=== PATIENT | male | born 1945 | race Caucasian/White ===

== ENCOUNTER 2024-11-03 08:10 | Emergency (ER) | payer OTHER, SELFPAY ==
--- OUTSIDE RECORDS SUMMARY | 2024-11-03 08:14 | XMS_ITS | Encounter Summary ---
Author Organization [employer] Address [address] [place] [address] Care Team Providers Care Thread Dresser Name Role Phone Devyn Blanc MD Primary Care Provider Reason for Visit * Reason Comments Medication Questions Entered automatical ly based on patient selection in [employer]. Encounter Details Date Type Department Care Team (Late st Contact Info) Description 08/17/2024 12:50 PM TOPOGRAPHICAL ENGINEER E-Visit [facility] [address] [address] Devyn Blanc MD [address] [place], [place] [id number] Chief Comp: Medication Questions Social History Tobacco Use Types Packs/Day Years Used Date Smoking Tobacco: Never Smokeless Tobacco: Never Alcohol Use Standard Drinks/Week Comments Yes 1 (1 standard drink = 0.6 oz pure alcohol) Alcoholic Drinks/day: Amount:1-2 drinks; Freq:2-3/week ; Sex and Gender Information Value Date Recorded Sex Assigned at Not on file Legal Sex Male 9:42 AM CDT Gender Identity Not on file Sexual Orientation Not on file Occupation Industry Job Start Date Job End Date Retired Not on file Not on file Not on file documented as of this encounter Nursing Notes * Mary Bai RN - 08/17/2024 4:06 PM CST RN called and spoke pharmacy. Pharmacy reports patient's prescription are typically sent to the [facility] in [place]. Phone number:[phone]. RN will inquire which pharmacy patient is requesting. GRAPHICAL ENGINEER documented in this encounter Plan of Treatment Upcoming Encounters Date Type Department Care Team (Late st Contact Info) Description 01/08/2025 8:30 AM CDT Appointment [facility] [address] [place] [address] [id number] Maurilio Seo MD [address] [facility] [address] [place] [phone] documented as of this encounter Visit Diagnoses Not on filedocumented in this encounter Care Teams Thread Dresser Relationship Specialty Start Date End Date Devyn Blanc MD [address] [place] [address] PCP - General Family Practice 07/11/24 documented as of this encounter
--- OUTSIDE RECORDS SUMMARY | 2024-11-03 08:14 | XMS_ITS | Clinical Summary ---
Author Organization [facility] Address [address] [place] [address] Care Team Providers Care Disease Management Nurse Name Role Phone Elsewhere, Pcp Primary Care Provider Unavailabl e Source Comments Patient records contain information from all sites at [facility]. For routine questions regarding patient records, call [phone] during business hours, M-F 8:00 AM - 5:00 PM Central Time. Record requests for emergency care only can be directed to [phone] at any time.[facility] Allergies No known active allergies Medications carbidopa-levodo pa (SINEMET) 25-100 mg per tablet Take 1 tablet by mouth 3 (three) times a day. Active finasteride (PROSCAR) 5 mg tablet Take 5 mg by mouth daily. Active losartan-hydroCH LOROthiazide (HYZAAR) 50-12.5 mg per tablet Take 1 tablet by mouth daily. Active memantine (NAMENDA) 10 mg tablet Take 10 mg by mouth 2 (two) times a day. Active psyllium husk (MetamuciL) 0.4 gram capsule Take 0.8 g by mouth 2 (two) times a day. Active pramipexole (MIRAPEX) 1.5 mg tablet Take 1.5 mg by mouth 3 (three) times a day. Active rasagiline (AZILECT) 1 mg tablet Take 1 mg by mouth daily. Active rivastigmine (EXELON) 4.6 mg/[address] 1 patch on the skin daily. Active simvastatin (ZOCOR) 20 mg tablet Take 20 mg by mouth at bedtime. Active ALPRAZolam (XANAX) 0.25 mg tablet 10/11/2023 Active amoxicillin-pot clavulanate (AUGMENTIN) 875-125 mg per tablet Take 1 tablet by mouth every 12 (twelve) hours. Active levoFLOXacin (LEVAQUIN) 750 mg tablet Take 750 mg by mouth every morning before breakfast. Active DULoxetine (CYMBALTA) [address] capsule Take 20 mg by mouth 2 (two) times a day. Active Active Problems Problem Noted Date Diagnosed Date Cellulitis Leg Right 10/01/2023 Parkinsonism Unspecified 10/01/2023 Hyperlipidemia 10/01/2023 Benign Prostatic Hyperplasia Without Obstruction 10/01/2023 Fracture Ankle Closed Subsequent Right Hypertriglyceridemia 09/07/2013 Overview (10/02/2023): Note: Unchanged - on fenofibrate Immunizations Immunization Administration Dates Next Due Influenza high dose QV(65 years or older) (PF) 0 10/02/2023 Social History Tobacco Use Types Packs/Day Years Used Date Smoking Tobacco: Never Smokeless Tobacco: Never Tobacco Cessation:Counseling Given: Not Answered [facility] [employer] Answer Date Recorded In the past 12 months has [facility] [employer], [employer], or water [employer] threatened to shut off services in your home? No 10/20/2023 Humiliation, Afraid, Rape, and Kick questionnair e Answer Date Recorded Within the last year, have y ou been afraid of your partner or ex-partner? No 10/02/2023 Within the last year, have y ou been humiliated or emotionally abused in other ways by your partner or ex-partner? No Within the last year, have y ou been kicked, hit, slapped, or otherwise physically hurt by your partner or ex-partner? No 10/02/2023 Within the last year, have y ou been raped or forced to have any kind of sexual activity by your partner or ex-partner? No 10/02/2023 Exercise Vital Sign Answer Date Recorde d On average, how many days pe r week do you engage in moderate to strenuous exercise (like a brisk walk)? 0 days 10/20/2023 On average, how many minutes do you engage in exercise at this level? 0 min 10/20/2023 Hunger Vital Sign Answer Date Recorded Within the past 12 months, y ou worried that your food would run out before you got the money to buy more. Never true 10/20/19 Within the past 12 months, t he food you bought just didn't last and you didn't have money to get more. Never true 10/20/2023 PRAPARE - Transportation Answer Date Re corded In the past 12 months, has l ack of transportation kept you from medical appointments or from getting medications? No 10/07 In the past 12 months, has l ack of transportation kept you from meetings, work, or from getting things needed for daily living? No 10/20/2023 Nutrition Answer Date Recorded On average, how many serving s of fruits and vegetables do you eat per day (serving size is equal to 1 cup or approximately the size of a tennis ball)? 0-2 10/20/2023 Dental Answer Date Recorded Dental: Regular Dentist No 10/20/19 Employment Answer Date Recorded Employment status Retired 10/20/2023 Housing Stability Answer Date Recorded What is your living situation today? I have a [facility] place to live 10/20/2023 Sex and Gender Information Value Date Recorded Sex Assigned at Male 10/20/2023 9:29 AM ELECTRICAL AND INSTRUMENTATION MECHANIC Legal Sex Male 5:50 AM ELECTRICAL AND INSTRUMENTATION MECHANIC Gender Identity Male 10/20/2023 9:29 AM ELECTRICAL AND INSTRUMENTATION MECHANIC Sexual Orientation Straight 10/20/2023 9: 29 AM ELECTRICAL AND INSTRUMENTATION MECHANIC Last Filed Vital Signs Vital Sign Reading Time Taken Comments Blood Pressure 106/80 10/05/2023 8:00 AM EST Pulse 84 10/05/2023 8:00 AM EST Temperature 36.6 C (97.8 F) 10/05/2023 8:00 AM EST Respiratory Rate 18 10/05/2023 8:00 AM EST Oxygen Saturation 95% 10/05/2023 8:00 AM EST Inhaled Oxygen Concentration - - Weight 86.7 kg (191 lb 3.2 oz) 10/01/2023 11:38 PM EST Height 180.3 cm (5' 11) 10/01/2023 11:38 PM EST Body Mass Index 26.67 10/01/2023 11:38 PM EST Plan of Treatment Health Maintenance Due Date Last Done Comments Hepatitis C Screening 1945 DTaP,Tdap,and Td Vaccines (1 - Tdap) 1965 Zoster Vaccines (1 of 2) 1996 RSV vaccine - (32-36 weeks) or 60+ years (1 - 1-dose 75+ series) 2021 COVID-19 Vaccine (4 - season) 2024 08/16/2021, 12/09/2020, 11/11/2020 Influenza Vaccine (#1) 2024 , 08/16/2021, 06/05/2020, Additional history exists Depression Screening (Annual PHQ-2) 09/06/2024 Fall Risk Screen (Annual) 09/06/2024 Creatinine Level (Kidney Function Test) 10/04/2024 10/04/2023, 10/03/2023, 10/02/2023, Additional history exists Potassium Level 10/04/2024 10/04/2023, 09/07, 10/02/2023, Additional history exists Sodium Level 10/04/2024 10/04/2023, 09/07, 10/02/2023, Additional history exists Pneumococcal vaccine (50+ years) Completed 03/16/2018, 10/07/2015 IPV Vaccines Aged Out No longer eligi ble based on patient's age to complete this topic Procedures Procedure Name Priority Date/Time Associated Diagnosis Comments BASIC METABOLIC PANEL, S/P Routine 10/04/2023 4:17 AM EST from Last 3 Months or Most Recently Relevant to Health Maintenance Results * Basic Metabolic Panel (10/04/2023 4:17 AM EST) Potassium, P 4.5 3.6 - 5.2 mmol/L 10/04/2023 5:25 AM EST [facility] Sodium, P 138 135 - 145 mmol/L 10/04/2023 5:25 AM EST [facility] Chloride, P 102 98 - 107 mmol/L 10/04/2023 5:25 AM EST [facility] Bicarbonate, P 25 22 - 29 mmol/L 10/04/2023 5:25 AM EST [facility] Anion Gap, P 11 7 - 15 10/04/2023 5:25 AM EST [facility] BUN (Blood Urea Nitrogen), P 17 8 - 24 mg/dL 10/04/2023 5:25 AM EST [facility] Creatinine 0.74 0.74 - 1.35 mg/dL 10/04/2023 5:25 AM EST [facility] Estimated GFR (eGFR) >90 >=60 mL/min/BSA 10/04/2023 5:25 AM EST [facility] Comment: Estimated GFR calculated using the 2020 CKD_EPI creatinine equation. Calcium, Total, P 9.5 8.8 - 10.2 mg/dL 10/04/2023 5:25 AM EST [facility] Glucose, P 97 70 - 140 mg/dL 10/04/2023 5:25 AM EST [facility] Blood (Blood, Venous) 10/04/2023 4:17 AM EST 10/04/2023 4:27 AM EST Venus Hagen M.D. LAB BLOOD ADD-ON Final Result [facility] [address] [place] [address], [facility] [place] [address] from Last 3 Months or Most Recently Relevant to Health Maintenance Insurance [employer] Advance Directives For more information, please contact: [phone] * Full Code (Latest Code Status on File) Date Activated Date Inactivated Comments 10/01/2023 10:34 PM 10/05/2023 1:47 PM Question Answer Comments Full Code: Discussed Care Teams Disease Management Nurse Relationship Specialty Start Date End Date Elsewhere, Pcp PCP - General Internal Medicine 10/01/23
--- OUTSIDE RECORDS SUMMARY | 2024-11-03 08:14 | XMS_ITS | Clinical Summary ---
Author Organization [facility] Address [address] [place] [address] Care Team Providers Care Other Spatial Scientist Name Role Phone Devyn Blanc MD Primary Care Provider Source Comments You are receiving this document as you are listed as the primary care provider,follow-up provider, or the patient has been referred to you for consultation.This is in compliance with the Medicare and[facility]centive [facility],which states Providers who transition their patient to another setting of careor provider of care or refers their patient to another provider of care shouldprovide summary care record for each transition of care or referral. [employer] Allergies No known active allergies Medications psyllium (METAMUCIL) 0.36 g CAPS Take 0.8 g by mouth. Active losartan-hydroc hlorothiazide (HYZAAR) 50-12.5 MG tablet Take 1 Tablet by mouth daily. 90 Tablet 3 07/11/2024 Active carbidopa-levod opa (SINEMET) 25-100 MG tablet Take 1 Tablet by mouth three times a day. 270 Tablet 3 07/24/2024 Active NUPLAZID 34 MG Take 1 Capsule (34 mg) by mouth daily. 90 Capsule 3 07/24/2024 Active rivastigmine (EXELON) 4.6 MG/24HR patch Apply 1 Patch to skin daily. 90 Patch 3 07/24/2024 Active pramipexole (MIRAPEX) 1.5 MG tablet Take 1 Tablet (1.5 mg) by mouth three times a day. 90 Tablet 3 07/24/2024 Active memantine (NAMENDA) 10 MG tablet Take 1 Tablet (10 mg) by mouth two times a day. 180 Tablet 3 07/24/2024 Active DULoxetine (CYMBALTA) 60 MG capsule Take 1 Capsule (60 mg) by mouth daily. 90 Capsule 3 08/22/2024 Active simvastatin (ZOCOR) 20 MG tablet Take 1 Tablet (20 mg) by mouth every evening. 90 Tablet 3 08/22/2024 Active losartan (COZAAR) 50 MG tablet Take 1 Tablet (50 mg) by mouth daily. with losartan-hyd rochlorothii azide 50-12.5 mg tablet. 90 Tablet 3 08/22/2024 Active nystatin (MYCOSTATIN) 267528 UNIT/ML suspension Take 10 mL by mouth. 06/19/2024 Active famotidine (PEPCID) 20 MG tablet Take 1 Tablet (20 mg) by mouth two times daily as needed for Heartburn. 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 07/11/2024 Memory changes 07/11/2024 Parkinson's disease 10/01/2023 Closed fracture of ankle 10/01/2023 Benign prostatic hyperplasia 08/13/2011 Essential hypertension 08/21/2010 Overview (04/28/2017): Hypertension Hyperlipidemia 07/16/2009 Undiagnosed cardiac murmurs 07/05/2008 Overview (04/28/2017): LW Modifier: Minimal Aortic valve insufficiency LW Onset: 2003 ; Heart Murmur Resolved Problems Problem Noted Date Diagnosed Date Resolved Date Special screening for malign ant neoplasms, colon 08/21/2010 07/11/2024 Overview (04/28/2017): LW Modifier: repeat in 10 yrs LW Onset: 03/2003 ; Ca Colon Screening Olecranon bursitis 07/05/2008 4 Overview (04/28/2017): LW Modifier: S/P I+D, right LW Onset: 2004 ; Bursitis Olecranon Other specified disorders of kidney and ureter 07/05/2008 07/11/2024 Overview (04/28/2017): LW Modifier: S/p surgery, right LW Onset: age 4 ; Kidney & Ureter Disorder NOS Esophageal reflux 02/10/2003 07/11/2024 Overview (04/28/2017): Gastroesophageal Reflux Disease Lumbago 02/10/2003 07/11/2024 Overview (04/28/2017): Pain Low Back Encounters Date Type Department Care Team Description 09/27/2024 Refill [facility] [address] [place] [address] Devyn Blanc MD Refill (finasteride (PROSCAR) 5 MG tablet [Pharmacy Med Name: FINASTERIDE 5 MG TABLET]) 09/05/2024 3:00 PM ROLLING ATTENDANT Lab Visit [facility] [address] [place] [address] Essential hypertension (HRC); Preop examination 09/05/2024 2:30 PM ROLLING ATTENDANT Pre-Op Visit [facility] [address] [place] [address] Devyn Blanc MD Preop examination (Primary Dx); Essential hypertension (HRC); Hyperlipidemia, unspecified hyperlipidemia type (HRC); Parkinson's disease, unspecified whether dyskinesia present, unspecified whether manifestations fluctuate (HRC); Benign prostatic hyperplasia, unspecified whether lower urinary tract symptoms present; Memory changes; History of bilateral knee replacement; Closed fracture of right ankle with delayed healing, subsequent encounter; Mild episode of recurrent major depressive disorder (HRC) 08/21/2024 1:00 PM ROLLING ATTENDANT E-Visit [facility] [address] [place] [address] Devyn Blanc MD Chief Comp: Medication Questions 08/21/2024 Refill [facility] [address] [place] [address] Devyn Blanc MD Refill 08/17/2024 12:50 PM ROLLING ATTENDANT E-Visit [facility] [address] [place] [address] Devyn Blanc MD Chief Comp: Medication Questions from Last 3 Months Immunizations Immunization Administration Dates Next Due Flu Vac Preserv Free (3+yrs) 06/15/2012, 08/13/2011,08/21/2010,2007 Influenza IIV4 (Quadrivalent ) Fluzone, 65+ Yrs 10/02/2023 PCV20 ([id number]) 09/05/2024 PPSV23 (Pneumovax) 06/15/2012 TDAP (ADACEL) 12/02/2010 Td 06/04/2003 Family History Medical History Relation Name Comments Osteoarthritis Mother High Cholesterol Brother 1 Maurilio High Cholesterol Brother 2 Reddy High Cholesterol Brother 3 High Cholesterol Brother 4 High Cholesterol Sister 1 Erika High Cholesterol Sister 2 Relation Name Status Comments Mother Brother 1 Maurilio Brother 2 Reddy Brother 3 Brother 4 Sister 1 Erika Sister 2 Social History Tobacco Use Types Packs/Day Years Used Date Smoking Tobacco: Never Smokeless Tobacco: Never Tobacco Cessation:Counseling Given: Not Answered Alcohol Use Standard Drinks/Week Comments Yes 6 (1 standard drink = 0.6 oz pure alcohol) Alcoholic Drinks/day: Amount:1-2 drinks; Freq:2-3/week ; PHQ-2 Answer Date Recorded PHQ-2 Score 1 09/05/2024 Sex and Gender Information Value Date Recorded Sex Assigned at Not on file Legal Sex Male 9:42 AM CDT Gender Identity Not on file Sexual Orientation Not on file Occupation Industry Job Start Date Job End Date Retired Not on file Not on file Not on file Last Filed Vital Signs Vital Sign Reading Time Taken Comments Blood Pressure 123/80 09/05/2024 2:18 PM ROLLING ATTENDANT Pulse 74 09/05/2024 2:18 PM ROLLING ATTENDANT Temperature 36.6 C (97.9 F) 09/22/2006 9:38 AM ROLLING ATTENDANT C: 36.6 C Respiratory Rate 16 09/22/2006 9:38 AM ROLLING ATTENDANT Oxygen Saturation 96% 09/22/2006 9:38 AM ROLLING ATTENDANT Inhaled Oxygen Concentration - - Weight 101.7 kg (224 lb 3.2 oz) 09/05/2024 2:18 PM ROLLING ATTENDANT Height 179.5 cm (5' 10.67) 09/05/2024 2:[address] Body Mass Index 31.56 09/05/2024 2:18 PM ROLLING ATTENDANT Plan of Treatment Upcoming Encounters Date Type Department Care Team (Late st Contact Info) Description 01/08/2025 8:30 AM CDT Appointment [facility] [address] [place], [place] [id number] Maurilio Seo MD [address] [facility] [address] [place] [phone] Health Maintenance Due Date Last Done Comments Hep C Screening (Preventive Services) 1945 Zoster/Shingles (1 of 2) 1996 Colonoscopy 05/13/2003 05/12/2003 DTaP/Tdap/Td (2 - Tdap) 12/02/2020 12/02/2010, 06/04 RSV (1 - 1-dose 75+ series) 2021 COVID-19 Vaccine ( - season) 2024 Influenza (#1) 2024 10/02/2023, 06/06, 08/13/2011, Additional history exists Medicare Annual Wellness Visit 09/06/2024 09/06/2023 (Completed) Cholesterol Discontinued 06/13/2012, 03/2011, 08/21/2010, Additional history exists Pneumococcal 50+ Yrs Completed 09/05/2024, 06/15/20 12 HepA Aged Out No longer eligi ble based on patient's age to complete this topic HepB Aged Out No longer eligi ble based on patient's age to complete this topic Hib Aged Out No longer eligi ble based on patient's age to complete this topic IPV (Polio) Aged Out No longer eligi ble based on patient's age to complete this topic MCV4 Aged Out No longer eligi ble based on patient's age to complete this topic Meningococcal B Aged Out No longer el igible based on patient's age to complete this topic Procedures Procedure Name Priority Date/Time Associated Diagnosis Comments COMPLETE BLOOD COUNT-W/DIFF Routine 09/05/2024 3:03 PM ROLLING ATTENDANT Essential hypertension (HRC) Preop examination BASIC METABOLIC PANEL Routine 09/05/2024 3:03 PM ROLLING ATTENDANT Essential hypertension (HRC) Preop examination CBC AND DIFFERENTIAL PANEL Routine 09/05/2024 3:03 PM ROLLING ATTENDANT Essential hypertension (HRC) Preop examination ECG 12 LEAD OUTPATIENT Routine 09/05/2024 2:52 PM ROLLING ATTENDANT Essential hypertension (HRC) LIPID PANEL & DIRECT LDL (IF NEEDED) Routine 06/13/2012 8:11 AM CDT Other and unspecified hyperlipidemia (HRC) ENDOSCOPY, COLON, SCREENING/DIAGNOSTIC Routine 05/12/2003 3:14 PM CDT from Last 3 Months or Most Recently Relevant to Health Maintenance Results * (ABNORMAL) Complete Blood Count-W/Diff (09/05/2024 3:03 PM ROLLING ATTENDANT) WBC 7.5 3.5 - 10.5 x10(9)/L 09/05/2024 3:08 PM ROLLING ATTENDANT [facility] RBC 5.22 4.32 - 5.72 x10(12)/L 09/05/2024 3:08 PM ROLLING ATTENDANT [facility] Hemoglobin 14.3 13.5 - 17.5 g/dL 09/05/2024 3:08 PM ROLLING ATTENDANT [facility] HCT 44.5 38.8 - 50.0 % 09/05/2024 3:08 PM ROLLING ATTENDANT [facility] MCV 85.2 80.0 - 100.0 fL 09/05/2024 3:08 PM ROLLING ATTENDANT [facility] MCH 27.4(L) 27.6 - 33.3 pg 09/05/2024 3:08 PM ROLLING ATTENDANT [facility] MCHC 32.1 31.5 - 35.2 g/dL 09/05/2024 3:08 PM ROLLING ATTENDANT [facility] RDW 15.4 11.9 - 15.5 % 09/05/2024 3:08 PM ROLLING ATTENDANT [facility] Platelets 201 150 - 450 x10(9)/L 09/05/2024 3:08 PM ROLLING ATTENDANT [facility] Neutrophil Absolute 4.4 1.7 - 7.0 10(9)/L 09/05/2024 3:08 PM ROLLING ATTENDANT [facility] Lymphocyte Absolute 1.9 1.0 - 4.8 10(9)/L 09/05/2024 3:08 PM ROLLING ATTENDANT [facility] Monocyte Absolute 0.9 0.2 - 0.9 10(9)/L 09/05/2024 3:08 PM ROLLING ATTENDANT [facility] Eosinophil Absolute 0.3 0.0 - 0.5 10(9)/L 09/05/2024 3:08 PM ROLLING ATTENDANT [facility] Basophil Absolute 0.1 0.0 - 0.3 10(9)/L 09/05/2024 3:08 PM ROLLING ATTENDANT [facility] Blood Venipuncture / Unknown 09/05/2024 3:03 PM ROLLING ATTENDANT 09/05/2024 3:03 PM ROLLING ATTENDANT Devyn Blanc MD LAB_[address] [facility] [address] [place] [address], [facility] * (ABNORMAL) Basic Metabolic Panel (09/05/2024 3:03 PM ROLLING ATTENDANT) Sodium 139 136 - 145 mmol/L 09/05/2024 8:16 PM ROLLING ATTENDANT [facility] Potassium 3.6 3.5 - 5.1 mmol/L 09/05/2024 8:16 PM ROLLING ATTENDANT [facility] Chloride 105 98 - 109 mmol/L 09/05/2024 8:16 PM ROLLING ATTENDANT [facility] CO2 28 20 - 29 mmol/L 09/05/2024 8:16 PM ROLLING ATTENDANT [facility] Anion Gap 6 6 - 16 mmol/L 09/05/2024 8:16 PM ROLLING ATTENDANT [facility] Calcium 9.8 8.4 - 10.4 mg/dL 09/05/2024 8:16 PM ROLLING ATTENDANT [facility] BUN 11 7 - 26 mg/dL 09/05/2024 8:16 PM ROLLING ATTENDANT [facility] Creatinine 0.63(L) 0.73 - 1.18 mg/dL 09/05/2024 8:16 PM ROLLING ATTENDANT [facility] Glucose 94 70 - 100 mg/dL 09/05/2024 8:16 PM ROLLING ATTENDANT [facility] Comment:The given reference range is for the fasting state. Non-fasting reference range for glucose is 70 - 180 mg/dL. GFR, Estimated >60 >60 mL/min/1.7 3m2 09/05/2024 8:16 PM ROLLING ATTENDANT [facility] Hours Fasting 0.0 8 - 12 Hours 09/05/2024 8:16 PM ROLLING ATTENDANT [facility] Blood Venipuncture / Unknown 09/05/2024 3:03 PM ROLLING ATTENDANT 09/05/2024 3:03 PM ROLLING ATTENDANT us Devyn Blanc MD LAB_1 Final Result [facility] [address] * ECG 12 Lead (Clinical Foxing Cutting Machine Operator to perform) (09/05/2024 2:52 PM ROLLING ATTENDANT) Ventricular Rate 66 BPM [facility] Atrial Rate 66 BPM [facility] P-R Interval 216 ms [facility] QRS Duration 108 ms [facility] QT 334 ms [facility] QTC 350 ms [facility] P [place] 43 degrees [facility] R [place] -42 degrees [facility] T [place] 21 degrees [facility] 09/05/2024 2:52 PM ROLLING ATTENDANT Narrative [facility] - 09/05/2024 3:21 PM ROLLING ATTENDANT Sinus rhythm with marked sinus arrhythmia with 1st degree A-V block Left axis deviation Nonspecific ST and T wave abnormality Abnormal ECG When compared with ECG of 21-AUG-2010 09:11, No significant change Confirmed by Familia Luevano ([id number]) on 09/05/2024 3:21:24 PM Procedure Note Familia Luevano MD - 09/05/2024 Sinus rhythm with marked sinus arrhythmia with 1st degree A-V block Left axis deviation Nonspecific ST and T wave abnormality Abnormal ECG When compared with ECG of 21-AUG-2010 09:11, No significant change Confirmed by Familia Luevano ([id number]) on 09/05/2024 3:21:24 PM Devyn Blanc MD PN ECG ORDERABLES Delilah santos Result Performing Organization Address [facility] Co de Phone Number [facility] [address] [place] [address] * (ABNORMAL) Lipid Panel and Direct LDL(If Needed) (06/13/2012 8:11 AM CDT) Cholesterol 173 0 - 200 mg/dL HP CONVERSION Triglycerides 150(H) 0 - 149 mg/dL HP CONVERSION HDL Cholesterol 48 >39 mg/dL HP CONVERSION Cholesterol/HDL Ratio Screen 3.6 HP CONVERSION LDL Calculated 95 19 - 130 mg/dL HP CONVERSION Hours Fasting 12.0 HP CONVERSION 06/13/2012 8:11 AM CDT 06/13/2012 11:35 AM CDT Narrative HP CONVERSION - 06/13/2012 5:24 PM CDT Performed at [facility], [address] [place] [address] us Bienvenido Zarate MD LAB_1 Final Resul t Performing Organization Address [facility] de Phone Number HP CONVERSION * Endoscopy, colon, diagnostic (05/12/2003 3:14 PM CDT) Anatomical Region Laterality Modality Other us User Conversion ET GI PROCEDURE ORDERABLES Final Result from Last 3 Months or Most Recently Relevant to Health Maintenance Insurance [employer] Care Teams Other Spatial Scientist Relationship Specialty Start Date End Date Devyn Blanc MD [address] [place] [address] PCP - General Family Practice 07/11/24
--- OUTSIDE RECORDS SUMMARY | 2024-11-03 08:14 | XMS_ITS | Clinical Summary ---
Author Organization [facility] Address [address] [address] Phone Care Team Providers Care Warble Saw Operator Name Role Phone Elsewhere, Pcp Primary Care Provider Unavailabl e Allergies No known active allergies Medications carbidopa-levo dopa (Sinemet) 25-100 MG oral tablet Take 1 Tablet by mouth three times a day. 4 Active DULoxetine (Cymbalta) 60 MG delayed release capsule Take 60 mg by mouth one time a day. 4 Active famotidine (Pepcid) 20 MG tablet Take 20 mg by mouth two times a day as needed. 4 Active memantine (Namenda) 10 MG tablet Take 10 mg by mouth two times a day. 4 Active Psyllium (Metamucil) 0.36 g capsule Take 0.8 g by mouth two times a day. Active pimavanserin tartrate (Nuplazid) 34 MG capsule Take 34 mg by mouth one time a day. 4 Active pramipexole (Mirapex) 1.5 MG tablet Take 1.5 mg by mouth three times a day. 4 Active rivastigmine (Exelon) 4.6 MG/24HR patch Place 1 Patch onto the skin one time a day. 4 Active simvastatin (Zocor) 20 MG tablet Take 20 mg by mouth at bedtime. Active docusate sodium (Colace) 100 MG capsule Take 100 mg by mouth two times a day. Active melatonin 5 MG tablet Take 10 mg by mouth at bedtime. Active finasteride (Proscar) 5 MG tablet Take 1 Tablet by mouth one time a day. 4 Active losartan (Cozaar) 50 MG tablet Take 50 mg by mouth one time a day. Active ibuprofen (Motrin) 800 MG tablet Take 1 Tablet by mouth every six hours as needed for Pain. Administer with food. 5 Active HYDROcodone-ac etaminophen (Sesser) 5-325 MG oral tabletIndicati ons:History of total ankle replacement, right Take 1 Tablet by mouth every six hours as needed for Pain. Limit acetaminophen to 4000 mg per day from all sources. 5 Active hydrOXYzine HCl (Atarax) 10 MG tablet Take 1 Tablet by mouth every four hours as needed for Itching or Other (muscle spasms). 5 Active senna-docusate (Senokot-S) 8.6-50 MG oral tablet Take 1 Tablet by mouth two times a day. 90 Tablet 5 Active omeprazole (PriLOSEC OTC) 20 MG delayed-releas e tablet Take 1 Tablet by mouth every morning before breakfast. Tablet should be swallowed whole; do not crush or chew. Take before meals. 30 Tablet 5 Active losartan-hydro CHLOROthiazide (Hyzaar) 50-12.5 MG oral tablet Take 1 Tablet by mouth one time a day. 5 Active aspirin EC 325 MG tablet Take 1 Tablet by mouth one time a day for 30 days. Do not split or crush. 42 Tablet 5 025 Active Problems Problem Noted Date Diagnosed Date History of total ankle replacement, right 2024 Encounters Date Type Department Care Team Description 09/22/2024 7:02 AM [facility] Anest[facility] OR [address] [place] [phone] Navarro Jimenez, Danny Soliman MD 09/22/2024 7:00 AM ANALYSIS ANALYST - 09/22/2024 9:10 AM [facility] Surgery [facility] OR [address] [place] [address] [place] [id number] Santiago Rosado MD Right total ankle arthroplasty WITH TENDOACHILLES LENGTHENING 09/22/2024 6:30 AM ANALYSIS ANALYST Ancillary Procedure [facility] [address] [place] [id number] 09/22/2024 5:10 AM ANALYSIS ANALYST Ancillary Procedure [facility] OS FILMS [address] [facility] [place] [id number] 09/22/2024 5:02 AM ANALYSIS ANALYST - 09/23/2024 11:30 AM ANALYSIS ANALYST Hospital Encounter [facility] IN[facility]IENT [address] [place] [address] [place] [phone] Santiago Rosado MD History of total ankle replacement, right (Primary Dx) Discharge Disposition: Home and/or Self Care 09/22/2024 Travel 09/19/2024 Travel from Last 3 Months Surgical History Surgery Date Site/Laterality Comments REMOVAL GALLBLADDER [facility] SURGERY I&D HERNIA REPAIR LAMINECTOMY,LUMBAR REPAIR ROTATOR CUFF,ACUTE Left SPINE SURGERY TONSILLECTOMY UMBILICAL HERNIA REPAIR URETER SURGERY age 4 TOTAL ANKLE ARTHROPLASTY 09/22/2024 Ankle/Right Procedure: Right total ankle arthroplasty WITH TENDOACHILLES LENGTHENING; Surgeon: Santiago Rosado MD; Location: [facility] OR Medical devices from this surgery are in the Medical Devices section. Social History Tobacco Use Types Packs/Day Years Used Date Smoking Tobacco: Never Smokeless Tobacco: Never Tobacco Cessation:Counseling Given: Not Answered Alcohol Use Standard Drinks/Week Comments Yes 7 (1 standard drink = 0.6 oz pur e alcohol) [facility] Utilities Answer Date Recorded In the past 12 months has [employer], gas, oil, or water [employer] threatened to shut off services in your home? No 09/22/2024 Hunger Vital Sign Answer Date Recorded Within the past 12 months, y ou worried that your food would run out before you got the money to buy more. Never true 09/22/19 25 Within the past 12 months, t he food you bought just didn't last and you didn't have money to get more. Never true 09/22/2024 PRAPARE - Transportation Answer Date Re corded In the past 12 months, has l ack of transportation kept you from medical appointments or from getting medications? No 09/06 In the past 12 months, has l ack of transportation kept you from meetings, work, or from getting things needed for daily living? No 09/22/2024 Housing Stability Vital Sign Answer Mert e Recorded In the last 12 months, was t here a time when you were not able to pay the mortgage or rent on time? No 09/22/2024 In the past 12 months, how m any times have you moved where you were living? 0 09/22/2024 At any time in the past 12 m [facility], were you homeless or living in a senior care (including now)? No 09/22/2024 EH IP Custom IPV Answer Date Recorded Do you feel UNSAFE in any of your personal relationships with your family members or any other acquaintances? No 2024 Sex and Gender Information Value Date Recorded Sex Assigned at Male 09/19/2024 11:21 AM ANALYSIS ANALYST Legal Sex Male 2:54 PM ANALYSIS ANALYST Gender Identity Male 09/19/2024 11:21 AM ANALYSIS ANALYST Sexual Orientation Not on file Obstetrics History Last Filed Vital Signs Vital Sign Reading Time Taken Comments Blood Pressure 135/83 09/23/2024 8:09 AM ANALYSIS ANALYST Pulse 81 09/23/2024 8:09 AM ANALYSIS ANALYST Temperature 36.8 C (98.2 F) 09/23/2024 5:10 AM ANALYSIS ANALYST Respiratory Rate 16 09/23/2024 5:10 AM ANALYSIS ANALYST Oxygen Saturation 92% 09/23/2024 8:09 AM ANALYSIS ANALYST Inhaled Oxygen Concentration - - Weight 100.7 kg (222 lb) 09/11/2024 12:01 PM ANALYSIS ANALYST Height 180.3 cm (5' 11) 09/11/2024 12:01 PM ANALYSIS ANALYST Body Mass Index 30.96 09/11/2024 12:01 PM ANALYSIS ANALYST Plan of Treatment Health Maintenance Due Date Last Done Comments PERTUSSIS (Standing Order) 1965 TETANUS (Standing Order) 1965 Pneumococcal Vaccine: 50+ yr s (Standing Order) (1 of 1 - PCV) 1996 Shingrix (Zoster recombinant ) vaccine (Standing Order) (1 of 2) 1996 RSV Vaccination (60+ yrs) (Abrysvo/Arexvy) (1 - 1-dose 75+ series) 2021 COVID-19 Vaccine (2023-2 5 season) 2024 Influenza Vaccine Seasonal (Standing Order) (#1) 2024 HPV Vaccine (Standing Order) Aged Out No longer eligible based on patient's age to complete this topic Hepatitis B Vaccine (Standin g Order) Aged Out No longer eligible b ased on patient's age to complete this topic Medical Devices Implanted Type Area Charge Entry Device Identifier Shelf Expiration Date Model / Serial / Lot Tray Tibial Corine Talaris Xl Size 2 - [id number] Implanted:Qty: 1 on 09/22/2024 by Santiago Rosado MD at [facility] Right: Ankle [employer] [id number] 03/06/2028 [id number] / N/A / [id number] Implant Tibial Corine Talaris Sz 2 Rt - [id number] Implanted:Qty: 1 on 09/22/2024 by Santiago Rosado MD at [facility] Right: Ankle [employer] NEPHEW [id number] 06/06/2029 [id number] / N/A / [id number] Component Talar Corine Talaris Sz 2 Rt - [id number] Implanted:Qty: 1 on 09/22/2024 by Santiago Rosado MD at [facility] Right: Ankle IVY [employer] NEPHEW 04/06/2026 [id number] / NA / [id number] Procedures Procedure Name Priority Date/Time Associated Diagnosis Comments HEMOGLOBIN Routine 09/23/2024 6:39 AM ANALYSIS ANALYST XR C ARM FLUORO Routine 09/22/2024 9:46 AM ANALYSIS ANALYST CULTURE, ANAEROBIC Routine 09/22/2024 7: 46 AM ANALYSIS ANALYST GRAM STAIN Routine 09/22/2024 7:46 AM ANALYSIS ANALYST TISSUE CULTURE Routine 09/22/2024 7:46 AM ANALYSIS ANALYST ANESTHESIA BLOCK SPINAL 09/22/2024 7:05 AM ANALYSIS ANALYST TOTAL ANKLE REPLACEMENT Same Day Discharge 09/22/2024 7:02 AM ANALYSIS ANALYST M19. 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 Case Notes Integra corine total ankle implant large c-arm anesthesia: general with block Special Needs same day surgery UNILATERAL LOWER EXTREMITY FASCIAL PLANE BLOCK BY INJECTIONS 09/22/2024 6:59 AM ANALYSIS ANALYST INJECT NERV BLCK,SCIATIC NERVE 09/22/2024 6:59 AM ANALYSIS ANALYST US ANES REFERENCE STAT 09/22/2024 5:0 8 AM ANALYSIS ANALYST from Last 3 Months Results * (ABNORMAL) HEMOGLOBIN (09/23/2024 6:39 AM ANALYSIS ANALYST) HGB 11.9(L) 13.0 - 18.0 g/dl 09/23/2024 7:29 AM ANALYSIS ANALYST [facility] Blood BLOOD SPECIMEN / Unknown Venipuncture / Unknown 09/23/2024 6:39 AM ANALYSIS ANALYST 09/23/2024 7:25 AM ANALYSIS ANALYST Tian Wolf PA-C EC HEMATOLOGY ORDERABLES Fi nal Result Performing Organization Address City/State/[facility] Co de Phone Number [facility] [address] [place] [address] * XR C ARM FLUORO (09/22/2024 9:46 AM ANALYSIS ANALYST) Anatomical Region Laterality Modality Radiographic Camille ging 09/22/2024 7:09 AM ANALYSIS ANALYST Narrative 09/22/2024 9:53 AM ANALYSIS ANALYST PROCEDURE: C-ARM FLUOROSCOPIC SUPPORT HISTORY: Placement. TECHNIQUE: C-arm fluoroscopic imaging. Total fluoroscopy time: 32 seconds. Number of saved fluoroscopic images: 9. COMPARISON: None. IMPRESSION: The patient has undergone a right total ankle arthroplasty. No unexpected foreign body on the final image. Please see the operative note for additional details. Electronically signed by Guevara Galdamez MD Report Date: 09/22/2024 9:53 AM Procedure Note Guevara Galdamez MD - 09/22/2024 PROCEDURE: C-ARM FLUOROSCOPIC SUPPORT HISTORY: Placement. TECHNIQUE: C-arm fluoroscopic imaging. Total fluoroscopy time: 32 seconds. Number of saved fluoroscopic images: 9. COMPARISON: None. IMPRESSION: The patient has undergone a right total ankle arthroplasty. Nounexpected foreign body on the final image. Please see the operative note foradditional details. Electronically signed by Guevara Galdamez MD Report Date: 09/22/2024 9:53 AM Tian Wolf PA-C EC DIAGNOSTIC IMAGING ORDER [place]AN[place]ES[place] Final Result * CULTURE, ANAEROBIC (09/22/2024 7:46 AM ANALYSIS ANALYST) Bacterial Culture, Anaerobic SEE COMMENTS 10/07/2024 2:[address] [facility] Comment: SOURCE: ANKLE, RIGHT, RIGHT ANKLE BACTERIAL CULTURE, ANAEROBIC FINAL No growth after 14 days of incubation. Test Performed by: [place] [address] [employer] Supervisor: Lenora Ramirez Ph.D.; CLIA# [id number] Tissue ANKLE REGION STRUCTURE / Unknown Non-blood collection / Unknown 09/22/2024 7:46 AM ANALYSIS ANALYST 09/22/2024 7:53 AM ANALYSIS ANALYST Comment:Pre-op diagnosis: M19. 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 [address] [place] [address] * GRAM STAIN (09/22/2024 7:46 AM ANALYSIS ANALYST) Gram Stain No organisms seen 09/23/2024 9:11 AM ANALYSIS ANALYST [facility] Comment:No cells seen Tissue ANKLE REGION STRUCTURE / Unknown Non-blood collection / Unknown 09/22/2024 7:46 AM ANALYSIS ANALYST 09/22/2024 7:53 AM ANALYSIS ANALYST Comment:Pre-op diagnosis: M19. 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 Santiago CAICEDO MICROBIOLOGY - GENERAL OR DERABLES Final Result Performing Organization Address City/[facility] Co de Phone Number [facility] [address] [place], [place] [phone] [place] [address] * TISSUE CULTURE (09/22/2024 7:46 AM ANALYSIS ANALYST) Tissue Culture No Growth at 72 hours 09/25/2024 8:05 AM ANALYSIS ANALYST [facility] Tissue ANKLE REGION STRUCTURE / Unknown Non-blood collection / Unknown 09/22/2024 7:46 AM ANALYSIS ANALYST 09/22/2024 7:53 AM ANALYSIS ANALYST Comment:Pre-op diagnosis: M19. 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 us Santiago CAICEDO MICROBIOLOGY - GENERAL OR DERABLES Final Result Performing Organization Address [facility] Co de Phone Number [facility] [address] [place], [place] [phone] [place] [address] * Spinal (09/22/2024 7:05 AM ANALYSIS ANALYST) Narrative Navarro Jimenez DO - 09/22/2024 7:05 AM ANALYSIS ANALYST Navarro Jimenez DO 09/22/2024 7:26 AM Spinal Patient location during procedure: OR Reason for block: at surgeon's request and primary anesthetic Performed by: Navarro Jimenez DO Authorized by: Navarro Jimenez DO Start time: 09/22/2024 7:05 AM End time: 09/22/2024 7:09 AM Preanesthetic Checklist Completed: patient identified, site marked, surgical consent, pre-op evaluation, timeout performed, IV checked, risks and benefits discussed and monitors and equipment checked Spinal Block Patient position: sitting Prep: ChloraPrep Patient monitoring: heart rate, soapstoner and continuous pulse ox Approach: midline Location: L3-4 Needle Needle type: Pencan Needle gauge: 24 G Medications Administered mepivacaine 2% PF(Carbocaine PF/Polocaine-MPF) preservative free injection - Intrathecal 3 mL - 09/22/2024 7:05:00 AM Assessment Sensory level: Adequate Events: cerebrospinal fluid Procedure assessment: patient sedated but conversant throughout procedure us Navarro Jimenez DO PROCEDURE/MINOR CORRY ORDERABLES F inal Result * UNILATERAL LOWER EXTREMITY FASCIAL PLANE BLOCK BY INJECTIONS (09/22/2024 6:59 AM ANALYSIS ANALYST) Navarro Kline DO - 09/22/2024 6:59 AM ANALYSIS ANALYST Navarro Jimenez DO 09/22/2024 6:59 AM Nerve Block Patient location during procedure: pre-op Reason for block: at surgeon's request and post-op pain management Performed by: Navarro Jimenez DO Authorized by: Navarro Jimenez DO Start time: 09/22/2024 6:43 AM End time: 09/22/2024 6:45 AM Preanesthetic Checklist Completed: patient identified, site marked, surgical consent, pre-op evaluation, timeout performed, IV checked, risks and benefits discussed and monitors and equipment checked Peripheral Block Patient position: supine Prep: ChloraPrep Patient monitoring: heart rate, continuous pulse oximetry, soapstoner and blood pressure monitoring Block type: adductor canal block Laterality: right Injection technique: single-shotInjected at:09/22/2024 6:43 AM Needle Needle type: short-bevel Needle gauge: 20 G Needle length: 4 in Needle localization: ultrasound guidance Images available in PACS. Needle tip was noted to be adjacent to the nerve/plexus identified Assessment Injection assessment: no paresthesia on injection, negative aspiration for heme, incremental injection and local visualized surrounding nerve on ultrasound Heart rate change: no Slow fractionated injection: yes Additional Notes No apparent pathology noted on focused ultrasound view. The surgeon has ordered a post-operative pain block to assist with post-surgical pain control. This falls outside the surgeon's expertise and the scope of the surgeon's routine post-surgical pain management, and the surgeon has requested my expertise to administer this block. Regional analgesia will be administered by the attending physician Anesthesiologist, who is uniquely qualified to perform this type of procedure. Navarro Jimenez DO PROCEDURE/MINOR CORRY ORDERABLES F inal Result * INJECT NERV BLCK,SCIATIC NERVE (09/22/2024 6:59 AM ANALYSIS ANALYST) Navarro Kline DO - 09/22/2024 6:59 AM ANALYSIS ANALYST Navarro Jimenez DO 09/22/2024 6:59 AM Nerve Block Patient location during procedure: pre-op Reason for block: at surgeon's request and post-op pain management Performed by: Navarro Jimenez DO Authorized by: Navarro Jimenez DO Start time: 09/22/2024 6:40 AM End time: 09/22/2024 6:42 AM Preanesthetic Checklist Completed: patient identified, site marked, surgical consent, pre-op evaluation, timeout performed, IV checked, risks and benefits discussed and monitors and equipment checked Peripheral Block Patient position: supine Prep: ChloraPrep Patient monitoring: heart rate, continuous pulse oximetry, soapstoner and blood pressure monitoring Block type: popliteal Laterality: right Injection technique: single-shotInjected at:09/22/2024 6:40 AM Needle Needle type: short-bevel Needle gauge: 20 G Needle length: 4 in Needle localization: ultrasound guidance Images available in PACS. Needle tip was noted to be adjacent to the nerve/plexus identified Assessment Injection assessment: incremental injection, no paresthesia on injection, local visualized surrounding nerve on ultrasound and negative aspiration for heme Heart rate change: no Slow fractionated injection: yes Additional Notes No apparent pathology noted on focused ultrasound view. The surgeon has ordered a post-operative pain block to assist with post-surgical pain control. This falls outside the surgeon's expertise and the scope of the surgeon's routine post-surgical pain management, and the surgeon has requested my expertise to administer this block. Regional analgesia will be administered by the attending physician Anesthesiologist, who is uniquely qualified to perform this type of procedure. us Navarro Jimenez DO PROCEDURE/MINOR CORRY ORDERABLES F inal Result * US ANES REFERENCE (09/22/2024 5:08 AM ANALYSIS ANALYST) Narrative Marina, User - 09/22/2024 5:08 AM ANALYSIS ANALYST There is not a diagnostic result associated with the image(s). Please refer to either the Notes/Trans, Procedures, LDA or Anesthesia tab in the patients chart for clinical information the performing provider may have documented. The actual image(s) were acquired at the on . This order was placed into the system and automatically finalized on 09/22/2024. Danny Lagos MD EC OS FILMS IMAGING ORDERABLES F inal Result from Last 3 Months Insurance [employer] MED[employer]ARE [employer]VANTAGE Advance Directives For more information, please contact: [phone] Documents on File Type Date Recorded Patient Plumber Assistant Expl anation Advance Directive - RV 09/22/2024 12:29 PM Advance Directive * Full Code (Latest Code Status on File) Date Activated Date Inactivated Comments 09/22/2024 11:27 AM 09/23/2024 3:35 PM * Full Code Date Activated Date Inactivated Comments 09/22/2024 11:07 AM 09/22/2024 11:27 AM * Full Code Date Activated Date Inactivated Comments 09/22/2024 5:08 AM 09/22/2024 11:07 AM Care Teams Warble Saw Operator Relationship Specialty Start Date End Date Elsewhere, Pcp PCP - General 09/18/24
--- OUTSIDE RECORDS SUMMARY | 2024-11-03 08:15 | XMS_ITS | Encounter Summary ---
Author Organization [facility] Address [address] [address] Phone Care Team Providers Care Neurology Stroke Physician Name Role Phone Elsewhere, Pcp Primary Care Provider Unavailabl e Reason for Visit * Reason Onset Date Comments Pre-Procedure Call 09/08/2024 * Auth/Cert Specialty Diagnoses / Procedures Referred By Rashad tucker Referred To Contact Diagnoses M19. 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 Procedures TOTAL ANKLE REPLACEMENT Right total ankle arthroplasty with possible irrigation and debridement Santiago Rosado MD [address] [place] [address] Phone: tel: fax: Referral ID Status Reason Start Date Expiration Date Visits Re quested Visits Authorized [id number] 1 1 Encounter Details Date Type Department Care Team (Late st Contact Info) Description 09/22/2024 7:00 AM [employer] - 09/22/2024 9:10 AM [facility] Surgery [facility] OR [address] [place] [id number] Santiago Rosado MD [address] [id number] Right total ankle arthroplasty WITH TENDOACHILLES LENGTHENING Surgery Details Date/Time Status Location OR Service Patient Class Case Class Case Type Trauma Case? 09/22/2024 7:00 AM Posted -[facility] OR OR Orthopedic Outpatient Surgery Same Day Discharge Panel 1 Procedure LRB Anes Op Region Wound Class Comments Right total ankle arthroplas ty WITH TENDOACHILLES LENGTHENING Right Spinal Ankle Clean Cont aminated Surgeon Surgeon Role Service Panel Santiago Rosado MD Primary Orthopedic 1 Sasha Hawkins PA-C Assisting Orthopedic 1 Case Notes Vance díaz total ankle implant large c-arm anesthesia: general with block Special Needs same day surgery documented in this encounter Social History Tobacco Use Types Packs/Day Years Used Date Smoking Tobacco: Never Smokeless Tobacco: Never Tobacco Cessation:Counseling Given: Not Answered Alcohol Use Standard Drinks/Week Comments Yes 7 (1 standard drink = 0.6 oz pur e alcohol) [place] Utilities Answer Date Recorded In the past 12 months has th e electric, gas, oil, or water company threatened to shut off services in your [...] any time in the past 12 m [facility], were you homeless or living in a longterm (including now)? No 09/22/2024 EH IP Custom IPV Answer Date Recorded Do you feel UNSAFE in any of your personal relationships with your family members or any other acquaintances? No 2024 Sex and Gender Information Value Date Recorded Sex Assigned at Male 09/19/2024 11:21 AM [employer] Legal Sex Male 2:54 PM [employer] Gender Identity Male 09/19/2024 11:21 AM [employer] Sexual Orientation Not on file documented as of this encounter Last Filed Vital Signs Vital Sign Reading Time Taken Comments Blood Pressure 143/96 09/22/2024 6:55 AM [employer] Pulse 67 09/22/2024 6:55 AM [employer] Temperature 36.6 C (97.8 F) 09/22/2024 6:40 AM [employer] Respiratory Rate 14 09/22/2024 6:55 AM [employer] Oxygen Saturation 91% 09/22/2024 6:55 AM [employer] Inhaled Oxygen Concentration - - Weight 100.7 kg (222 lb) 09/11/2024 12:01 PM [employer] Height 180.3 cm (5' 11) 09/11/2024 12:01 PM [employer] Body Mass Index 30.96 09/11/2024 12:01 PM [employer] documented in this encounter Functional Status * Patient's Vision Adequate to Safely Complete Daily Activities Answer Date of Assessment Author Yes 09/22/2024 11:15 AM [employer] Natalie العراقي RN * Patient's Memory Adequate to Safely Complete Daily Activities Answer Date of Assessment Author Yes 09/22/2024 11:15 AM [employer] Natalie العراقي RN documented as of this encounter Mental Status * Patient's Judgment Adequate to Safely Complete Daily Activities Answer Entry Date Author Yes 09/22/2024 11:15 AM Natalie Alcantar RN documented in this encounter Discharge Summaries * Tian Wolf PA-C - 09/23/2024 8:52 AM CST Images from the original note were not included. HOSPITAL DISCHARGE SUMMARY Tian Wolf PA-C 09/23/2024 Patient Name: Neal Rojo Date of : 1945 Age: [age] year old Primary Physician: Pcp Elsewhere Phone: None Admitting Physician: Santiago Rosado MD Admission Date: 09/22/2024 Discharging Physician: Tian Wolf PA-C Discharge Date: 09/23/24 Discharge Diagnoses: Principal Problem: History of total ankle replacement, right Resolved Problems: * No resolved hospital problems. * Discharge Disposition: See Orders Hospital Course: Patient presents to the perioperative period after failing to manage their knee osteoarthritis. Risks, benefits, and complications were reviewed with the patient, they elected to proceed with the scheduled surgery. A total knee replacement was completed without complication. he was admitted to orthopedics where physical therapy and education was completed. Subjective: Patient is doing well today on POD #1. They have no nausea, vomiting, chest pain, lightheadedness or dizziness. They deny any numbness or paresthesias in their surgical lower extremity. They are ambulating in the hallways, tolerating oral intake, voiding and pain is controlled with oral medications. Understands the 50% weight bearing and has had several orthopedic procedures in the past so knows what to expect. Will be using his foam wedge for elevation at home. Using IS. VSS. Hgb 11.9 (14.3 pre-op). Their discharge medications were discussed at length. They understand they will be using multiple medications for pain control to be used together. We discussed their ibuprofen, hydroxyzine and Norcoprescriptions for pain control on discharge. Senokot was also reviewed. Appropriate anticoagulationtherapy was also discussed, aspirin 325mg qd. Their questions were answered, and dressing care instructions were clearly given. Objective: Blood pressure 135/83, pulse 81, temperature 36.8 ??C (98.2 ??F), temperature source Temporal, resp. rate 16, height 1.803 m (5' 11), weight 100.7 kg (222 lb), SpO2 92%. The patient is A&Ox3. Appears comfortable, sitting up at bedside. Right short leg splint is intact and well fitted, and been re-enforced for some posterior/distal bloody drainage. There is no visible drainage at this time. Toes with intact sensation and brisk capillary refill. Left calf is soft and nontender Patient Vitals for the past 8 hrs: Temp Temp src Pulse BP Resp SpO2 09/23/24 0809 -- -- 81 135/83 -- 92 % 09/23/24 0510 36.8 ??C (98.2 ??F) Temporal 76 113/68 16 94 % Lab Results Component Value Date HGB 11.9 09/23/2024 No results found for: CREAT, ISCREAT No results found for: GFR Current Discharge Medication List New Prescriptions Details aspirin EC 325 MG tablet Dose: 325 mg 325 mg, Oral, ONCE DAILY, Do not split or crush. HYDROcodone-acetaminophen 5-325 MG oral tablet Commonly known as: Saco Dose: 1 Tablet 1 Tablet, Oral, EVERY 6 HOURS NEEDED, Limit acetaminophen to 4000 mg per day from all sources. hydrOXYzine HCl 10 MG tablet Commonly known as: Atarax Dose: 10 mg 10 mg, Oral, EVERY 4 HOURS NEEDED ibuprofen 800 MG tablet Commonly known as: Motrin Dose: 800 mg 800 mg, Oral, EVERY 6 HOURS NEEDED, Administer with food. omeprazole 20 MG delayed-release tablet Commonly known as: PriLOSEC OTC Dose: 20 mg 20 mg, Oral, EVERY MORNING BEFORE BREAKFAST, Tablet should be swallowed whole; do not crush or chew. Take before meals. senna-docusate 8.6-50 MG oral tablet Commonly known as: Senokot-S Dose: 1 Tablet 1 Tablet, Oral, 2 TIMES DAILY Continued Details carbidopa-levodopa 25-100 MG oral tablet Commonly known as: Sinemet Dose: 1 Tablet 1 Tablet, 3 TIMES DAILY Colace 100 MG capsule Generic drug: docusate sodium Dose: 100 mg 100 mg, 2 TIMES DAILY DULoxetine 60 MG delayed release capsule Commonly known as: Cymbalta Dose: 60 mg 60 mg, ONCE DAILY famotidine 20 MG tablet Commonly known as: Pepcid Dose: 20 mg 20 mg, 2 TIMES DAILY NEEDED finasteride 5 MG tablet Commonly known as: Proscar Dose: 1 Tablet 1 Tablet, ONCE DAILY losartan 50 MG tablet Commonly known as: Cozaar Dose: 50 mg 50 mg, ONCE DAILY losartan-hydroCHLOROthiazide 50-12.5 MG oral tablet Commonly known as: Hyzaar Dose: 1 Tablet Start taking on: September 24, 2024 1 Tablet, Oral, ONCE DAILY melatonin 5 MG tablet Dose: 10 mg 10 mg, AT BEDTIME memantine 10 MG tablet Commonly known as: Namenda Dose: 10 mg 10 mg, 2 TIMES DAILY Metamucil 0.36 g capsule Generic drug: Psyllium Dose: 0.8 g 0.8 g, Oral, 2 TIMES DAILY Nuplazid 34 MG capsule Generic drug: pimavanserin tartrate Dose: 34 mg 34 mg, ONCE DAILY pramipexole 1.5 MG tablet Commonly known as: Mirapex Dose: 1.5 mg 1.5 mg, 3 TIMES DAILY rivastigmine 4.6 MG/24HR patch Commonly known as: Exelon Dose: 1 Patch 1 Patch, ONCE DAILY simvastatin 20 MG tablet Commonly known as: Zocor Dose: 20 mg 20 mg, Oral, AT BEDTIME You might also be taking other medications not listed above. If you have questions about any of your other medications, talk to the person who prescribed them or your Primary Care Provider. Follow Up Instructions: Sasha Hawkins PA-C Kjerstin Foss, PA-C [employer] documented in this encounter Discharge Instructions * Appointments* Susan Gomez RN - 09/22/2024 11:12 AM [employer] In the event of a concern arising after surgery, the patient was provided with the following information: During business hours, call surgeon's neonatal intensive care nurse, Chrissy Daniels at [phone]. After business hours, call the on-call provider at [phone]. [employer] documented in this encounter Medications at Time of Discharge senna-docusate (Senokot-S) 8.6-50 MG oral tablet Take 1 Tablet by mouth two times a day. 90 Tablet 09/23/2024 omeprazole (PriLOSEC OTC) 20 MG delayed-release tablet Take 1 Tablet by mouth every morning before breakfast. Tablet should be swallowed whole; do not crush or chew. Take before meals. 30 Tablet 09/23/2024 losartan-hydroCH LOROthiazide (Hyzaar) 50-12.5 MG oral tablet Take 1 Tablet by mouth one time a day. 09/24/2024 finasteride (Proscar) 5 MG tablet Take 1 Tablet by mouth one time a day. 07/11/2024 losartan (Cozaar) 50 MG tablet Take 50 mg by mouth one time a day. ibuprofen (Motrin) 800 MG tablet Take 1 Tablet by mouth every six hours as needed for Pain. Administer with food. 09/22/2024 HYDROcodone-acet aminophen (Saco) 5-325 MG oral tabletIndication s:History of total ankle replacement, right Take 1 Tablet by mouth every six hours as needed for Pain. Limit acetaminophen to 4000 mg per day from all sources. 09/22/2024 hydrOXYzine HCl (Atarax) 10 MG tablet Take 1 Tablet by mouth every four hours as needed for Itching or Other (muscle spasms). 09/22/2024 docusate sodium (Colace) 100 MG capsule Take 100 mg by mouth two times a day. melatonin 5 MG tablet Take 10 mg by mouth at bedtime. carbidopa-levodo pa (Sinemet) 25-100 MG oral tablet Take 1 Tablet by mouth three times a day. 07/24/2024 DULoxetine (Cymbalta) 60 MG delayed release capsule Take 60 mg by mouth one time a day. 08/22/2024 famotidine (Pepcid) 20 MG tablet Take 20 mg by mouth two times a day as needed. 09/05/2024 memantine (Namenda) 10 MG tablet Take 10 mg by mouth two times a day. 07/24/2024 pimavanserin tartrate (Nuplazid) 34 MG capsule Take 34 mg by mouth one time a day. 06/12/2024 pramipexole (Mirapex) 1.5 MG tablet Take 1.5 mg by mouth three times a day. 07/24/2024 rivastigmine (Exelon) 4.6 MG/24HR patch Place 1 Patch onto the skin one time a day. 07/24/2024 Psyllium (Metamucil) 0.36 g capsule Take 0.8 g by mouth two times a day. simvastatin (Zocor) 20 MG tablet Take 20 mg by mouth at bedtime. aspirin EC 325 MG tablet Take 1 Tablet by mouth one time a day for 30 days. Do not split or crush. 42 Tablet 09/22/2024 5 documented as of this encounter Ordered Prescriptions Prescription Sig Dispense Quantity Refills Last Filled Start Date End Date losartan-hydroCHL OROthiazide (Hyzaar) 50-12.5 MG oral tablet Take 1 Tablet by mouth one time a day. 09/24/2024 omeprazole (PriLOSEC OTC) 20 MG delayed-release tablet Take 1 Tablet by mouth every morning before breakfast. Tablet should be swallowed whole; do not crush or chew. Take before meals. 30 Tablet 09/23/2024 senna-docusate (Senokot-S) 8.6-50 MG oral tablet Take 1 Tablet by mouth two times a day. 90 Tablet 09/23/2024 hydrOXYzine HCl (Atarax) 10 MG tablet Take 1 Tablet by mouth every four hours as needed for Itching or Other (muscle spasms). 09/22/2024 HYDROcodone-aceta minophen (Saco) 5-325 MG oral tabletIndications :History of total ankle replacement, right Take 1 Tablet by mouth every six hours as needed for Pain. Limit acetaminophen to 4000 mg per day from all sources. 09/22/2024 ibuprofen (Motrin) 800 MG tablet Take 1 Tablet by mouth every six hours as needed for Pain. Administer with food. 09/22/2024 aspirin EC 325 MG tablet Take 1 Tablet by mouth one time a day for 30 days. Do not split or crush. 42 Tablet 09/22/2024 10/22/19 25 documented in this encounter Discharge Disposition Disposition Code Departure Means Destination Comment s Home and/or Self Half[place] documented in this encounter Progress Notes * Raiza Encarnacion, PT - 09/23/2024 11:06 AM CST PHYSICAL THERAPY ACUTE CARE DISCHARGE NOTE Subjective Patient agreeable to participate with physical therapy. Pt's and sister in law present for session. Pt states he has been practicing with the knee scooter at home, does not wish to try it while he is here but plans to use it rather than the WW at home. Has been NWB on R LE multiple times over the past year. Date of Admission: 09/22/2024 Barriers to Learning: None Cognition: Alert and Cooperative Precautions: NWB R LE - change in WB status secondary to bleeding Pain: 3/10 at rest in R ankle Objective Functional Mobility Assessment: Supine to Sit: didn't attempt - pt reports independent with bed mobility. Sit to Supine: didn't attempt Sit<>Stand: modified independence Bed<>Chair: didn't attempt Gait: Patient ambulated 15 ft with FWW and modified independence. After initial cues to maintain NWB. Gait pattern: Pt able to maintain NWB, small step length. Stairs: NT, pt does not have stairs at home. Verbally reviewed use of shower chair on stairs if pt needs to do stairs. Tests and Measures: MODIFIED RICARDO INDEX: Self-Care Assessment MBI Score: 78/ 100 Indicating: moderate dependency Score Interpretation 0-20 Total Dependence 21-60 Severe Dependence 61-90 Moderate Dependence 91-99 Slight Dependence 100 Iola Score Prediction Less than 40 Unlikely to go Home Dependent in Mobility Dependent in Self Care 60 Pivotal score where patients move from dependency to assisted independence 60-80 If living alone will probably need a number of community services to cope More than 85 Likely to be discharged to community living Independent in transfers and able to walk or use wheelchair independently Therapeutic Exercise/ Today's Treatment: The patient participated in the following exercise: supine quadricep sets, supine gluteal sets, supine hip abduction, active straight leg raise with quad set, seated long arc quad x 10 reps of each exercise, except for 3 reps of SLR due to fatigue, under skilled supervision from therapist. Education was provided regarding home exercise program for discharge home. Car Training: Patient participates in functional car tranfers training under senior mortgage underwriter's skilled assessment and intervention with SB assistance and no assistive device, able to maintain NWB. Patient demonstrated safe understanding of hip precautions throughout the duration of transition to aid in safedischarge planning. Vitals/Observations/Response to Treatment: No complaints of dizziness/lightheadedness No complaints or indications of shortness of breath Patient Education Provided: Education was provided to patient regarding rehab recommendations for safe discharge planning including but not limited to the following; icing 5-6x/day for 30 minutes at a time - ice the front and the back of the knee so that the blood that is flowing to your ankle is cooled. Elevate operated extremity on 2-3 pillows at all times during the day. Perform exercises 2x/day; get up every couple hours and use walker/knee scooter for short distances maintaining non weight bearing as ordered by surgeon. Educated and issued (as needed) medical equipment for the home to increase independence and avoid falls - Fall education provided regarding shower transfer, proper footwear, tripping hazards, proper lighting and use of walking device at all times. Patient verbalized and demonstrated good understanding Family verbalized good understanding. Assessment/Plan The patient demonstrates modified independence/SB assistance with functional mobility; safe performance and understanding of HEP, post op recommendations and precautions following TAA. The patient and their instructional coach have been instructed on safe patient handling and mobility/DME recommendations for home. The patient has met their goals and will be discharged from PT at this time. Barrier to Discharge Home: No anticipated barriers PLAN OF CARE Recommendations for Discharge: Home with caregiver / Family support Anticipated DME Needs for Discharge: patients has all necessary AD's Progress towards Goals: Goals to be met by patient discharge: 1. Patient to demonstrate transfers in and out of bed/chair/toilet/car with CGA while maintaining weight bearing restriction on surgical ankle. MET 2. Patient to ambulate 50+ feet, SBA with appropriate device and maintaining weight bearing restrictions on surgical ankle. MET for level of autonomy, but not for distance. Pt able to ambulate a distance that is functional for him at home per family, 15ft currently with WW, will be able to ambulatefurther with knee scooter, which he plans to use at home. 3. Patient to demonstrate good performance and understanding of HEP and post op recommendations to maximize healing and avoid complications . MET Interdisciplinary Communication: Treatment, goals, and plan of care discussed with nursing. Frequency of Physical Therapy Recommended: Discharge PT Total Treatment Time: 25 minutes Therapeutic Activities (22202) = 10 minutes Therapeutic Exercise (14263) = 15 minutes [employer] * Jenna Iverson PA-C - 09/23/2024 9:02 AM CST HOSPITALIST PROGRESS NOTE Subjective Patient was seen POD1 in the AM. Patient sitting up in chair. States pain has been well-controlled with medications. Denies chest pain, shortness of breath, abdominal pain, nausea, vomiting, dizziness. Is tolerating regular diet well and urinating well. Objective Vitals BP 135/83 (BP Location: Right arm, BP Patient Position: Sitting) Pulse 81 Temp 36.8 ??C (98.2 ??F) (Temporal) Resp 16 Ht 1.803 m (5' 11) Wt 100.7 kg (222 lb) SpO2 92% BMI 30.96 kg/m?? Const: NAD HEENT: Normocephalic, atraumatic CV: RRR without murmur, rubs or gallops Lung: CTAB without wheezing, rales or rhonchi Abdomen: Soft, nontender with positive bowel sounds, no rebound or guarding Neuro: Alert and orientated ??3, moves all 4 extremities Psych: Appropriate mood and affect Telemetry: N/A All lines/tubes etc other than PIV's: I reviewed and interpreted the new labs. Recent Results (from the past 24 hours) HEMOGLOBIN Result Value Ref Range HGB 11.9 (L) 13.0 - 18.0 g/dl PRE-OP LABS (09/05/24): HGB: 14.3 Na: 139 K: 3.6 Cr: 0.63 GFR: >60 Glucose: 94 I personally reviewed the new imaging studies. Recent Results (from the past 24 hours) US ANES REFERENCE Narrative There is not a diagnostic result associated with the image(s). Please refer to either the Notes/Trans, Procedures, LDA or Anesthesia tab in the patients chart for clinical information the performing provider may have documented. The actual image(s) were acquired at the on . This order was placed into the system and automatically finalized on 09/22/2024. XR C ARM FLUORO Narrative PROCEDURE: C-ARM FLUOROSCOPIC SUPPORT HISTORY: Placement. TECHNIQUE: C-arm fluoroscopic imaging. Total fluoroscopy time: 32 seconds. Number of saved fluoroscopic images: 9. COMPARISON: None. IMPRESSION: The patient has undergone a right total ankle arthroplasty. No unexpected foreign body on the final image. Please see the operative note for additional details. Electronically signed by Guevara Galdamez MD Report Date: 09/22/2024 9:53 AM EKG (09/05/24): Sinus rhythm with marked sinus arrhythmia, first-degree AV block, nonspecific ST-T wave abnormality, heart rate 66 bpm Hospital Course Eliazar Rojo is a 78 year old male with significant medical problems including HTN, HLD, Parkinson's disease, GERD, BPH, depression, who presented on 09/22/24 for RTAA. Assessment/Plan Active Hospital Problems S/P total ankle replacement, right - Orthopedic surgery primary- follow their recommendations for pain control, bowel regimen, activity, anticoagulation, wound care, and discharge instructions - Advance diet as tolerated - PT/OT to evaluate and treat Acute blood loss anemia - Postoperative, expected. No signs or symptoms of active bleed Essential hypertension - Hold FEED ADVISER losartan 100 mg QPM & hydrochlorothiazide 12.5 mg QPM due to soft BP's, resume POD2/tomorrow, discussed with patient - Hydralazine as needed for SBP greater than 180 Hyperlipidemia - Continue FEED ADVISER simvastatin QPM Parkinson's disease - Continue FEED ADVISER Sinemet 3 times daily, memantine twice daily (converted to the daily XR here for this evening), pramipexole 3 times daily, Nuplazid QAM, and Exelon patch QAM GERD - Continue FEED ADVISER Pepcid as needed BPH - Continue FEED ADVISER finasteride QPM Depression - Continue FEED ADVISER duloxetine QPM Obesity, BMI 30.96 - Patient has a BMI greater than 30. They are at an increased risk for obesity hypoventilation and poor wound healing. They will require increased use of hospital resources while inpatient. Advanced Age - Patient is of advanced age (age>65). They are at an increased risk for postop delirium. Recommend judicious use of narcotic pain medications. Rapid advancement to oral agents only. DVT Prophylaxis Measures: Maintain sequential compression device Active anticoagulants: Code Status: Full Code Discharge: Patient medically cleared for discharge home later today. Jenna Iverson PA-C Hospitalist Greater than 25 minutes spent in care of the patient including counseling of pt, coordination of care in chart review, discussion with interdisciplinary care team. Please feel free to contact me via [employer] chat or cell phone from the hours of 7 AM to 5 PM at [phone] After hours please page hospitalist on-call [employer] * Jenna Iverson PA-C - 09/22/2024 12:10 AM CST HOSPITALIST PROGRESS NOTE Subjective Patient was seen postoperatively. Patient laying comfortably in bed. Denies any significant pain atthis time. Denies chest pain, shortness of breath, abdominal pain, nausea, vomiting, dizziness. Objective Vitals BP (!) 138/92 Pulse 72 Temp 36.8 ??C (98.3 ??F) (Temporal) Resp 13 Ht 1.803 m (5' 11) Wt100.7 kg (222 lb) SpO2 91% BMI 30.96 kg/m?? Const: NAD HEENT: Normocephalic, atraumatic CV: RRR without murmur, rubs or gallops Lung: CTAB without wheezing, rales or rhonchi Abdomen: Soft, nontender with positive bowel sounds, no rebound or guarding Extremity: No LLE edema noted, LLE peripheral pulses palpable and equal, RLE/foot in cast. Neuro: Alert and orientated ??3, moves all 4 extremities Psych: Appropriate mood and affect Telemetry: N/A All lines/tubes etc other than PIV's: I reviewed and interpreted the new labs. No results found for this or any previous visit (from the past 24 hours). PRE-OP LABS (09/05/24): HGB: 14.3 Na: 139 K: 3.6 Cr: 0.63 GFR: >60 Glucose: 94 I personally reviewed the new imaging studies. Recent Results (from the past 24 hours) US ANES REFERENCE Narrative There is not a diagnostic result associated with the image(s). Please refer to either the Notes/Trans, Procedures, LDA or Anesthesia tab in the patients chart for clinical information the performing provider may have documented. The actual image(s) were acquired at the on . This order was placed into the system and automatically finalized on 09/22/2024. XR C ARM FLUORO Narrative PROCEDURE: C-ARM FLUOROSCOPIC SUPPORT HISTORY: Placement. TECHNIQUE: C-arm fluoroscopic imaging. Total fluoroscopy time: 32 seconds. Number of saved fluoroscopic images: 9. COMPARISON: None. IMPRESSION: The patient has undergone a right total ankle arthroplasty. No unexpected foreign body on the final image. Please see the operative note for additional details. Electronically signed by Guevara Galdamez MD Report Date: 09/22/2024 9:53 AM EKG (09/05/24): Sinus rhythm with marked sinus arrhythmia, first-degree AV block, nonspecific ST-T wave abnormality, heart rate 66 bpm Hospital Course Eliazar Rojo is a 78 year old male with significant medical problems including HTN, HLD, Parkinson's disease, GERD, BPH, depression, who presented on 09/22/24 for RTAA. Assessment/Plan Active Hospital Problems S/P total ankle replacement, right - Orthopedic surgery primary- follow their recommendations for pain control, bowel regimen, activity, anticoagulation, wound care, and discharge instructions - Advance diet as tolerated - PT/OT to evaluate and treat Essential hypertension - Continue FEED ADVISER losartan 100 mg QPM on POD1 with hold parameters - Hold FEED ADVISER hydrochlorothiazide 12.5 mg QPM - Hydralazine as needed for SBP greater than 180 Hyperlipidemia - Continue FEED ADVISER simvastatin QPM Parkinson's disease - Continue FEED ADVISER Sinemet 3 times daily, memantine twice daily (converted to the daily XR here for this evening), pramipexole 3 times daily, Nuplazid QAM, and Exelon patch QAM GERD - Continue FEED ADVISER Pepcid as needed BPH - Continue FEED ADVISER finasteride QPM Depression - Continue FEED ADVISER duloxetine QPM Obesity, BMI 30.96 - Patient has a BMI greater than 30. They are at an increased risk for obesity hypoventilation and poor wound healing. They will require increased use of hospital resources while inpatient. Advanced Age - Patient is of advanced age (age>65). They are at an increased risk for postop delirium. Recommend judicious use of narcotic pain medications. Rapid advancement to oral agents only. DVT Prophylaxis Measures: Maintain sequential compression device Active anticoagulants: Code Status: Full Code Discharge: Plan to discharge POD #1 Jenna Iverson PA-C Hospitalist Greater than 45 minutes spent in care of the patient including counseling of pt, coordination of care in chart review, discussion with interdisciplinary care team. Pre-op labs, pre-op EKG, pre-op testing, and H&P reviewed if available. Please feel free to contact me via [employer] or cell phone from the hours of 7 AM to 5 PM at [phone] After hours please page hospitalist on-call [employer] * Charo Zambrano RN - 09/11/2024 12:14 PM CST 09/11/24 1100 Pre-op Call Department Department AD[facility]N Pre-op Call Schedule Pre-op H&P with PCP Completed Do you take a blood thinner? No Pre-op Education Completed Guidebook Not received Pre-op Call Completed Previous Joint Surgery Yes Previous Joint Surgery Comment TKAs Urinary Health Questionaire Complete Male Questionnaire Discharge Plan Home Other Issues + antibodies, no O2 use, no falls in the last year Will you have help at home? Yes Is your bathroom on the main level? Yes Are you currently using an assistive device? Yes PT Plan Outpatient Outpatient PT Plan Reminded to schedule Length of Stay Plan reviewed;Overnight stay (patient said he was told he would stay overnight) Pot Feeder name & phone number Gissel [phone] Will your instructional coach be the one picking you up from the hospital? Yes Do you have stairs to enter your home? No Is your bedroom on the main level? Yes Do you have a tub shower or walk-in shower? Both How many blocks can you currently walk? 1-2 blocks Do you have any assistive devices at home? Yes Do you have a CPAP? No Ankle surgery only - Do you have a scooter? Yes What pain medications are you currently taking? None Pain Management Preferences doesn't like percocet Goal after surgery golf Concerns about surgery no Past post-op complications? Nausea & vomiting Are you diabetic? No Do you have a metal allergy? No Pre-op H&P date 09/05/24 Pre-op H&P location [facility] Assistive devices being used cane (in the morning and at night) What device(s) doyou have at home? cane;walker;wheelchair Reminded to bring device to hospital Yes Reminded to bring day of surgery? Yes Urinary Health Questionnaire - Male Difficulty urinating after surgery No Have you had surgery on you bladder or prostate? No During the past month or so, how often have you had the following? Had a sensation of not emptying your bladder 0 Had to urinate again less than two hours after you finished urinating? 0 Found you stopped and started again several times when you urinated? 0 Found it difficult to postpone urination? 1 A weak urinary stream? 0 Push or strain to begin urination? 0 How many times per night did you most typically get up to urinate from the time you went to bed at night until the time you got up in the morning? 2 Total Urinary Health Score - Male 3 BRAXTON/TKA CHRONIC NARCOTIC USE Use of narcotics > 90 days at time of surgery? No [employer] documented in this encounter Miscellaneous Notes * Care Plan - Parris Anguiano RN - 09/23/2024 11:20 AM CST End of Shift Summary and Plan of Care Pt's pain has been managed with scheduled ibuprofen, tylenol and PRN S[place] as well as use of ice packs and repositioning. Pt has remained non-weight bearing on surgical side. VSS on RA. Pt tolerating regular diet, voidingadequately, CMS intact, surgical dressing CDI Goals/Plan for Shift Patient/Family stated goal for shift: pain control Nursing goal for shift: safety, pain management, d/c home Plan/Interventions to meet goal: Goals per Patient Condition Fall Prevention Plan - Absence of falls. See Fall Risk flowsheet for intervention documentation. Skin Integrity - Absence of new pressure injury or skin breakdown. See Ed[facility]ard & Skin Assessmentflowsheet for intervention documentation. [employer] * Care Plan - Yeimy Lakhani RN - 09/23/2024 4:26 AM CST End of Shift Summary and Plan of Care Procedure(s): Right - Right total ankle arthroplasty WITH TENDOACHILLES LENGTHENING - Wound Class: Clean Contaminated Surgeon(s): Santiago Rosado MD Williams, Anna M PAGilbert 1 Day Post-Op Pain/Comfort: Pain well controlled with scheduled medications, ice packs, pillow support, and elevation. Assessment/Interventions: Numbness to right foot toes. Dsg reinforced and currently CDI. Voiding without issues. Activity: Ambulated to the bathroom with x1 assist. PT is following. Goals/Discharge Plan: Home with spouse after morning PT session. Goals/Plan for Shift Patient/Family stated goal for shift: Pain control Nursing goal for shift: Manage adequate pain control Plan/Interventions to meet goal: Goals per Patient Condition Fall Prevention Plan - Absence of falls. See Fall Risk flowsheet for intervention documentation. Skin Integrity - Absence of new pressure injury or skin breakdown. See Edouard & Skin Assessmentflowsheet for intervention documentation. [employer] * Care Plan - Charley Villegas RN - 09/22/2024 6:02 PM CST End of Shift Summary and Plan of Care Patient is 78 y/o male POD0 RT Ankle replacement. A&Ox4, VS wnl. Patient was able to ambulate in the room and to bathroom with FWW and assistx1 while maintaining < 50% WB status on surgical site. Patient was able to demonstrate transfers in and out of bed/ chair while maintaining weight bearing restriction on surgical ankle. SCD intact on non-surgical leg. Ice and elevation to surgical site. Goals/Plan for Shift Patient/Family stated goal for shift: Nursing goal for shift: Pain control. OOB, ambulation with 50% weight limit on surgical limb Plan/Interventions to meet goal: Goal meet for this shift. Goals per Patient Condition Fall Prevention Plan - Absence of falls. See Fall Risk flowsheet for intervention documentation. Skin Integrity - Absence of new pressure injury or skin breakdown. See Edouard & Skin Assessmentflowsheet for intervention documentation. [employer] * Rehab Evaluation - Dominique Gordon, PT - 09/22/2024 2:00 PM CST PHYSICAL THERAPY ACUTE CARE ORTHOPEDIC EVALUATION ([facility]) Subjective Patient agreeable to participate with physical therapy. The pt is resting in bedside chair. He is very pleasant upon arrival. He reports that this all began from traumatic ankle fracture one year agothat resulted in extensive infection and has had ongoing medical complications since. He is hopefulthis surgery will be better. 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 Procedures/Diagnostics Affecting Therapy: Procedure(s): Right - Right total ankle arthroplasty WITH TENDOACHILLES LENGTHENING - Wound Class: Clean Contaminated See chart. All relevant imaging, procedures, and diagnostics reviewed prior to PT evaluation. Pertinent PMHx: HTN, Parkinson's, memory changes, BPH, depression, HLD, S/P L, R TKAs in [place] Functional Level Prior to Admit: Patient independent with all mobility and ADLs Mobility/ambulation: Limited by ankle pain for recent year. Has intermittently been non weightbearing in recent year due to extensive ankle injury- has been occasionally using FWW/knee scooter. Pain: Mild Precautions: 50% weight bearing on right lower extremity. *confirm WB status on day of discharge- TCO recommended NWB due to bleeding through splint on evaluation.* Current Living Situation/Social History: Patient lives with spouse one level home with patient ableto live on main level with bed and bath and level entry into home. Durable Medical Equipment Owned: Front wheeled walker Knee scooter Shower chair/tub bench Patient's Goal(s): Finally recovering from this ankle injury Objective Cognition: Alert , Oriented, and Cooperative Functional Mobility Assessment Supine to Sit: Sit to Supine: didn't attempt Bed Modification: Sit<>Stand: standby assist, CGA, and FWW. Cues for sequencing while maintaining WB status Bed<>Chair: Gait: Patient ambulated 50 ft with FWW and CGA. Gait pattern: hop to and modified step to while maintaining <25% weight bearing during ambulation trial. Utilized scale at evaluation to indicate appropriate weight bearing understanding with goodcarry out. Pt noted to have bleeding through splint on R ankle during middle of ambulation and converted to further NWB. Returned to chair with elevation and RN aware for reinforcement. Stairs: N/T Tests and Measures: Motor/Sensation: Patient was able to elicit quad set, patient was able to elicit SLR with examination. Patient also demonstrates sensation of BLE WFL for initiation of mobility. Strength/Range of Motion Assessment; impaired to distal RLE due to surgical site Intervention: Therapeutic exercise: The patient participated in the following exercise: supine quadricep sets, supine gluteal sets, supine hip abduction, active straight leg raise with quad set, seated long arc quad- verbally reviewed with patient for carry out. Held on performing due to bleeding noted through splint during ambulation. Gait Training: The patient participates in gait training to improve functional mobility as it relates to ambulation. Therapist provided verbal cues to improve patient understanding of non weight bearing gait, and to address aforementioned impairments. The patient has fair tolerance this encounter, and required CGA assistance and FWW assistive device. Therapeutic Activity: Skilled therapeutic education, application counselor and activity modification was providedto patient for the purpose and intent of improving functional mobility and activities of daily living. Therapist provided education regarding the following topics; Utilization of scale for visual feedback on recommended weight bearing status Durable Medical Equipment- therapist provided skilled assessment and application counselor throughout encounter regarding durable medical equipment and assistive device training and appropriate sizing to accommodate patient body habitus to ensure safety of discharge planning. Vitals/Observations/Response to Treatment: Stable throughout session Patient/Caregiver Education: Education was provided to patient rehab discharge recommendation including; icing around knee joint6-8x/day for 20-30 minutes each to aid in blood cooling to distal extremity. Elevating operated extremity on 2-3 pillows at all times during the day, Perform exercises 2x/day; recommended up every hour to two with proper assistive device for no more than 10 minutes maintaining 50% WB status, properdressing/bathing techniques, educated and issued (as needed) medical equipment for the home to increase independence and avoid falls - Fall education provided regarding shower transfer, proper footwear, tripping hazards, proper lighting and use of walking device at all times. Barriers to Learning: Anxiety Evaluation, assessment, goals, and plan of care discussed with patient. The patient received written information, verbal information, and a demonstration. The opportunity to ask questions was offered. The patient verbalized and demonstrated willing understanding. Interdisciplinary Communication: Evaluation, goals, and plan of care discussed with care round team. Assessment/Plan Patient is a 78 year old male with pain, decreased ROM/Strength and impaired mobility status post right TAA. Patient was limited by pain in ankle with mobility prior to surgery. Today, the patient has fair tolerance to session and requires CGA assistance for mobility with use of FWW while maintaining <50% WB status appropriately. Patient is appropriate for skilled physical therapy services. Barriers to Discharge Home: No anticipated barriers PLAN OF CARE Recommendations for Discharge: Home with caregiver / Family support Anticipated DME Needs for Discharge: patients has all necessary AD's Goals to be met by discharge from facility Goals to be met by patient discharge: 1. Patient to demonstrate transfers in and out of bed/chair/toilet/car with CGA while maintaining weight bearing restriction on surgical ankle. 2. Patient to ambulate 50+ feet, SBA with appropriate device and maintaining weight bearing restrictions on surgical ankle. 3. Patient to demonstrate good performance and understanding of HEP and post op recommendations to maximize healing and avoid complications Rehab Potential: Fair Frequency of Physical Therapy Recommended: 1-2x follow up treatment until discharge Planned interventions may consist of any combination of the following: Therapeutic Exercise (strength/range of motion) Therapeutic Activities (transfer training/functional mobility) Gait Training Neuromuscular Re-education Manual Therapy Patient/Caregiver Education Home Exercise Program Self-Care/Home Management (ADL's) PT Total Treatment Time: 15 minutes Evaluation Moderate - Complexity (23979) Therapeutic Activities (18468) = 3 minutes [employer] * Op Note - Santiago Rosado MD - 09/22/2024 10:05 AM CST POST OPERATIVE NOTE Pre-Op Diagnosis: 1. 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 Right Achilles contracture Post-Op Diagnosis: Same Procedure(s): Right total ankle arthroplasty WITH TENDOACHILLES LENGTHENING Anesthesia Type: Spinal Surgeons and Role: * Santiago Rosado MD - Primary * Sasha Hawkins PA-C - Assisting -the PA was present throughout the entirety the case was essential for patient positioning, soft tissue traction, wound closure, splint placement, and patient transport. Estimated Blood Loss: 100 mL Specimen(s): Specimens ID Source Type Tests Collected By Collected At Frozen? 1 Ankle Right Tissue TISSUE CULTURE GRAM STAIN Santiago Rosado MD 09/22/24745 Description: RIGHT ANKLE Comment: Pre-op diagnosis: M19. 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 Item Serial No. Buckle And Button Maker Lot No. [id number] No. Used Action TALAR DOME SIZE 2 RIGHT N/A [employer] [id number] Right 1 Implanted TRAY TIBIAL JUAN TALARIS XL SIZE 2 - [id number] TRAY TIBIAL JUAN TALARIS XL SIZE 2 N/A [employer] [id number] Right 1 Implanted IMPLANT TIBIAL JUAN TALARIS SZ 2 RT - [id number] IMPLANT TIBIAL JUAN TALARIS SZ 2 RT N/A [employer] [id number] Right 1 Implanted Indications: This is a 78-year-old male who is seen in my clinic was diagnosed with severe degenerative joint disease of the right ankle due to a previous ankle fracture and subsequent infections. Hehad osteomyelitis and underwent a substantial course of IV antibiotics. He presented with substantial pain and stiffness and inability to walk. I had a long discussion with Neal regarding her options at this point. We could continue nonsurgical management we could consider surgical management. Hissurgical treatment options are a total ankle arthroplasty versus a tibiotalar arthrodesis. He also could go a tibial talocalcaneal arthrodesis. The biggest concern, however, is his infection. There is concerned that he may have continued and chronic osteomyelitis and if so any implant that we placewill likely fail. We did discuss even the possibility of a below-knee amputation. We also had a number of aspiration attempts of his ankle to determine if it was infected. Those did not show any fluid. I had a long and substantial discussion with Neal and his family. We did discuss all the risks of surgery. He may eventually end up with a below-knee amputation and he understands this. All of therisks benefits and alternatives were discussed and after discussing all the details of the operation including the postoperative rehabilitation protocol he elected to undergo the above-mentioned procedures. Procedure Summary Narrative: Patient was met in the preoperative area and the operative site, the right ankle, signed by myself.Preoperative antibiotics were held. The patient brought back to the operating room and was placed in the supine position on the operating table. All bony prominences were padded at this time. He was then prepped and draped in normal sterile fashion. A timeout was then called ensuring we are operating on the correct site and the correct patient. All staff concerns were addressed this time. Following the timeout the right lower extremity was exsanguinated using an Esmarch and a thigh tourniquet was placed 300 mmHg. An incision was made over the anterior aspect of the ankle and dissection was car ried down through the skin and subcutaneous tissue. Hemostasis was achieved. We identified the extensor retinaculum and this was very minimal tissue. There was substantial scar and adhesions throughout the whole anterior portion of the ankle. We then carried our dissection down through the floor ofthe tibialis anterior. Once we exposed the anterior tibia we carried our dissection through the medial and lateral sides of the ankle. Where it looked there was a fluid collection along the medial malleolus there was no fluid present. We debrided this area substantially. Once we exposed the entirety of the joint we took culture from deep in the joint. This was a bone and anterior soft tissue cultu re. This was sent off the back table. We then placed a guidepin in the proximal tibia. We then placed the distal tibial alignment guide. We confirmed our position via fluoroscopy and cut the distal tibia. We then placed a pin into the talus and confirmed our positioning via fluoroscopy. We then prepped the talus using appropriate talar cutting guides. At this point we placed trial equipment and is way too tight and thus we cut the tibia 2 mm higher. This allowed us to fit implants and appropriately. We then prepped the tibia and removed all trial equipment and removed any bone in the posterior ankle. We also removed any bone and debris in the medial lateral gutters. We then placed the finalimplant unfortunately the medial side was not seeding well. This seemed like there was a ridge of bone or it was awfully tight in that medial side. We had to pull out that implant and reprep the tibia. We then upsized our polyethylene and had an appropriately sized tibia. We then placed final implants and thoroughly irrigated the wound. At this point the tendo Achilles lengthening needed to be performed and this was done using a 3 triple hemisection technique. This was done using an 11 blade scalpel. We are able to get the ankle to approximately 10 to 15 degrees past neutral. We then placed vancomycin powder throughout the whole wound. We took final x-rays confirmed the position of her implants. The tibial keel had a slight halo around the implant and thus we placed crushed bone graft around that. We then closed in layered fashion using 0 Vicryl, 2-0 Vicryl, irene. The patient was then placed into a postoperative splint and was transferred off the operating tableand brought back to the postanesthesia care unit where he woke without any difficulty. All counts correct at the end the case. Postoperative plan: The patient will be 50% weightbearing on the right lower extremity for the next6 weeks. He will be seen in my clinic in 2 weeks for staple removal. At that time he will be placedinto a cam walker boot. He will be on aspirin 325 daily for DVT prophylaxis. Santiago Rosado MD All surgical medications, procedures, specimens, and imaging performed in the operating room are onthe order of the operating physician(s). [employer] * Plan of Care - Shannen Gonzalez, BRITTANY, TICKET AGENT - 09/12/2024 3:02 PM [employer] PREOPERATIVE ASSESSMENT NOTE Procedure(s): Right total ankle arthroplasty with possible irrigation and debridement Date of Surgery: 09/22/24 Post-op appointment scheduled with Sasha Hawkins PA-C at the [place] office on 10/05/24 at 10:30am Patient's goals after surgery: Golfing Patient's concerns with upcoming surgery: None H&P Patient's pre-operative history and physical with their primary care physician was reviewed. From that, the following should be noted: -Initial ankle fracture September 2023 with two subsequent surgeries in [place] complicated by infection -S/P L, R TKAs in [place] History of BPH? Yes, currently taking finasteride Antibiotic use in last 14 days? no Allergies were reviewed: NKDA Significant past medical history pertinent to surgery: HTN, Parkinson's, memory changes, BPH, depression, HLD Labs were reviewed and discussed, notably: 09/05/24 HGB: 14.3 Na: 139 K: 3.6 Cr: 0.63 GFR: >60 Glucose: 94 Hgb A1c: not obtained History of blood clots? no DVT Prophylaxis Medication Plan: ASA 81mg twice a day x4 weeks Prior to Admission Medications: Patient will continue the following medications: Carbidopa-levodopa, duloxetine, famotidine, finasteride, memantine, pramipexole, simvastatin Patient will hold the following medications: Losartan, losartan-hctz They understand all vitamin supplements and herbal medications should be stopped 7 days prior to surgery. They understand they should not use any aspirin, aspirin-containing products, or anti-inflammatory medication for 7 days prior to surgery. They are able to continue to use Tylenol as needed up until the day before surgery. Guidebook reference to medications was given to patient (pages 7 & 19). Patient's code status was reviewed and is Full Code. Patient does meet criteria for hospitalist comanagement. Post-Operative Discharge Planning Patient agrees with: Anticipated discharge on post-op day 1 Anticipated time of discharge between 9:00AM-12:00PM with their national van truck driver arriving by 8:00AM Minister Assistant: , Gissel Discharge location: Home Anticipated Home Health Services: None Pot Feeder/Family member available after discharge: Gissel (was present for this discussion) In the event of a concern arising after surgery, the patient was provided with the following information: During business hours, call surgeon's neonatal intensive care nurse, Chrissy Daniels at [phone]. After business hours, call the on-call provider at [phone]. [facility] was discussed. They were asked to first contact [facility] for continuity of care prior to going to another urgent care or ER for issues related to their surgery. They were instructed to go to the ER promptly for any medical emergency that may arise after discharge. Further education was provided to the patient on the following topics and corresponding page numbers from the guidebook were given: CHG Soap (Hibiclens, etc) Page 22 Patient will purchase soap prior to surgery. They will follow theinstructions for showering with the soap the night before surgery and the morning of surgery. Assistive Devices Page 17/51 They understand their instructional coach should bring their assistive device to their inpatient room after surgery. If they do not have one, their therapist will dispense one as needed. Dental Appointments Page 12 We discussed holding off on any routine dental work for 3 months. Following that timeframe, the patient understands they will use antibiotics one hour prior to any dental work, this includes routine cleanings (Amoxicillin 500mg - 4 tablets). Anesthesia Page 24 The anesthesiologist will discuss the anesthesia care plan with the patient the day of surgery. Incision/Dressing Care Page 33/42 We discussed the type of dressing the patient can expect after surgery as well as how to care for it, how to recognize increased drainage or bleeding, as well as bathing after surgery. They understand that bruising is normal after total joint surgery and will migrate down their extremity in the week following surgery. Post-Op Medications Page 29, 32, 39-41, 54(knee) 56(hip) We discussed the patient's individualized post-operative medication plan and each medication was explained and questions were answered. Guidebook references were given. The patient will likely discharge home with the following medications, patient specific dosing willbe determined post-operatively: ASPIRIN - they understand this medication should not be combined with other medication containing aspirin products and will replace any other aspirin they may be taking. TYLENOL - this medication helps with pain. They will take Tylenol scheduled as long as they have pain. Most patients typically need this medication for 2-3 weeks but some may need it up to 6-8 weeks.Tylenol can be taking safely with the narcotic pain medication, anti-inflammatory, and aspirin. IBUPROFEN - this is an anti-inflammatory medication that will be taken as prescribed after surgery.They understand they will not take another anti- inflammatory while taking this medication. SENOKOT - this stool softener/laxative combination pill will be used after surgery as needed for constipation. 1-2 tablets can be taken as needed. VISTARIL - this medication can help with muscle spasms. It can be taking with other pain medicationbut it can make you drowsy so we discussed using cautiously. 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 Medication Refills Page 39 They understand it is best to allow at lest 48 hours for refills and that all refills can be requested through their pharmacy or directly with their surgeon's team. I did call out that any refills needed before the weekend will need to be submitted on . Pain Control Strategies Page 29 In addition to medication to control pain, we discussed non-medication strategies to helping with pain control and swelling (RICE). Icing and elevating often is extremely beneficial, we discussed a goal of 4-5 times a day for 20-30 minutes at a time. Swelling Page 31/35 Swelling will last at least 3-4 months and take a year to be as good as it's going to get. The operative side may never completely look the same as it did prior to surgery. It is normal for the swelling to cause stiffness in the morning and increase throughout the day with the most swelling being present in the evening. Swelling does go with gravity so the lower leg/arm or foot/hand will be swollen too. If swelling increases dramatically, this typically means your are being a little too active. Constipation Page 32/40 We discussed this is very common after surgery secondary to anesthesia, inactivity, and narcotic pain medication. In addition to the prescribed medication we discussed the useof Miralax, probiotics, prunes/prune juice, fiber rich diet, and hydration. In addition, increasingactivity as they are able will be helpful. They understand if they are having significant trouble they can try magnesium citrate, a suppository, or a Fleet enema. DVT Page 43 We discussed the signs, symptoms, and prophylactic treatment for DVTs post-operatively.We also discussed the importance of recognizing and reporting these symptoms. They understand they should call the office right away to report any concern for post-operative DVT. Activity Post-Operatively Page 35, 50(hip) 55(knee) The patient understands it is best to return to activity slowly and follow the instructions given to them by their surgeon's team. Having an active recovery and increasing activity as pain allows will also help reduce complications (pain, swelling, DVT, etc). General Day of Surgery Timeline Page 23 I briefly ran through what they can expect on the day of surgery after arriving at the [facility]. Avoiding a Delayed Surgery Page 10 I gave them this reference to use between now and surgery to avoid their surgery being delayed or cancelled. Shannen Gonzalez APRN, TICKET AGENT DOMINIQUE Rounder for [facility] [employer] documented in this encounter Plan of Treatment Not on file documented as of this encounter Procedures Procedure Name Priority Date/Time Associated Diagnosis Comments HEMOGLOBIN Routine 09/23/2024 6:39 AM [employer] XR C ARM FLUORO Routine 09/22/2024 9:46 AM [employer] CULTURE, ANAEROBIC Routine 09/22/2024 7: 46 AM [employer] GRAM STAIN Routine 09/22/2024 7:46 AM [employer] TISSUE CULTURE Routine 09/22/2024 7:46 AM [employer] TOTAL ANKLE REPLACEMENT Same Day Discharge 09/22/2024 7:02 AM [employer] M19. 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 Case Notes Integra juan total ankle implant large c-arm anesthesia: general with block Special Needs same day surgery US ANES REFERENCE STAT 09/22/2024 5:0 8 AM [employer] documented in this encounter Results * (ABNORMAL) HEMOGLOBIN (09/23/2024 6:39 AM [employer]) HGB 11.9(L) 13.0 - 18.0 g/dl 09/23/2024 7:29 AM [employer] [facility] Blood BLOOD SPECIMEN / Unknown Venipuncture / Unknown 09/23/2024 6:39 AM [employer] 09/23/2024 7:25 AM [employer] Kjerstin L [place] PA-C EC HEMATOLOGY ORDERABLES Fi nal Result MARY SIDDIQUI [address] [phone] * XR C ARM FLUORO (09/22/2024 9:46 AM [employer]) Anatomical Region Laterality Modality Radiographic Camille ging 09/22/2024 7:09 AM [employer] Narrative 09/22/2024 9:53 AM [employer] PROCEDURE: C-ARM FLUOROSCOPIC SUPPORT HISTORY: Placement. TECHNIQUE: [...] MD Report Date: 09/22/2024 9:53 AM Tian JULIO-Gloria EC DIAGNOSTIC IMAGING ORDER FRANCHESCA Final Result * CULTURE, ANAEROBIC (09/22/2024 7:46 AM [employer]) Bacterial Culture, Anaerobic SEE COMMENTS 10/07/2024 2:12 PM [employer] [facility] Comment: SOURCE: ANKLE, RIGHT, RIGHT ANKLE BACTERIAL CULTURE, ANAEROBIC FINAL No growth after 14 days of incubation. Test Performed by: [facility] - [address] [address] Keyboard Instrument Repairer: Lenora Ramirez Ph.D.; CLIA# [id number] Tissue ANKLE REGION STRUCTURE / Unknown Non-blood collection / Unknown 09/22/2024 7:46 AM [employer] 09/22/2024 7:53 AM [employer] Comment:Pre-op diagnosis: M19. 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 Santiago [facility] MICROBIOLOGY - GENERAL [place] [address], [facility] [phone] * GRAM STAIN (09/22/2024 7:46 AM [employer]) Gram Stain No organisms seen 09/23/2024 9:11 AM [employer] [facility] Comment:No cells seen Tissue ANKLE REGION STRUCTURE / Unknown Non-blood collection / Unknown 09/22/2024 7:46 AM [employer] 09/22/2024 7:53 AM [employer] Comment:Pre-op diagnosis: M19. 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 Santiago CAICEDO MICROBIOLOGY - GENERAL OR DERABLES Final Result Performing Organization Address City/[facility] Co de Phone Number [facility] [address] [phone] * TISSUE CULTURE (09/22/2024 7:46 AM [employer]) Tissue Culture No Growth at 72 hours 09/25/2024 8:05 AM [employer] [facility] Tissue ANKLE REGION STRUCTURE / Unknown Non-blood collection / Unknown 09/22/2024 7:46 AM [employer] 09/22/2024 7:53 AM [employer] Comment:Pre-op diagnosis: M19. 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 Santiago CAICEDO MICROBIOLOGY - GENERAL OR DERABLES Final Result Performing Organization Address City/[facility]/ZIP Co de Phone Number [facility] [address] [phone] * US ANES REFERENCE (09/22/2024 5:08 AM [employer]) Narrative Marina, User - 09/22/2024 5:08 AM [employer] There is not a diagnostic result associated with the image(s). Please refer to either the Notes/Trans, Procedures, LDA or Anesthesia tab in the patients chart for clinical information the performing provider may have documented. The actual image(s) were acquired at the on . This order was placed into the system and automatically finalized on 09/22/2024. us Danny Lagos MD EC OS FILMS IMAGING ORDERABLES F inal Result documented in this encounter Visit Diagnoses Not on filedocumented in this encounter Administered Medications Inactive Administered Medications Medication Order MAR Action Action Date Dose Rate Site acetaminophen (Tylenol) tablet 1,000 mg 1,000 mg, Oral, ONCE, 1 dose, On Wed09/22/24 at 0530 Given 09/22/2024 6:17 AM [employer] 1,000 mg acetaminophen (Tylenol) tablet 1,000 mg 1,000 mg, Oral, 3 TIMES DAILY, First dose on Wed09/22/24 at 1400, Until Discontinued Given 09/23/2024 8:00 AM [employer] 1,000 mg Given 09/22/2024 8:18 PM [employer] 1,000 mg Given 09/22/2024 1:13 PM [employer] 1,000 mg aspirin tablet 325 mg 325 mg, Oral, ONCE DAILY, First dose on Wed09/23/24 at 0800, Until Discontinued Given 09/23/2024 8:00 AM [employer] 325 mg atorvaSTATin (Lipitor) tablet 10 mg 10 mg, Oral, EVERY EVENING, First dose on Wed09/22/24 at 2000, Until Discontinued Given 09/22/2024 8:19 PM [employer] 10 m g carbidopa-levodopa (Sinemet) 25-100 MG per tablet 1 Tablet 1 Tablet, Oral, 3 TIMES DAILY, First dose on Wed09/22/24 at 1400, Until Discontinued Given 09/23/2024 8:01 A M [employer] 1 Tablet Given 09/22/2024 8:19 PM [employer] 1 Tablet Given 09/22/2024 1:13 PM [employer] 1 Tablet ceFAZolin (ANCEF) 2 g in dextrose 4% IVPB 100 mL 2,000 mg, Intravenous, at 200 mL/hr, *EVERY 8 HOURS, 2 doses, First dose on Wed09/22/24 at 1600, Last dose on Sat /18/25 at 0000, Indication? surgical prophylaxis New Bag 09/23/2024 12:42 AM [employer] 2,000 mg 200 mL/hr New Bag 09/22/2024 4:24 PM [employer] 2,000 mg 200 mL/hr diphenhydrAMINE (Benadryl) capsule 25 mg 25 mg, Oral, EVERY 4 HOURS NEEDED, Starting on Wed09/22/24 at 1127, Until Wed09/23/24 at 1530, Itching diphenhydrAMINE (Benadryl) injection 12.5-25 mg 12.5-25 mg, IV Push, EVERY 4 HOURS NEEDED, Starting on Wed09/22/24 at 1127, Until Wed09/23/24 at 1530, Itching docusate sodium (Colace) capsule 100 mg 100 mg, Oral, 2 TIMES DAILY, First dose on Wed09/22/24 at 2000, Until Discontinued Given 09/22/2024 8:19 PM [employer] 100 mg DULoxetine (Cymbalta) capsule 60 mg 60 mg, Oral, EVERY EVENING, First dose on Wed09/22/24 at 2000, Until Discontinued Given 09/22/2024 8:16 PM [employer] 60 m g ethyl alcohol nasal 62 % swab Nasal, ONCE, 1 dose, On Wed09/22/24 at 0530 Given 09/22/2024 6:19 AM [employer] 2 Swabs ethyl alcohol nasal 62 % swab Nasal, 2 TIMES DAILY, 10 doses, First dose on Wed09/22/24 at 2100, Last dose on Wed09/27/24 at 0800 Given 09/23/2024 9:45 AM [employer] 1 Swab Given 09/22/2024 8:16 PM [employer] 1 Swab fentaNYL (Sublimaze) injection 50-100 mcg 50-100 mcg, IV Push, ONCE, 1 dose, On Wed09/22/24 at 0530 Given 09/22/2024 6:39 AM [employer] 50 mcg finasteride (Proscar) tablet 5 mg 5 mg, Oral, EVERY EVENING, First dose on Wed09/22/24 at 2000, Until Discontinued Given 09/22/2024 8:17 PM [employer] 5 mg HYDROcodone-acetaminophen (Saco) 5-325 MG per tablet 1 Tablet 1 Tablet, Oral, EVERY 4 HOURS NEEDED, Starting on Wed09/22/24 at 1127, Until Wed09/23/24 at 1530, Moderate Pain (4-6), Severe Pain (7-10) Given 09/23/2024 10:56 AM [employer] 1 Tablet ibuprofen (Motrin) tablet 800 mg 800 mg, Oral, 3 TIMES DAILY, First dose on Wed09/22/24 at 1800, Until Discontinued Given 09/23/2024 8:01 AM [employer] 800 mg Given 09/22/2024 6:40 PM [employer] 800 mg lactated ringers infusion 10-50 mL/hr, Intravenous, CONTINUOUS, Starting on Wed09/22/24 at 0530, Until Wed09/23/24 at 1530 Restarted 09/22/2024 7:02 AM [employer] New Bag 09/22/2024 5:58 AM [employer] 10 mL/hr 10 mL/hr lactated ringers infusion Intravenous, at 100 mL/hr, CONTINUOUS, Starting on Wed09/22/24 at 1130, Until Wed09/23/24 at 1530 melatonin tablet 9 mg 9 mg, Oral, AT BEDTIME, First dose on Wed09/22/24 at 2200, Until Discontinued Given 09/22/2024 8:16 PM [employer] 9 mg memantine (Namenda XR) extended release capsule 28 mg 28 mg, Oral, EVERY EVENING, First dose on Wed09/22/24 at 2000, Until Discontinued Given 09/22/2024 8:18 PM [employer] 28 mg ondansetron (Zofran ODT) disintegrating tablet 4 mg 4 mg, Oral, EVERY 6 HOURS NEEDED, Starting on Wed09/22/24 at 1127, Until Wed09/23/24 at 1530, Nausea, Vomiting ondansetron (Zofran) injection 4 mg 4 mg, IV Push, EVERY 6 HOURS NEEDED, Starting on Wed09/22/24 at 1127, Until Wed09/23/24 at 1530, Nausea, Vomiting pimavanserin tartrate (Nuplazid) capsule 34 mg 34 mg, Oral, ONCE DAILY, First dose (after last modification) on Wed09/23/24 at 0800, Until Discontinued Given 09/23/2024 8:06 AM [employer] 34 mg polyethylene glycol 3350 (Glycolax, Miralax) packet 17 g 17 g, Oral, ONCE DAILY, First dose on Wed09/23/24 at 0900, Until Discontinued pramipexole (Mirapex) tablet 1.5 mg 1.5 mg, Oral, 3 TIMES DAILY, First dose on Wed09/22/24 at 1400, Until Discontinued Given 09/23/2024 8:01 AM [employer] 1.5 mg Given 09/22/2024 8:17 PM [employer] 1.5 mg Given 09/22/2024 1:13 PM [employer] 1.5 mg pregabalin (Lyrica) capsule 75 mg 75 mg, Oral, ONCE, 1 dose, On Wed09/22/24 at 0530 Given 09/22/2024 6:17 AM [employer] 75 mg prochlorperazine (COMPAZINE) injection 5 mg 5 mg, IV Push, EVERY 6 HOURS NEEDED, Starting on Wed09/22/24 at 1127, Until 09/23/24 at 1530, Nausea, Vomiting prochlorperazine (Compazine) tablet 5 mg 5 mg, Oral, EVERY 6 HOURS NEEDED, Starting on Wed09/22/24 at 1127, Until 09/23/24 at 1530, Nausea, Vomiting senna-docusate (Senokot-S) 8.6-50 MG per tablet 1 Tablet 1 Tablet, Oral, 2 TIMES DAILY, First dose on Wed09/22/24 at 1200, Until Discontinued Given 09/23/2024 8:01 A M [employer] 1 Tablet Given 09/22/2024 8:19 PM [employer] 1 Tablet Given 09/22/2024 1:13 PM [employer] 1 Tablet sodium chloride 0.9% IV FLUSH (NS) SYRINGE 5 mL 5 mL, IV Flush, EVERY 8 HOURS, First dose on Wed09/22/24 at 1400, Until Discontinued Given 09/23/2024 12:42 AM [employer] 5 m L Given 09/22/2024 8:19 PM [employer] 5 mL Given 09/22/2024 1:14 PM [employer] 5 mL sodium chloride 0.9% IV FLUSH (NS) SYRINGE 5 mL 5 mL, IV Flush, NEEDED, Starting on Wed09/22/24 at 1127, Until 09/23/24 at 1530, Other, IV Line Flushing Given 09/22/2024 1:14 PM [employer] 5 mL vancomycin (Vancocin) injection NEEDED, Starting on Wed09/22/24 at 1002, Until Wed09/22/24 at 1010Indications:Infection Given 09/22/2024 10:02 AM [employer] 1 g Right Ankle documented in this encounter Discontinued Medications Medication Sig Discontinue Reason Start Date End Da te nystatin (Mycostatin) 077197 UNIT/ML oral suspension Take 10 mL by mouth. Patient quit taking 06/19/2024 09/19/2024 losartan-hydroCHLOROthia zide (Hyzaar) 50-12.5 MG oral tablet Take 1 Tablet by mouth one time a day. 07/11/2024 09/23/2024 documented as of this encounter Historical Medications * This list may reflect changes made after this encounter. losartan (Cozaar) 50 MG tablet Take 50 mg by mouth one time a day. finasteride (Proscar) 5 MG tablet Take 1 Tablet by mouth one time a day. 07/11/2024 melatonin 5 MG tablet Take 10 mg by mouth at bedtime. docusate sodium (Colace) 100 MG capsule Take 100 mg by mouth two times a day. simvastatin (Zocor) 20 MG tablet Take 20 mg by mouth at bedtime. rivastigmine (Exelon) 4.6 MG/24HR patch Place 1 Patch onto the skin one time a day. 07/24/2024 pramipexole (Mirapex) 1.5 MG tablet Take 1.5 mg by mouth three times a day. 07/24/2024 pimavanserin tartrate (Nuplazid) 34 MG capsule Take 34 mg by mouth one time a day. 06/12/2024 Psyllium (Metamucil) 0.36 g capsule Take 0.8 g by mouth two times a day. memantine (Namenda) 10 MG tablet Take 10 mg by mouth two times a day. 07/24/2024 famotidine (Pepcid) 20 MG tablet Take 20 mg by mouth two times a day as needed. 09/05/2024 DULoxetine (Cymbalta) 60 MG delayed release capsule Take 60 mg by mouth one time a day. 08/22/2024 carbidopa-levodop a (Sinemet) 25-100 MG oral tablet Take 1 Tablet by mouth three times a day. 07/24/2024 nystatin (Mycostatin) 223096 UNIT/ML oral suspension Take 10 mL by mouth. 06/19/2024 09/19/2024 losartan-hydroCHL OROthiazide (Hyzaar) 50-12.5 MG oral tablet Take 1 Tablet by mouth one time a day. 07/11/2024 09/23/2024 added in this encounter Active and Recently Administered Medications Times are shown in [employer]. Scheduled Medication Order 09/21/2024 09/22/2024 09/23/2024 acetaminophen (Tylenol) tablet 1,000 mg (COMPLETED) 1,000 mg, Oral, ONCE, 1 dose, On Wed09/22/24 at 0530 0617 (Given - Provider: Gabriella Tadeo RN) acetaminophen (Tylenol) tablet 1,000 mg 1,000 mg, Oral, 3 TIMES DAILY, First dose on Wed09/22/24 at 1400, Until Discontinued 131 (Given - Provider: Natalie العراقي RN)2017 (Given - Provider: Yeimy Lakhani RN) 0800 (Given - Provider: Parris Anguiano RN) aspirin tablet 325 mg 325 mg, Oral, ONCE DAILY, First dose on Wed09/23/24 at 0800, Until Discontinued 0800 (Given - Provid er: Parris Anguiano RN) atorvaSTATin (Lipitor) tablet 10 mg 10 mg, Oral, EVERY EVENING, First dose on Wed09/22/24 at 2000, Until Discontinued 2018 (Given - Provider: Yeimy Lakhani RN) carbidopa-levodopa (Sinemet) 25-100 MG per tablet 1 Tablet 1 Tablet, Oral, 3 TIMES DAILY, First dose on Wed09/22/24 at 1400, Until Discontinued 1312 (Given - Provider: Natalie العراقي RN)2018 (Given - Provider: Yeimy Lakhani RN) 08 (Given - Provider: Parris Anguiano RN) ceFAZolin (ANCEF) 2 g in dextrose 4% IVPB 100 mL (COMPLETED) 2,000 mg, Intravenous, at 200 mL/hr, ONCE, 1 dose, On Wed09/22/24 at 0530, Indication? surgical prophylaxis 0738 (New Bag - Provider: Lisa Montes APRN, MACHINE COREMAKER) ceFAZolin (ANCEF) 2 g in dextrose 4% IVPB 100 mL (COMPLETED) 2,000 mg, Intravenous, at 200 mL/hr, *EVERY 8 HOURS, 2 doses, First dose on Wed09/22/24 at 1600, Last dose on Wed09/23/24 at 0000, Indication? surgical prophylaxis 1624 (New Bag - Provider: Charley Boyd RN)1701 (Stopped - Provider: Charley Boyd RN) 0042 (New Bag - Provider: Yeimy Lakhani RN)0114 (Stopped - Provider: Yeimy Lakhani RN) docusate sodium (Colace) capsule 100 mg (CANCELED) 100 mg, Oral, 2 TIMES DAILY, First dose on Wed09/22/24 at 2000, Until Discontinued 2018 (Given - Provider: Yeimy Lakhani RN) DULoxetine (Cymbalta) capsule 60 mg 60 mg, Oral, EVERY EVENING, First dose on Wed09/22/24 at 2000, Until Discontinued 2015 (Given - Provider: Yeimy Lakhani RN) ethyl alcohol nasal 62 % swab (COMPLETED) Nasal, ONCE, 1 dose, On Wed09/22/24 at 0530 0619 (Given - Provider: Gabriella Tadeo RN) ethyl alcohol nasal 62 % swab Nasal, 2 TIMES DAILY, 10 doses, First dose on Wed09/22/24 at 2100, Last dose on Wed09/27/24 at 0800 2015 (Given - Provider: Yeimy Lakhani RN) 0945 (Given - Provider: Parris Anguiano RN) fentaNYL (Sublimaze) injection 50-100 mcg (COMPLETED) 50-100 mcg, IV Push, ONCE, 1 dose, On Wed09/22/24 at 0530 0639 (Given - Provider: Gabriella Tadeo RN - Comment: per Dr Gloria Jimenez) finasteride (Proscar) tablet 5 mg 5 mg, Oral, EVERY EVENING, First dose on Wed09/22/24 at 2000, Until Discontinued 2016 (Given - Provider: Yeimy Lakhani RN) ibuprofen (Motrin) tablet 800 mg 800 mg, Oral, 3 TIMES DAILY, First dose on Wed09/22/24 at 1800, Until Discontinued 184 (Given - Provider: Charley Boyd RN) 0801 (Given - Provider: Parris Anguiano RN) melatonin tablet 9 mg 9 mg, Oral, AT BEDTIME, First dose on Wed09/22/24 at 2200, Until Discontinued 2015 (Given - Provider: Yeimy Lakhani RN) memantine (Namenda XR) extended release capsule 28 mg 28 mg, Oral, EVERY EVENING, First dose on Wed09/22/24 at 2000, Until Discontinued 2017 (Given - Provider: Yeimy Lakhani RN) pimavanserin tartrate (Nuplazid) capsule 34 mg 34 mg, Oral, ONCE DAILY, First dose (after last modification) on Wed09/23/24 at 0800, Until Discontinued 08 (Given - Provid er: Parris Anguiano RN) polyethylene glycol 3350 (Glycolax, Miralax) packet 17 g 17 g, Oral, ONCE DAILY, First dose on Wed09/23/24 at 0900, Until Discontinued 08 (Not Given - Provider: Parris Anguiano RN - Reason: Patient/Family refused) pramipexole (Mirapex) tablet 1.5 mg 1.5 mg, Oral, 3 TIMES DAILY, First dose on Wed09/22/24 at 1400, Until Discontinued 1312 (Given - Provider: Natalie العراقي RN)2016 (Given - Provider: Yeimy Lakhani RN) 800 (Given - Provider: Parris Anguiano RN) pregabalin (Lyrica) capsule 75 mg (COMPLETED) 75 mg, Oral, ONCE, 1 dose, On Wed09/22/24 at 0530 0617 (Given - Provider: Gabriella Tadeo RN) rivastigmine (Exelon) 4.6 MG/24HR patch 1 Patch 1 Patch, Transdermal, ONCE DAILY, First dose on Wed09/23/24 at 0800, Until Discontinued 999 (Not Given - Provider: Radha Alvarado RN - Reason: Other - Comment: will take at home) ROPivacaine (Naropin) injection 75 mg (COMPLETED) 75 mg (15 mL), Infiltration, ONCE, 1 dose, On Wed09/22/24 at 0530 0642 (New Bag - Provider: Navarro Jimenez DO)0645 (New Bag - Provider: Navarro Jimenez DO) senna-docusate (Senokot-S) 8.6-50 MG per tablet 1 Tablet 1 Tablet, Oral, 2 TIMES DAILY, First dose on Wed09/22/24 at 1200, Until Discontinued 1313 (Given - Provider: Natalie العراقي RN)2019 (Given - Provider: Yeimy Lakhani, DAVID) 0801 (Given - Provider: Parris Anguiano RN) sodium chloride 0.9% IV FLUSH (NS) SYRINGE 5 mL 5 mL, IV Flush, EVERY 8 HOURS, First dose on Wed09/22/24 at 1400, Until Discontinued 1314 (Given - Provider: Natalie العراقي, DAVID)2018 (Given - Provider: Yeimy Lakhani, DAVID) 004 (Given - Provider: Yeimy Lakhani RN) Continuous Medication Order 09/21/2024 09/22/2024 09/23/2024 lactated ringers infusion 10-50 mL/hr, Intravenous, CONTINUOUS, Starting on Wed09/22/24 at 0530, Until 09/23/24 at 1530 0558 (New Bag - Provider: Gabriella Tadeo RN)0701 (Paused - Provider: Lisa Montes APRN, CRNA - Comment: Switch to gravity)0702 (Restarted - Provider: Lisa Montes APRN, TORI)0949 (Anesthesia Volume Adjusted - Provider: Lisa Montes APRN, CRNA) 1530 (Due: Stopped - Provider: Tomas Kelley) lactated ringers infusion Intravenous, at 100 mL/hr, CONTINUOUS, Starting on Wed09/22/24 at 1130, Until 09/23/24 at 1530 1307 (Not Given - Provider: Natalie العراقي RN - Reason: Contraindicated) PRN Medication Order 09/21/2024 09/22/2024 09/23/2024 aluminum-magnesium hydroxide (Maalox) oral suspension 30 mL 30 mL, Oral, EVERY 4 HOURS NEEDED, Starting on Wed09/22/24 at 1127, Until 09/23/24 at 1530, Heartburn benzocaine-menthol 15-2.6 MG Lozenge 1 Lozenge 1 Lozenge, Mouth/Throat, 4 TIMES DAILY NEEDED, Starting on Wed09/22/24 at 1107, Until 09/23/24 at 1530, sore throat bisacodyl (Dulcolax) suppository 10 mg 10 mg, Rectal, ONE TIME DAILY NEEDED, Starting on Wed09/22/24 at 1127, Until 09/23/24 at 1530, Constipation calcium carbonate (Tums) chewable tablet 500 mg 500 mg, Chew, 4 TIMES DAILY NEEDED, Starting on Wed09/22/24 at 1127, Until 09/23/24 at 1530, Heartburn diphenhydrAMINE (Benadryl) capsule 25 mg(Linked Group 1) 25 mg, Oral, EVERY 4 HOURS NEEDED, Starting on Wed09/22/24 at 1127, Until 09/23/24 at 1530, Itching diphenhydrAMINE (Benadryl) injection 12.5-25 mg(Linked Group 1) 12.5-25 mg, IV Push, EVERY 4 HOURS NEEDED, Starting on Wed09/22/24 at 1127, Until 09/23/24 at 1530, Itching famotidine (Pepcid) tablet 20 mg 20 mg, Oral, 2 TIMES DAILY NEEDED, Starting on Wed09/22/24 at 1107, Until 09/23/24 at 1530, Heartburn hydrALAZINE (Apresoline) tablet 25 mg 25 mg, Oral, 2 TIMES DAILY NEEDED, Starting on Wed09/22/24 at 1107, Until 09/23/24 at 1530, SBP > 180 HYDROcodone-acetaminophen (Saco) 5-325 MG per tablet 1 Tablet 1 Tablet, Oral, EVERY 4 HOURS NEEDED, Starting on Wed09/22/24 at 1127, Until 09/23/24 at 1530, Moderate Pain (4-6), Severe Pain (7-10) 1056 (Given - Provid er: Parris Anguiano RN) HYDROmorphone (Dilaudid) injection 0.25-0.5 mg 0.25-0.5 mg, IV Push, EVERY 2 HOURS NEEDED, Starting on Wed09/22/24 at 1127, Until 09/23/24 at 1530, Moderate Pain (4-6), Severe Pain (7-10) hydrOXYzine HCl (Atarax) tablet 10 mg 10 mg, Oral, EVERY 6 HOURS NEEDED, Starting on Wed09/22/24 at 1127, Until 09/23/24 at 1530, Other, Muscle Spasms lactated ringers BOLUS BAG 250 mL 250 mL, Intravenous, at 1,000 mL/hr, EVERY 30 MINUTES NEEDED, 2 doses, Starting on Wed09/22/24 at 1127, Until 09/23/24 at 1530 magnesium hydroxide (Milk of Magnesia) 400 MG/5ML suspension 30 mL 30 mL, Oral, ONE TIME DAILY NEEDED, Starting on Wed09/22/24 at 1127, Until 09/23/24 at 1530, Constipation naloxone (Narcan) injection 0.1 mg 0.1 mg, IV Push, EVERY 3 MINUTES NEEDED, Starting on Wed09/22/24 at 1127, Until 09/23/24 at 1530, Respiratory Depression, Other, MASSAGE OPERATOR depression ondansetron (Zofran ODT) disintegrating tablet 4 mg(Linked Group 2) 4 mg, Oral, EVERY 6 HOURS NEEDED, Starting on Wed09/22/24 at 1127, Until 09/23/24 at 1530, Nausea, Vomiting ondansetron (Zofran) injection 4 mg(Linked Group 2) 4 mg, IV Push, EVERY 6 HOURS NEEDED, Starting on Wed09/22/24 at 1127, Until 09/23/24 at 1530, Nausea, Vomiting prochlorperazine (COMPAZINE) injection 5 mg(Linked Group 3) 5 mg, IV Push, EVERY 6 HOURS NEEDED, Starting on Wed09/22/24 at 1127, Until 09/23/24 at 1530, Nausea, Vomiting prochlorperazine (Compazine) tablet 5 mg(Linked Group 3) 5 mg, Oral, EVERY 6 HOURS NEEDED, Starting on Wed09/22/24 at 1127, Until 09/23/24 at 1530, Nausea, Vomiting sodium chloride 0.9% IV FLUSH (NS) SYRINGE 5 mL 5 mL, IV Flush, NEEDED, Starting on Wed09/22/24 at 1127, Until 09/23/24 at 1530, Other, IV Line Flushing 1314 (Given - Provider: Natalie العراقي, DAVID) sodium phosphate (Fleet) 7-19 GM/118ML enema 1 Enema 1 Enema, Rectal, ONE TIME DAILY NEEDED, Starting on Wed09/22/24 at 1127, Until 09/23/24 at 1530, Constipation, For constipation refractory to SENAKOT-S or DULCOLAX vancomycin (Vancocin) injection (CANCELED) NEEDED, Starting on Wed09/22/24 at 1002, Until Wed09/22/24 at 1010 1002 (Given - Provider: Santiago Rosado MD - Comment: SPRINKLED INTO INCISION) Linked Groups Order Group 1: diphenhydrAMINE (Benadryl) capsule 25 mgJump to med 25 mg, Oral, EVERY 4 HOURS NEEDED, Starting on Wed09/22/24 at 1127, Until 09/23/24 at 1530, Itching Or diphenhydrAMINE (Benadryl) injection 12.5-25 mgJump to med 12.5-25 mg, IV Push, EVERY 4 HOURS NEEDED, Starting on Wed09/22/24 at 1127, Until 09/23/24 at 1530, Itching Group 2: ondansetron (Zofran) injection 4 mgJump to med 4 mg, IV Push, EVERY 6 HOURS NEEDED, Starting on Wed09/22/24 at 1127, Until 09/23/24 at 1530, Nausea, Vomiting Or ondansetron (Zofran ODT) disintegrating tablet 4 mgJump to med 4 mg, Oral, EVERY 6 HOURS NEEDED, Starting on Wed09/22/24 at 1127, Until 09/23/24 at 1530, Nausea, Vomiting Group 3: prochlorperazine (Compazine) tablet 5 mgJump to med 5 mg, Oral, EVERY 6 HOURS NEEDED, Starting on Wed09/22/24 at 1127, Until 09/23/24 at 1530, Nausea, Vomiting Or prochlorperazine (COMPAZINE) injection 5 mgJump to med 5 mg, IV Push, EVERY 6 HOURS NEEDED, Starting on Wed09/22/24 at 1127, Until 09/23/24 at 1530, Nausea, Vomiting documented in this encounter Orders Medications Ordered That Sina ht Not Have Been Administered Count Last Ordered Date First Ordered Date aluminum-magnesium hydroxide (Maalox) oral suspension 30 mL 2 09/22/2024 aspirin EC tablet 81 mg 1 09/22/2024 benzocaine-menthol 15-2.6 MG Lozenge 1 Lozenge 1 09/22/2024 bisacodyl (Dulcolax) suppository 10 mg 2 calcium carbonate (Tums) mary wable tablet 500 mg 2 09/22/2024 ceFAZolin (ANCEF) 2 g in dex trose 4% IVPB 100 mL 2 09/22/2024 diphenhydrAMINE (Benadryl) capsule 25 mg 2 09/22/2024 diphenhydrAMINE (Benadryl) i njection 12.5-25 mg 2 09/22/2024 diphenhydrAMINE (Benadryl) injection 25 mg 1 09/22/2024 ethyl alcohol nasal 62 % swab 1 09/22/2024 famotidine (Pepcid) tablet 20 mg 1 09/22/19 hydrALAZINE (Apresoline) tablet 25 mg 1 HYDROmorphone (Dilaudid) inj ection 0.25-0.5 mg 2 09/22/2024 HYDROmorphone (Dilaudid) injection 0.5 mg 1 09/22/2024 HYDROmorphone (Dilaudid) injection 1 mg 1 0 09/22/2024 hydrOXYzine (VISTARIL) injection 25 mg 1 hydrOXYzine HCl (Atarax) tablet 10 mg 2 labetalol (Trandate) injection 5-25 mg 1 lactated ringers BOLUS BAG 250 mL 2 025 lactated ringers infusion 2 09/22/2024 losartan (Cozaar) tablet 100 mg 1 magnesium hydroxide (Milk of Magnesia) 400 MG/5ML suspension 30 mL 2 09/22/2024 melatonin tablet 3 mg 2 09/22/2024 meperidine (Demerol) injection 12.5 mg 1 naloxone (Narcan) injection 0.1 mg 4 2024 naloxone (Narcan) injection 0.2 mg 1 2024 ondansetron (Zofran ODT) dis integrating tablet 4 mg 2 09/22/2024 ondansetron (Zofran) injection 4 mg 2 09/22 oxyCODONE (Roxicodone) immed iate release tablet 2.5-5 mg 1 09/22/2024 phenylephrine (Biorphen) 0.5 MG/5ML injection 0.05 mg 1 09/22/2024 pimavanserin tartrate (Nupla zid) capsule 34 mg 1 09/22/2024 polyethylene glycol 3350 (Gl ycolax, Miralax) packet 17 g 2 09/22/2024 prochlorperazine (COMPAZINE) injection 10 mg 1 09/22/2024 prochlorperazine (COMPAZINE) injection 5 mg 2 09/22/2024 prochlorperazine (Compazine) tablet 5 mg 2 09/22/2024 rivastigmine (Exelon) 4.6 MG /24HR patch 1 Patch 1 09/22/2024 ROPivacaine (Naropin) injection 75 mg 2 senna-docusate (Senokot-S) 8 .6-50 MG per tablet 1 Tablet 1 09/22/2024 sodium chloride 0.9% IV FLUS H (NS) SYRINGE 5 mL 2 09/22/2024 sodium phosphate (Fleet) 7-1 9 GM/118ML enema 1 Enema 2 09/22/2024 Admission Count Last Ordered Date First Orde red Date ASSIGN TO OUTPATIENT 3 09/22/2024 Discharge Count Last Ordered Date First Orde red Date DISCHARGE PATIENT 1 09/22/2024 Nursing Count Last Ordered Date First Orde red Date ACTIVITY ORDER (SPECIFY) 5 09/22/2024 DISCHARGE DIET 1 09/22/2024 DISCHARGE INSTRUCTIONS 9 09/22/2024 DRESSING (SPECIFY) 1 09/22/2024 ELEVATE EXTREMITY 1 09/22/2024 FOLLOW UP 1 09/22/2024 ICE (SPECIFY) 1 09/22/2024 NOTIFY PHYSICIAN (SPECIFY) 4 09/22/2024 POST OPERATIVE INSTRUCTIONS 2 09/22/2024 PROVIDE MEDICATION INSTRUCTIONS 6 RESTRICTIONS FOR PATIENT AFTER DISCHARGE 1 09/22/2024 SHOWER (SPECIFY) 1 09/22/2024 WEIGHT BEARING STATUS 1 09/22/2024 WOUND CARE INSTRUCTIONS 3 09/22/2024 PHARMACY COMMUNICATION Count Last Ordered Date First Ordered Date MEDICATION NOT INDICATED 2 09/22/2024 documented in this encounter Care Teams Neurology Stroke Physician Relationship Specialty Start Date End Date Elsewhere, Pcp PCP - General 09/18/24 documented as of this encounter
--- OUTSIDE RECORDS SUMMARY | 2024-11-03 08:15 | XMS_ITS | Encounter Summary ---
Author Organization [facility] Address [address], [place] [address] Care Team Providers Care Filenet P8 Developer Name Role Phone Devyn Blanc MD Primary Care Provider Reason for Visit * Reason Comments Refill finasteride (PROSCAR ) 5 MG tablet [Pharmacy Med Name: FINASTERIDE 5 MG TABLET] Encounter Details Date Type Department Care Team (Late st Contact Info) Description [facility] [address] [place] [address] Devyn Blanc MD [address] [place], [place] [phone] Refill (finasteride (PROSCAR) 5 MG tablet [Pharmacy Med Name: FINASTERIDE 5 MG TABLET]) Social History Tobacco Use Types Packs/Day Years Used Date Smoking Tobacco: Never Smokeless Tobacco: Never Alcohol Use Standard Drinks/Week Comments Yes 6 [...] as of this encounter Nursing Notes * Lisa Painter, RN - 09/29/2024 9:50 AM CST Rx sent to pharmacy per current order. 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 (changed but equivalent) -> The patient is requesting a renewal from a different pharmacy. -> PSA q12mo if used for BPH (5mg dose) -> PSA was not found within the last 5 years. Last qualifying visit: 09/05/2024 (with DEVYN BLANC) Next scheduled visit: None PSA: Not found [employer] Emb[employer]ded Refills, Reference: [id number], 09/27/2024 11:05:22 AM Mina NORTON: [facility] Refill Centralized Services - Primary Care [[id number]] ([id number]) ASSEMBLY UTILITY WORKER documented in this encounter Plan of Treatment Upcoming Encounters Date Type Department Care Team (Late st Contact Info) Description 01/08/2025 8:30 AM CDT Appointment [facility] [address] [place] [address] Maurilio Seo MD [address] [facility] [address] [place] [phone] documented as of this encounter Visit Diagnoses Not on filedocumented in this encounter Care Teams Filenet P8 Developer Relationship Specialty Start Date End Date Devyn Blanc MD [address] [place], [place] [address] PCP - General Family Practice 07/11/24 documented as of this encounter
--- OUTSIDE RECORDS SUMMARY | 2024-11-03 08:15 | XMS_ITS | Encounter Summary ---
Author Organization [facility] Address [address] [address] Phone Care Team Providers Care Teacher Public Health Name Role Phone Elsewhere, Pcp Primary Care Provider Unavailabl e Encounter Details Date Type Department Care Team (Late st Contact Info) Description 09/22/2024 5:10 AM HR CLERK Ancillary Procedure [facility] [address] [place] [phone] Social History Tobacco Use Types Packs/Day Years Used Date Smoking Tobacco: Never Smokeless Tobacco: Never Alcohol Use Standard Drinks/Week Comments Yes 7 (1 standard drink = 0.6 oz pur e alcohol) [facility] Utilities Answer Date Recorded In the [...] any time in the past 12 m [facility], were you homeless or living in a snf (including now)? No 09/22/2024 EH IP Custom IPV Answer Date Recorded Do you feel UNSAFE in any of your personal relationships with your family members or any other acquaintances? No 2024 Sex and Gender Information Value Date Recorded Sex Assigned at Male 09/19/2024 11:21 AM HR CLERK Legal Sex Male 2:54 PM HR CLERK Gender Identity Male 09/19/2024 11:21 AM HR CLERK Sexual Orientation Not on file documented as of this encounter Functional Status * Patient's Vision Adequate to Safely Complete Daily Activities Answer Date of Assessment Author Yes 09/22/2024 11:15 AM HR CLERK Natalie العراقي RN * Patient's Memory Adequate to Safely Complete Daily Activities Answer Date of Assessment Author Yes 09/22/2024 11:15 AM HR CLERK Natalie العراقي RN documented as of this encounter Mental Status * Patient's Judgment Adequate to Safely Complete Daily Activities Answer Entry Date Author Yes 09/22/2024 11:15 AM Natalie Alcantar RN documented in this encounter Plan of Treatment Not on file documented as of this encounter Procedures Procedure Name Priority Date/Time Associated Diagnosis Comments US ANES REFERENCE STAT 09/22/2024 5:0 8 AM HR CLERK documented in this encounter Results * US ANES REFERENCE (09/22/2024 5:08 AM HR CLERK) Narrative Marina, User - 09/22/2024 5:08 AM HR CLERK There is not a diagnostic result associated [...] on filedocumented in this encounter Care Teams Teacher Public Health Relationship Specialty Start Date End Date Elsewhere, Pcp PCP - General 09/18/24 documented as of this encounter
--- OUTSIDE RECORDS SUMMARY | 2024-11-03 08:15 | XMS_ITS | Encounter Summary ---
Author Organization [facility] Address [address] [address] Phone Care Team Providers Care Pack Out Operator Name Role Phone Elsewhere, Pcp Primary Care Provider Unavailabl e Encounter Details Date Type Department Care Team (Latest Contact Info) Description 09/22/2024 Travel Social History Tobacco Use Types Packs/Day Years Used Date Smoking Tobacco: Never Smokeless Tobacco: Never Alcohol Use Standard Drinks/Week Comments Yes 7 (1 standard drink = 0.6 oz pur e alcohol) [facility] Utilities Answer Date Recorded In the [...] any time in the past 12 m [facility], were you homeless or living in a prison (including now)? No 09/22/2024 EH IP Custom IPV Answer Date Recorded Do you feel UNSAFE in any of your personal relationships with your family members or any other acquaintances? No 2024 Sex and Gender Information Value Date Recorded Sex Assigned at Male 09/19/2024 11:21 AM HEALTH SPA MANAGER Legal Sex Male 2:54 PM HEALTH SPA MANAGER Gender Identity Male 09/19/2024 11:21 AM HEALTH SPA MANAGER Sexual Orientation Not on file documented as of this encounter Functional Status * Patient's Vision Adequate to Safely Complete Daily Activities Answer Date of Assessment Author Yes 09/22/2024 11:15 AM Natalie Alcantar RN * Patient's Memory Adequate to Safely Complete Daily Activities Answer Date of Assessment Author Yes 09/22/2024 11:15 AM Natalie Alcantar RN documented as of this encounter Mental Status * Patient's Judgment Adequate to Safely Complete Daily Activities Answer Entry Date Author Yes 09/22/2024 11:15 AM Natalie Alcantar RN documented in this encounter Plan of Treatment Not on file documented as of this encounter Visit Diagnoses Not on filedocumented in this encounter Care Teams Pack Out Operator Relationship Specialty Start Date End Date Elsewhere, Pcp PCP - General 09/18/24 documented as of this encounter
[2024-11-03 08:18] VITALS: BP 145/83; PULSE 82; RESP 18; TEMP 36.3; O2SAT 94; BMI 31.4
--- NOTE | 2024-11-03 09:02 | ED.BACK ---
HPI - Back Pain/Injury General Chief Complaint: Back Injury/Pain Stated Complaint: back pain Time Seen by Provider: 11/03/24 08:23 History of Present Illness HPI Narrative: This 78-year-old male comes in with pain in his right low back and buttock region. He had a ankle replacement of his right ankle about 6 or 8 weeks ago and has been using a knee liver for ambulating until a couple days ago. He states that he did fall couple times and did not have any pain from the fall itself but now has acquired pain in his right low back and buttock. This pain does not radiate down his right leg. He states that he has much worse pain when laying down and has had difficulty sleeping. He took ibuprofen without any relief. Related Data Home Medications ?Medication ?Instructions ?Recorded ?Confirmed carbidopa 25 mg-levodopa 100 mg 2 tab PO 3XD 07/19/24 07/19/24 tablet duloxetine 60 mg capsule,delayed 60 mg PO DAILY 07/19/24 07/19/24 release finasteride 5 mg tablet 5 mg PO DAILY 07/19/24 07/19/24 losartan 50 mg-hydrochlorothiazide 1 tab PO DAILY 07/19/24 07/19/24 12.5 mg tablet memantine 10 mg tablet 10 mg PO BID 07/19/24 07/19/24 pimavanserin 34 mg capsule 34 mg PO DAILY 07/19/24 07/19/24 (Nuplazid) pramipexole 1.5 mg tablet 1.5 mg PO 3XD 07/19/24 07/19/24 rivastigmine 4.6 mg/24 hour 1 patch topical DAILY 07/19/24 07/19/24 transdermal patch simvastatin 20 mg tablet 20 mg PO QPM 07/19/24 07/19/24 pimavanserin 34 mg capsule 34 mg PO DAILY 11/03/24 11/03/24 (Nuplazid) Previous Rx's ?Medication ?Instructions ?Recorded cyclobenzaprine 10 mg tablet 10 mg PO TID #15 tabs 11/03/24 hydrocodone 5 mg-acetaminophen 325 1 tab PO Q4-6H PRN pain #15 tabs 11/03/24 mg tablet ketorolac 10 mg tablet 10 mg PO Q8H 5 days #15 tabs 11/03/24 methylprednisolone 4 mg tablets in See Rx Instructions PO .COMPLEX 11/03/24 a dose pack (Medrol (Tre)) #21 ea Allergies Allergy/AdvReac Type Severity Reaction Status Date / Time No Known Drug Allergies Allergy Verified 07/19/24 13:46 Review of Systems Status of ROS: Reports: 10 or more systems reviewed and unremarkable except as noted in History and below Narrative: Constitutional: No fevers, no weight gain or loss. Eyes: No discharge. No vision changes. HENT: No congestion, no sore throat, no ear pain. Cardiovascular: No chest pain, no palpitations. Respiratory: No shortness of breath, no wheezes, no cough. Gastrointestinal: No abdominal pain, no vomiting, no diarrhea. Genitourinary: No dysuria, no hematuria. Musculoskeletal: Normal range of motion. Low back pain as described above. Skin: No rashes, no pruritis. Neurological: No dizziness, weakness, sensory change, speech change. Endo/Heme/Allergies: No bruising or bleeding. No polydipsia. Pysch: no suicidality, no anxiety, no insomnia. All other systems reviewed and are negative. 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 - Presence of artificial knee joint, bilateral (ICD-10) History of cholecystectomy ?Z90.49 - Acquired absence of other specified parts of digestive tract (ICD-10) History of tonsillectomy and adenoidectomy ?Z90.89 - Acquired absence of other organs (ICD-10) H/O hernia repair ?Z98.890 - Other specified postprocedural states (ICD-10) ?Z87.19 - Personal history of other diseases of the digestive system (ICD-10) History of incision and drainage (02/2024) ?Z98.890 - Other specified postprocedural states (ICD-10) Status post ORIF of fracture of ankle (09/15/23) ?Z98.890 - Other specified postprocedural states (ICD-10) ?Z87.81 - Personal history of (healed) traumatic fracture (ICD-10) Social History (Updated 07/19/24 @ 13:52 by Ana James ~ [facility]) Smoking Status: Never smoker Do you use any of these nicotine containing products: None Second hand tobacco smoke exposure: No How often do you have a drink containing alcohol: 4 or more times a week AUDIT-C Alcohol total score: 4 Non-prescribed substance use: denies use Exam Narrative: Exam Narrative: Constitutional: Well-developed, well-nourished, no acute distress. HEENT: Normocephalic, atraumatic. Neck: Normal range of motion. Nontender. Supple. Heart: Regular. No murmurs. Normal rate. Intact distal pulses. Lungs: Clear to auscultation. No chest discomfort. No wheezes, rhonchi, or rales. Abdomen: Normal bowel sounds. Nontender. No rebound tenderness. Genitalia: Deferred. Back: No midline tenderness. Normal range of motion. Diffuse pain in the right low back and buttock. Pain does not radiate down his leg. Extremities: Normal range of motion. No injury. Skin: Intact. No rash. Warm. No erythema or pallor. Neurologic: No altered sensation. No weakness. Alert and oriented. Psychiatric: No suicidality. No anxiety or depression. No insomnia. Nursing notes and vitals signs are reviewed. Const: Vital Signs, click to edit/add: Vital Signs - 24 hr 11/03/24 08:18 Temperature 97.4 F L Pulse Rate [Pulse Oximeter] 82 Respiratory Rate 18 Blood Pressure [Ri ght Upper Arm] 145/83 H Pulse Oximetry 94 Oxygen Delivery Me thod Room Air Course Vital Signs Vital signs: Initial Vital Signs Temperature 97.4 F L 11/03/24 08:18 Temperature Source Temporal Artery Scan 11/03/24 08:18 Pulse Rate 82 11/03/24 08:18 Respiratory Rate 18 11/03/24 08:18 Blood Pressure 145/83 H 11/03/24 08:18 Blood Pressure Mean 103 11/03/24 08:18 Blood Pressure Position Supine 11/03/24 08:18 Pulse Oximetry 94 11/03/24 08:18 Oxygen Delivery Method Room Air 11/03/24 08:18 Vital Signs Temperature 97.4 F L 11/03/24 08:18 Pulse Rate 82 11/03/24 08:18 Respiratory Rate 18 11/03/24 08:18 Blood Pressure 145/83 H 11/03/24 08:18 Pulse Oximetry 94 11/03/24 08:18 Oxygen Delivery Method Room Air 11/03/24 08:18 Temperature 97.4 F L 11/03/24 08:18 Pulse Rate 82 11/03/24 08:18 Respiratory Rate 18 11/03/24 08:18 Blood Pressure 145/83 H 11/03/24 08:18 Pulse Oximetry 94 11/03/24 08:18 Oxygen Delivery Method Room Air 11/03/24 08:18 MDM - Back Pain/Injury MDM Narrative Medical decision making narrative: This patient comes in with pain in his right buttock and low back that does not radiate down his leg. He did have a couple falls but did not have any pain immediately related to those episodes. He has been favoring his right leg as he had a surgery to replace his ankle. There is no mandate for imaging at this time. The patient did receive prescriptions for medicines to attempt to help relieve his pain. I did encourage him to follow-up with spine clinic or his primary physician for ongoing management. He did receive prescriptions for Medrol Dosepak, Flexeril, Toradol, and Petrolia. Discharge Plan Discharge Clinical Impression: Strain of lumbar region Patient Disposition: Home, Self-Care Condition: Stable Additional Instructions: Take medication as prescribed and needed. Follow up with MD for ongoing management. Consider a clinic appointment with our spine clinic. Call [phone] for appointment. Return if worsening. Prescriptions: New cyclobenzaprine 10 mg tablet 10 mg PO TID Qty: 15 0RF hydrocodone-acetaminophen 5-325 mg tablet 1 tab PO Q4-6H PRN (Reason: pain) Qty: 15 0RF ketorolac 10 mg tablet 10 mg PO Q8H 5 Days Qty: 15 0RF methylprednisolone [Medrol (Tre)] 4 mg tablets,dose pack See Rx Instructions .ROUTE .COMPLEX Qty: 21 0RF Rx Instructions: orally per package directions No Action rivastigmine 4.6 mg/24 hour patch 24 hour 1 patch topical DAILY losartan-hydrochlorothiazide 50-12.5 mg tablet 1 tab PO DAILY Nuplazid 34 mg capsule 34 mg PO DAILY finasteride 5 mg tablet 5 mg PO DAILY carbidopa-levodopa 25-100 mg tablet 2 tab PO 3XD duloxetine 60 mg capsule,delayed release(DR/EC) 60 mg PO DAILY memantine 10 mg tablet 10 mg PO BID pramipexole 1.5 mg tablet 1.5 mg PO 3XD simvastatin 20 mg tablet 20 mg PO QPM Nuplazid 34 mg capsule 34 mg PO DAILY Follow Up/Referrals: Provider,Not a Local [Primary Care Provider] - Stand Alone Forms: [employer] Info Instructions
== END 2024-11-03 09:16 | disposition home or self-care (01) ==
PROVIDERS: Emergency Provider Emergency Medicine Emergency Medical Services
DX: S39.012A Strain of muscle, fascia and tendon of lower back, initial encounter (principal)
CPT/HCPCS: 99283; 99284

== ENCOUNTER 2025-01-03 09:45 | Outpatient (RCR) | payer MEDICARE, SELFPAY | END 2025-01-03 15:43 | disposition home or self-care (01) | PROVIDERS: Visit Provider Orthopaedic Surgery | DX: Z47.89 Encounter for other orthopedic aftercare (principal); Z51.89 Encounter for other specified aftercare | CPT/HCPCS: 97016; 97110; 97140; 97161 ==

== ENCOUNTER 2025-01-22 12:30 | Emergency (ER) | payer MEDICARE, SELFPAY ==
--- OUTSIDE RECORDS SUMMARY | 2025-01-22 12:32 | XMS_ITS | Encounter Summary ---
Author Organization [employer] Address [address] [place] [address] Care Team Prov[address] Care [address] Freight Conductor Name Role Phone Devyn Blanc MD Primary Care Provider Reason for Referral * Procedure/Equipment (Routine) - Incomplete Specialty Diagnoses / Procedures Referred By Rashad t Referred To Contact Diagnoses Cough, unspecified type Procedures XR Chest 2 Views Jann Malik PA-C [address] [place] [address] Phone: tel: fax: Referral ID Status Reason Start Date Expiration Date V isits Requested Visits Authorized [id number] Incomplete 01/20/2025 04/21/2026 1 1 Reason for Visit * Reason Comments Cough Fever Encounter Details Date Type Department Care Team (Late st Contact Info) Description 01/20/2025 9:00 AM CDT Office Visit [facility] [address] [place] [address] Jann Malik PA-C [address] [place], [place] [address] Pneumonia of right lung due to infectious organism, unspecified part of lung (Primary Dx); Cough, unspecified type Social History Tobacco Use Types Packs/Day Years Used Date Smoking Tobacco: Never Smokeless Tobacco: Never Alcohol Use Standard Drinks/Week Comments Yes 6 (1 standard drink = 0.6 oz pure alcohol) Alcoholic Drinks/day: Amount:1-2 drinks; Freq:2-3/week ; PHQ-2 Answer Date Recorded PHQ-2 Score 0 11/07/2024 Sex and Gender Information Value Date Recorded [...] Sign Reading Time Taken Comments Blood Pressure 101/66 01/20/2025 8:59 AM CDT Pulse 88 01/20/2025 8:59 AM CDT Temperature 37.3 C (99.1 F) 01/20/2025 8:54 AM CDT Respiratory Rate 24 01/20/2025 8:54 AM CDT Oxygen Saturation 97% 01/20/2025 8:54 AM CDT Inhaled Oxygen Concentration - - Weight - - Height - - Body Mass Index - - documented in this encounter Patient Instructions * Patient Instructions* Jann Malik PA-C - 01/20/2025 9:00 AM CDT Start antibiotics as prescribed. Follow up in 48 hours with primary or return to urgent care to ensure improving. Repeat chest xray in 6-8 weeks with primary care to ensure infection has cleared. If high fevers, shortness of breath, chest pain, increasing weakness, increasing swelling in legs, or worse in any way, go to ER. * Attachments The following attachments cannot be sent through Care Everywhere. * Pneumonia (Estonian) documented in this encounter Progress Notes * Jann Malik PA-C - 01/20/2025 9:00 AM CDTAddended by: JANN MALIK on: 01/20/2025 03:33 PM Modules accepted: Orders * Jann Malik PA-C - 01/20/2025 9:00 AM CDT [facility] Patient: Eliazar Rojo Date of : 1945 (79 y.o.) Subjective Chief Complaint: Cough History of Present Illness: Eliazar Rojo is a 79 y.o.male with a history of Parkinson's disease who presents for evaluation of a productive cough over the past 3 days. Initially this was dry but now is more wet with mucus production. He could not sleep last night due to the coughing. He has felt feverish but not measured an actual temperature. He feels sweaty. No chest pain or shortness a breath. When he coughs, he has a pain in his right mid abdomen. He otherwise denies abdominal pain atrest. No nausea or vomiting. He does have some swelling in his lower legs but states this has his baseline including the right leg being a little bit worse ever since his ankle surgery in September. He actually feels like the swelling has gradually improved in this leg. No known illness exposure. Past Medical History, Allergies, Medications, and Social History reviewed in epic. Objective Physical Exam: Nursing note and vitals reviewed. Vital Signs: BP 101/66 (BP Location: Left Arm, BP Cuff Size: Regular) Pulse 88 Temp 37.3 ??C (99.1 ??F) (Oral) Resp (!) 24 SpO2 97% GENERAL: Alert, non toxic appearing. HEENT: Normal conjunctiva. No scleral icterus. MMM. No oropharyngeal erythema, edema or exudate. Uvula midline. Tolerating oral secretions without difficulty. Nasal congestion. NECK: Supple. No nuchal rigidity. CARDIAC: Normal rate and regular rhythm. Normal heart sounds. No murmurs, rubs, or gallops appreciated. PULMONARY: faint crackles right lower lung. Normal breath sounds. No wheezing. No tachypnea. Speaking full sentences without difficulty. Abdomen: Soft, nondistended, nontender abdomen. No rebound or guarding. NEURO: Alert and oriented. MUSCULOSKELETAL: Mild swelling to lower legs, right ankle worse than left. Patient states this has his baseline ever since his ankle surgery in September though swelling has actually been improving. Nocalf tenderness bilaterally. SKIN: Skin is warm and dry. No rashes on exposed skin. No pallor or jaundice. Laboratory Testing: CBC: WBC 18.1 o/w WNL Covid test pending Radiology: I personally reviewed the x-ray images and below is my independent interpretation. CXR pneumonia right lung Radiologist report below XR Chest 2 Views Result Date: 01/20/2025 COMPARISON: 07/26/2009. FINDINGS: Cardiac silhouette is within normal limits for size. No pulmonaryedema or pleural effusion. Question right infrahilar opacity, pneumonia not excluded. See follow-uprecommendations below. No pleural edge to suggest pneumothorax. Degenerative change in the visualized osseous structures. Six to 8-week follow-up chest x-ray is recommended after completion of treatment for patients at higher risk of underlying malignancy, particularly those > 50 years of age and smokers or former smokers. If not significantly improved on follow-up, CT would be recommended.. Assessment and Plan Eliazar Rojo is a 79 y.o. male with a history of Parkinson's who presents for evaluation of cough in the last 3 days with associated subjective fevers. Here he was afebrile, hemodynamically stable and nontoxic appearing without signs of acute respiratory distress. Faint crackles/congestion inthe right lower lung. Chest x-ray does show questionable right infrahilar opacity. Given constellation of symptoms, will go ahead and treat for community-acquired pneumonia. Prescription for azithromycin and Augmentin provided due to age and comorbidities. Advised repeat x-ray in 6-8 weeks with PCPto ensure area has resolved. His white count was elevated at 18. He does not meet septic criteria at this time. He is overall well-appearing and at this point I do not feel he needs emergent hospitalization. Patient would also like to trial outpatient management however if he is not improving in the next 48 hours on antibiotics, I instructed him to have a low threshold to be seen in the emergencyroom. He is not tachycardic or hypoxic and given concurrent cough and congestion/URI symptoms, low suspicion this would represent pulmonary embolism. He does have some baseline swelling in his lower legs which is actually improved. No pleural effusions or other signs to suggest congestive heart failure. He did complain of some right mid abdominal discomfort with coughing. This has not present otherwise and abdomen is completely benign on exam thus low suspicion for worrisome intra-abdominal process.I do not feel this needs to be worked up further today. Favoring muscle strain in the setting of his cough. If high fevers, increasing shortness a breath or weakness, new chest pain or worse in any way, advised to seek emergent evaluation. The patient was in agreement with plan of care. ADDENDUM: Was noticed by patient's that pharmacist said there was an interaction between patient's Nuplazid and the antibiotics that were prescribed. I called the pharmacist and it looks like azithromycinand nuplazid together may increase risk of QT prolongation and cardiac arrhythmias. Given this, will discontinue the azithromycin and prescribed doxycycline instead. Reviewed with patient's thathe will be on Augmentin in addition to the doxycycline and to not take the azithromycin. He should take these medications with food to avoid any side effect of nausea and also reiterated the importance of using probiotic and or yogurt. in agreement. Impression: 1. Pneumonia of right lung due to infectious organism, unspecified part of lung 2. Cough, unspecified type Patient Discharge Medications: Medications Prescribed this Visit Disp Refills Start End azithromycin (ZITHROMAX) 250 MG tablet 6 Tablet 0 01/20/2025 -- Take 2 tablets by mouth on day 1, then take 1 tablet by mouth daily on days 2-5. amoxicillin-clavulanate (AUGMENTIN) 875-125 mg per tablet 14 Tablet 0 01/20/2025 01/27/2025 Take 1 Tablet by mouth two times a day for 7 days. Take with food or milk. Oral Renewals Renewal requests to authorizing provider (Jann Malik PA-C) <b>prohibited</b> documented in this encounter Nursing Notes * Margoth Alston RN - 01/20/2025 9:00 AM CDT 3 days ago pt got a dry cough that became productive. He wasn't able to sleep last night d/t coughing. Whenever he coughs he has pain in his right side, abdomen. Patient has parkinson's so is alreadyunstable and things have been worse this morning. For the past 2 days he has been visibly diaphoretic. documented in this encounter Plan of Treatment Upcoming Encounters Date Type Department Care Team (Late st Contact Info) Description 05/10/2025 7:40 AM CDT Appointment [facility] [address] [place] [address] Maurilio Seo MD [address] [facility] [address] [place] [address] documented as of this encounter Procedures Procedure Name Priority Date/Time Associated Diagnosis Comments 2019 NOVEL CORONAVIRUS Routine 01/20/2025 9:17 AM CDT Cough, unspecified type documented in this encounter Results * XR Chest 2 Views (01/20/2025 9:36 AM CDT) Anatomical Region Laterality Modality Chest, Lung Digital Radiogra phy 01/20/2025 9:30 AM CDT Narrative 01/20/2025 9:39 AM CDT COMPARISON: 07/26/2009. FINDINGS: Cardiac silhouette is within normal limits for size. No pulmonary edema or pleural effusion. Question right infrahilar opacity, pneumonia not excluded. See follow-up recommendations below. No pleural edge to suggest pneumothorax. Degenerative change in the visualized osseous structures. Six to 8-week follow-up chest x-ray is recommended after completion of treatment for patients at higher risk of underlying malignancy, particularly those > 50 years of age and smokers or former smokers. If not significantly improved on follow-up, CT would be recommended.. Procedure Note Star Galvez MD - 01/20/2025 COMPARISON: 07/26/2009. FINDINGS: Cardiac silhouette is within normal limits for size. Nopulmonary edema or pleural effusion. Question right infrahilar opacity,pneumonia not excluded. See follow-up recommendations below. No pleuraledge to suggest pneumothorax. Degenerative change in the visualizedosseous structures. Six to 8-week follow-up chest x-ray is recommended after completion oftreatment for patients at higher risk of underlying malignancy,particularly those > 50 years of age and smokers or former smokers. If notsignificantly improved on follow-up, CT would be recommended.. us Jann Malik PA-C RAD GD Final Res ult * Extra Plasma Separator Tube (green) (01/20/2025 9:29 AM CDT) [facility] Extra Light Green Tube Drawn Specimen will be held for 5 days 01/20/2025 11:00 AM CDT [facility] Blood Venipuncture / Unknown 01/20/2025 9:29 AM CDT 01/20/2025 9:38 AM CDT Jann Malik PA-C LAB_1 Final Res ult [facility] [address] [place] [address] * 2019 Novel Coronavirus (COVID-19) - Collect in Clinic Today (01/20/2025 9:17 AM CDT) [facility] COVID-19 Interpretation Not Detected Not Detected 1:02 AM CDT [facility] Source Nasopharyngeal swab 1:02 AM CDT [facility] Swab (Source Required) Non-blood Collection / Unknown 01/20/2025 9:17 AM CDT 01/20/2025 10:13 AM CDT Alana [facility] - 01/21/2025 1:02 AM CDT Test performed by Managing Attorney Mediated Amplification. TMA has been shown to be equivalent to commercial real-time PCR tests. This test has been authorized by the FDA under Emergency Use Authorization (EUA) for use by authorized laboratories. us Jann aMlik PA-C LAB_1 Final Res ult [facility] [address] documented in this encounter Visit Diagnoses Diagnosis Pneumonia of right lung due to infectious organism, unspecified part of lung- Primary Cough, unspecified type Cough, unspecified type documented in this encounter Additional Health Concerns Infection Onset Date Last Indicated Resolved Time R/O COVID19 01/20/2025 01/20/2025 01/21/2025 1:02 AM CDT documented as of this encounter Care Teams Road Freight Conductor Relationship Specialty Start Date End Date Devyn Blanc MD [address] [place] [address] PCP - General Family Practice 07/11/24 documented as of this encounter
--- OUTSIDE RECORDS SUMMARY | 2025-01-22 12:32 | XMS_ITS | Encounter Summary ---
Author Organization [employer] Address [address], [place] [address] Care Team Providers Care [employer] Team Member Name Role Phone Devyn Blanc MD Primary Care Provider Reason for Visit * Reason Comments Symptoms Weakness Encounter Details Date Type Department Care Team (Late st Contact Info) Description 12/20/2024 Telephone [facility] [address] [place] [address] Evelin Mo, RN Symptoms (Weakness) Social History Tobacco Use Types Packs/Day Years [...] as of this encounter Nursing Notes * Evelin Mo, RN - 12/22/2024 9:13 AM CDT Spoke with Gissel and she verbalized understanding. Asked if they wanted an updated prescription sent to the pharmacy but they declined as Eliazar said he had plenty. * Maurilio Seo MD - 12/20/2024 7:35 PM CDT They can increase to 2 pills three times per day before next appointment, thanks. * Evelin Mo RN - 12/20/2024 11:33 AM CDT Patient's Gissel calling as Eliazar is continuing to have issues with weakness and his legs giving out. Currently working with PT although their focus may be related to his ankle replacement. They increased his Carbidopa/Levodopa to 1.5 tablets per dose but have not noticed any benefit. No increase in hallucinations either. Dr Seo, appointment moved up to 01/01/25. She is wondering if he can increase further to 2 tablets TID. Please advise. documented in this encounter Plan of Treatment Upcoming Encounters Date Type Department Care Team (Late st Contact Info) Description 05/10/2025 7:40 AM CDT Appointment [facility] [address] [place] [address] Maurilio Seo MD [address] [facility] [address] [place] [phone] documented as of this encounter Visit Diagnoses Not on filedocumented in this encounter Care Teams [employer] Team Member Relationship Specialty Start Date End Date Devyn Blanc MD [address] [place], [place] [phone] PCP - General Family Practice 07/11/24 documented as of this encounter
--- OUTSIDE RECORDS SUMMARY | 2025-01-22 12:32 | XMS_ITS | Encounter Summary ---
Author Organization [employer] Address [address], [place] [address] Care Team Providers Care Process Control Supervisor Name Role Phone Devyn Blanc MD Primary Care Provider Encounter Details Date Type Department Care Team (Late st Contact Info) Description 01/20/2025 9:40 AM CDT Lab Visit [facility] [address] [place] [address] Cough, unspecified type Social History Tobacco Use [...] on file documented as of this encounter Plan of Treatment Upcoming Encounters Date Type Department Care Team (Late st Contact Info) Description 05/10/2025 7:40 AM CDT Appointment [facility] [address] [place], [place] [address] Maurilio Seo MD [address] [facility] [address] [place] [phone] documented as of this encounter Procedures Procedure Name Priority Date/Time Associated Diagnosis Comments CBC AND DIFFERENTIAL PANEL STAT 01/20/2025 9:29 AM CDT Cough, unspecified type EXTRA LIGHT GREEN TUBE Routine 01/20/2025 9:29 AM CDT Cough, unspecified type COMPLETE BLOOD COUNT-W/DIFF STAT 01/20/2025 9:29 AM CDT Cough, unspecified type documented in this encounter Results * (ABNORMAL) Complete Blood Count-W/Diff (01/20/2025 9:29 AM CDT) WBC 18.1(H) 3.5 - 10.5 x10(9)/L 01/20/2025 9:41 AM [facility] RBC 5.04 4.32 - 5.72 x10(12)/L 01/20/2025 9:41 AM [facility] Hemoglobin 14.5 13.5 - 17.5 g/dL 01/20/2025 9:41 AM [facility] HCT 44.4 38.8 - 50.0 % 01/20/2025 9:41 AM [facility] MCV 88.1 80.0 - 100.0 fL 01/20/2025 9:41 AM [facility] MCH 28.8 27.6 - 33.3 pg 01/20/2025 9:41 AM [facility] MCHC 32.7 31.5 - 35.2 g/dL 01/20/2025 9:41 AM [facility] RDW 13.6 11.9 - 15.5 % 01/20/2025 9:41 AM [facility] Platelets 227 150 - 450 x10(9)/L 01/20/2025 9:41 AM [facility] Automated NRBC 0 <=0 /100 WBC 01/20/2025 9:41 AM [facility] Neutrophil Absolute 15.1(H) 1.7 - 7.0 10(9)/L 01/20/2025 9:41 AM [facility] Lymphocyte Absolute 1.2 1.0 - 4.8 10(9)/L 01/20/2025 9:41 AM [facility] Monocyte Absolute 1.6(H) 0.2 - 0.9 10(9)/L 01/20/2025 9:41 AM [facility] Eosinophil Absolute 0.1 0.0 - 0.5 10(9)/L 01/20/2025 9:41 AM [facility] Basophil Absolute 0.1 0.0 - 0.3 10(9)/L 01/20/2025 9:41 AM [facility] Immature Granulocyte % 0.6(H) 0.0 - 0.5 % 01/20/2025 9:41 AM [facility] Blood Venipuncture / Unknown 01/20/2025 9:29 AM CDT 01/20/2025 9:38 AM CDT Penny Malik PA-C LAB_1 Final Res ult Performing Organization Address [facility] de Phone Number [facility] [address] * Extra Plasma Separator Tube (green) (01/20/2025 9:29 AM CDT) Extra Light Green Tube Drawn Specimen will be held for 5 days 01/20/2025 11:00 AM [facility] Blood Venipuncture / Unknown 01/20/2025 9:29 AM CDT 01/20/2025 9:38 AM CDT Penny Malik PA-C LAB_1 Final Res ult Performing Organization Address [facility] de Phone Number [facility] [address] documented in this encounter Visit Diagnoses Diagnosis Cough, unspecified type documented in this encounter Additional Health Concerns Infection Onset Date Last Indicated Resolved Time R/O COVID19 01/20/2025 01/20/2025 01/21/2025 1:02 AM CDT documented as of this encounter Care Teams Process Control Supervisor Relationship Specialty Start Date End Date Devyn Blanc MD [address] [facility] [place] [address] PCP - General Family Practice 07/11/24 documented as of this encounter
--- OUTSIDE RECORDS SUMMARY | 2025-01-22 12:32 | XMS_ITS | Clinical Summary ---
Author Organization [facility] Address [address] [place] [address] Care Team Providers Care Photovoltaic Testing Technician Name Role Phone Devyn Blanc MD Primary Care Provider Source Comments You are receiving this document as you are listed as the primary care provider,follow-up provider, or the patient has been referred to you for consultation.This is in compliance with the Medicare andMedicaid EHR Incentive Program,which states Providers who transition their patient to another setting of careor provider of care or refers their patient to another provider of care shouldprovide summary care record for each transition of care or referral. [facility] Allergies No known active allergies Medications psyllium (METAMUCIL) 0.36 g CAPS Take 0.8 g by mouth. Active losartan-hydr ochlorothiazi de (HYZAAR) 50-12.5 MG tablet Take 1 Tablet by mouth daily. 90 Tablet 3 07/11/20 24 Active rivastigmine (EXELON) 4.6 MG/24HR patch Apply 1 Patch to skin daily. 90 Patch 3 07/24/20 24 Active pramipexole (MIRAPEX) 1.5 MG tablet Take 1 Tablet (1.5 mg) by mouth three times a day. 90 Tablet 3 07/24/20 24 Active DULoxetine (CYMBALTA) 60 MG capsule Take 1 Capsule (60 mg) by mouth daily. 90 Capsule 3 08/22/20 24 Active simvastatin (ZOCOR) 20 MG tablet Take 1 Tablet (20 mg) by mouth every evening. 90 Tablet 3 08/22/20 Active losartan (COZAAR) 50 MG tablet Take 1 Tablet (50 mg) by mouth daily. with losartan-hydro chlorothiiazid e 50-12.5 mg tablet. 90 Tablet 3 08/22/20 24 025 Active nystatin (MYCOSTATIN) 753123 UNIT/ML suspension Take 10 mL by mouth. 06/19/20 Active famotidine (PEPCID) 20 MG tablet Take 1 Tablet (20 mg) by mouth two times daily as needed for Heartburn. 60 Tablet 1 09/05/20 Active Additional Information Patient not taking.Reported on 01/20/2025 finasteride (PROSCAR) 5 MG tablet TAKE 1 TABLET BY MOUTH ONCE DAILY 90 Tablet 2 09/29/19 Active ibuprofen (MOTRIN) 800 MG tablet Take 1 Tablet (800 mg) by mouth three times a day as needed. 09/14/19 25 Active melatonin 5 MG tablet Take 2 Tablets (10 mg) by mouth. Active HYDROmorphone (DILAUDID) 2 MG tablet Take 1 Tablet (2 mg) by mouth every 3 hours as needed for Pain. 20 Tablet 11/21/19 Active NUPLAZID 34 MG Take 1 Capsule (34 mg) by mouth daily. 90 Capsule 3 01/02/20 25 Active memantine (NAMENDA) 10 MG tablet Take 1 Tablet (10 mg) by mouth two times a day. 180 Tablet 3 01/02/20 25 Active carbidopa-lev odopa (SINEMET) 25-100 MG tablet Take 1 Tablet by mouth three times a day. 270 Tablet 3 01/02/20 25 Active amoxicillin-c lavulanate (AUGMENTIN) 875-125 mg per tablet Take 1 Tablet by mouth two times a day for 7 days. Take with food or milk. 14 Tablet 01/21/20 25 025 Active doxycycline hyclate (VIBRA-TABS) 100 MG tablet Take 1 Tablet (100 mg) by mouth two times a day for 7 days. 14 Tablet 01/21/20 25 025 Active carbidopa-lev odopa (SINEMET) 25-100 MG tablet Take 1 Tablet by mouth three times a day. 270 Tablet 3 07/24/20 24 025 Discontinued(*M ed change OR same med OR reorder, new dose/directions ) NUPLAZID 34 MG Take 1 Capsule (34 mg) by mouth daily. 90 Capsule 3 07/24/20 025 Discontinued(*M ed change OR same med OR reorder, new dose/directions ) memantine (NAMENDA) 10 MG tablet Take 1 Tablet (10 mg) by mouth two times a day. 180 Tablet 3 07/24/20 025 Discontinued(*M ed change OR same med OR reorder, new dose/directions ) aspirin 325 MG tablet Take 1 Tablet (325 mg) by mouth daily. 09/14/19 025 Discontinued HYDROcodone-a cetaminophen (NORCO) 5-325 MG tablet Take 1 Tablet by mouth. 09/14/19 025 Discontinued hydrOXYzine HCl (ATARAX) 10 MG tablet Take 1 Tablet (10 mg) by mouth three times a day as needed. 09/14/19 025 Discontinued omeprazole (PRILOSEC) 20 MG capsule Take 1 Capsule (20 mg) by mouth daily. 09/23/19 025 Discontinued sulfamethoxaz ole-trimethop rim (BACTRIM DS) 800-160 MG tablet Take 1 Tablet by mouth two times a day. 09/22/19 025 Discontinued Docusate Sodium (DSS) 100 MG Take 1 Capsule (100 mg) by mouth. 025 Discontinued sennosides-do cusate sodium (SENOKOT S) 8.6-50 MG per tablet Take 1 Tablet by mouth two times a day. 09/23/19 025 Discontinued cyclobenzapri ne (FLEXERIL) 10 MG tablet Take 1 Tablet (10 mg) by mouth three times a day. 11/03/19 025 Discontinued methylPREDNIS olone (MEDROL 21 TABLET DOSEPACK) 4 MG tablet Take by mouth. 11/03/19 025 Discontinued azithromycin (ZITHROMAX) 250 MG tablet Take 2 tablets by mouth on day 1, then take 1 tablet by mouth daily on days 2-5. 6 Tablet 01/21/20 25 025 Discontinued Active Problems Problem Noted Date Diagnosed Date [...] ; Ca Colon Screening Olecranon bursitis 07/05/2008 Overview (04/28/2017): LW Modifier: S/P I+D, right LW Onset: 2003 ; Bursitis Olecranon Other specified disorders of kidney and ureter 07/05/2008 07/11/2024 Overview (04/28/2017): LW Modifier: S/p surgery, right LW Onset: age 4 ; Kidney & Ureter Disorder NOS Esophageal reflux 02/10/2003 07/11/2024 Overview (04/28/2017): Gastroesophageal Reflux Disease Lumbago 02/10/2003 07/11/2024 Overview (04/28/2017): Pain Low Back Encounters Date Type Department Care Team Description 01/20/2025 9:40 AM CDT Lab Visit [facility] [address] [place] [phone] Cough, unspecified type 01/20/2025 9:35 AM CDT Ancillary Procedure [facility] [address] [facility] [address] [place] [phone] Penny Malik PA-C Cough, unspecified type 01/20/2025 9:00 AM CDT Office Visit [facility] [address] [place] [phone] Penny Malik PA-C Pneumonia of right lung due to infectious organism, unspecified part of lung (Primary Dx); Cough, unspecified type 01/01/2025 11:00 AM CDT Office Visit [facility] [address] [place] [address] Maurilio Seo MD Parkinson's disease, unspecified whether dyskinesia present, unspecified whether manifestations fluctuate (HRC) (Primary Dx) 12/20/2024 Telephone [facility] [address] [place] [address] Evelin Mo RN Symptoms (Weakness) 11/30/2024 8:10 AM CDT E-Visit [facility] [address] [place] [address] Maurilio Seo MD Chief Comp: QUESTIONS, GENERAL 11/17/2024 11:30 AM CDT E-Visit [facility] [address] [place] [address] Devyn Blanc MD Chief Comp: RESULTS, TEST 11/15/2024 [facility] [address] [place] [address] Devyn Blanc MD 11/14/2024 3:30 PM CDT Ancillary Procedure [facility] [address] [address] [place] [address] [place] [phone] Devyn Blanc MD Acute right-sided low back pain without sciatica 11/07/2024 11:30 AM BLUNGER Office Visit [facility] [address] [place] [address] Devyn Blanc MD Encounter for Medicare annual wellness exam (Primary Dx); Acute right-sided low back pain without sciatica from Last 3 Months Immunizations Immunization Administration Dates Next Due Flu Vac Preserv Free (3+yrs) 06/15/2012, 08/13/2011,08/21/2010,2007 Influenza IIV4 (Quadrivalent ) Fluzone, 65+ Yrs 10/02/2023 PCV20 (Fgckoty25) 09/05/2024 PPSV23 (Pneumovax) 06/15/2012 TDAP (ADACEL) 12/02/2010 [...] CDT Inhaled Oxygen Concentration - - Weight 105.2 kg (232 lb) 01/01/2025 11:08 AM CDT shoes on Height 178.8 cm (5' 10.39) 11/07/2024 11:26 AM BLUNGER Body Mass Index 32.92 11/07/2024 11:26 AM BLUNGER Plan of Treatment Upcoming Encounters Date Type Department Care Team (Late st Contact Info) Description 05/10/2025 7:40 AM CDT Appointment [facility] [place] [address] Maurilio Seo MD [address] [facility] [address] [place] [phone] Health Maintenance Due Date Last Done Comments Hep C Screening (Preventive Services) 1945 Zoster/Shingles Vaccine (1 of 2) 1996 Colonoscopy 05/13/2003 05/12/2003 DTaP/Tdap/Td Vaccine (2 - Tdap) 12/02/2020 12/02/2010, 06/04/2003 RSV Vaccine (1 - 1-dose 75+ series) 2021 COVID-19 Vaccine ( - season) 2024 Influenza Vaccine (Season Ended) 2025 10/02/2023, 06/15/2012, 08/13/2011, Additional history exists Medicare Annual Wellness Visit 11/07/2025 11/07/2024, 09/06/2023 (Completed) Cholesterol Discontinued 06/13/2012, 03/2011, 08/21/2010, Additional history exists Pneumococcal Vaccine 50+ Yrs Completed 09/05/2024, 06/15/2012 HepA Vaccine Aged Out No longer eligi ble based on patient's age to complete this topic HepB Vaccine Aged Out No longer eligi ble based on patient's age to complete this topic Hib Vaccine Aged Out No longer eligi ble based on patient's age to complete this topic IPV (Polio) Vaccine Aged Out No longe r eligible based on patient's age to complete this topic MCV4 Vaccine Aged Out No longer eligi ble based on patient's age to complete this topic Meningococcal B Vaccine Aged Out No l onger eligible based on patient's age to complete this topic Procedures Procedure Name Priority Date/Time Associated Diagnosis Comments XR CHEST 2 VIEWS STAT 01/20/2025 9:36 AM CDT Cough, unspecified type COMPLETE BLOOD COUNT-W/DIFF STAT 01/20/2025 9:29 AM CDT Cough, unspecified type EXTRA LIGHT GREEN TUBE Routine 01/20/2025 9:29 AM CDT Cough, unspecified type CBC AND DIFFERENTIAL PANEL STAT 01/20/2025 9:29 AM CDT Cough, unspecified type 2019 NOVEL CORONAVIRUS Routine 01/20/2025 9:17 AM CDT Cough, unspecified type MR LUMBAR SPINE WO IV CONT Routine 11/14/2024 3:50 PM CDT Acute right-sided low back pain without sciatica LIPID PANEL & DIRECT LDL (IF NEEDED) Routine 06/13/2012 8:11 AM CDT Other and unspecified hyperlipidemia (HRC) ENDOSCOPY, COLON, SCREENING/DIAGNOSTIC Routine 05/12/2003 3:14 PM CDT from Last 3 Months or Most Recently Relevant to Health Maintenance Results * XR Chest 2 Views (01/20/2025 [...] on follow-up, CT would be recommended.. us Penny Malik PA-C RAD GD Final Res ult * Extra Plasma Separator Tube (green) (01/20/2025 9:29 AM CDT) [facility] Extra Light Green Tube Drawn Specimen will be held for 5 days 01/20/2025 11:00 AM T [facility] Blood Venipuncture / Unknown 01/20/2025 9:29 AM CDT 01/20/2025 9:38 AM CDT us Penny Malik PA-C LAB_1 Final Res ult [facility] [address] [place] [address] * (ABNORMAL) Complete Blood Count-W/Diff (01/20/2025 9:29 AM CDT) [facility] WBC 18.1(H) 3.5 - 10.5 x10(9)/L 01/20/2025 9:41 AM [facility] RBC 5.04 4.32 - 5.72 x10(12)/L 01/20/2025 9:41 AM [facility] Hemoglobin 14.5 13.5 - 17.5 g/dL 01/20/2025 9:41 AM [facility] HCT 44.4 38.8 - 50.0 % 01/20/2025 9:41 AM [facility] MCV 88.1 80.0 - 100.0 fL 01/20/2025 9:41 AM [facility] MCH 28.8 27.6 - 33.3 pg 01/20/2025 9:41 AM [facility] MCHC 32.7 31.5 - 35.2 g/dL 01/20/2025 9:41 AM [facility] RDW 13.6 11.9 - 15.5 % 01/20/2025 9:41 AM [facility] Platelets 227 150 - 450 x10(9)/L 01/20/2025 9:41 AM [facility] Automated NRBC 0 <=0 /100 WBC 01/20/2025 9:41 AM [facility] Neutrophil Absolute 15.1(H) 1.7 - 7.0 10(9)/L 01/20/2025 9:41 AM [facility] Lymphocyte Absolute 1.2 1.0 - 4.8 10(9)/L 01/20/2025 9:41 AM [facility] Monocyte Absolute 1.6(H) 0.2 - 0.9 10(9)/L 01/20/2025 9:41 AM [facility] Eosinophil Absolute 0.1 0.0 - 0.5 10(9)/L 01/20/2025 9:41 AM [facility] Basophil Absolute 0.1 0.0 - 0.3 10(9)/L 01/20/2025 9:41 AM [facility] Immature Granulocyte % 0.6(H) 0.0 - 0.5 % 01/20/2025 9:41 AM [facility] Blood Venipuncture / Unknown 01/20/2025 9:29 AM CDT 01/20/2025 9:38 AM CDT us Penny Malik PA-C LAB_1 Final Res ult [facility] [address] [place] [address], [facility] * 2019 Novel Coronavirus (COVID-19) - Collect in Clinic Today (01/20/2025 9:17 AM CDT) [facility] Signature COVID-19 Interpretation Not Detected Not Detected 1:02 AM CDT [facility] Source Nasopharyngeal swab 1:02 AM CDT [facility] Swab (Source Required) Non-blood Collection / Unknown 01/20/2025 9:17 AM CDT 01/20/2025 10:13 AM CDT Narrative [facility] - 01/21/2025 1:02 AM CDT Test performed by Non Profit Director Mediated Amplification. TMA has been shown to be equivalent to commercial real-time PCR tests. This test has been authorized by the FDA under Emergency Use Authorization (EUA) for use by authorized laboratories. Penny Malik PA-C LAB_1 Final Res ult [facility] [address] * MR Lumbar Spine WO IV Cont (11/14/2024 3:50 PM CDT) Anatomical Region Laterality Modality Spine, L-Spine, Skeletal, MSK Ma gnetic Resonance 11/14/2024 3:12 PM CDT Impressions 11/15/2024 4:43 PM CDT 1. Comparison to examination of 03/19/2004. 2. Progression of right paracentral osteophyte at L4-5 which displaces the traversing right L5 nerve root. Correlate with right L5 radicular symptoms. 3. New severe left neural foraminal stenosis at L2-3. Correlate with left L2 radicular symptoms. 4. Progression of additional degenerative changes as detailed above. 5. Interval development of chronic compression fractures at T11 and L1 with mild loss of vertebral body height. Comment: Many lumbar spine MRI findings are so common that while we may have reported their presence, they must be interpreted with caution and in the context of the clinical situation. The frequency of these findings in adults WITHOUT low back pain increases with age and are as follows: disk degeneration (37-96%), disk height loss (24-84%), disk bulge (30-84%), disk protrusion (29-43%), annular fissure (19- 29%), and facet degeneration (4-83%). Frequency percentages adapted from Rajinder W, Rivera PH, Elkin B, et al. AJNR AM J Neuroradiol 2015:36:811-16. Narrative 11/15/2024 4:43 PM CDT INDICATION: Low back pain on right, history of multiple discectomies. Medication not helping. TECHNIQUE: Routine non-contrast MRI of the lumbar spine. COMPARISON: 03/19/2004. FINDINGS: Five lumbar-type vertebral bodies. The conus medullaris terminates at the level of the L1 vertebral body. Normal cord signal. Stable scattered hemangiomas. Interval development of mild chronic compression of the superior endplates of T11 and L1. Progression of endplate degeneration with disc space narrowing at L2-3, L4-5, and L5-S1. Normal alignment. 2 cm right renal cyst. Axial: T12-L1: Mild disc bulge. Mild effacement of ventral thecal sac. No substantial neural foraminal narrowing. L1-2: Broad-based disc bulge. Progression of now mild spinal canal narrowing. Progression of now mild bilateral neural foraminal narrowing. L2-3: Posterior osteophytic ridging with broad-based disc bulge. Slight progression of spinal canal stenosis which is mild on today's study. Mild bilateral facet degeneration. New left foraminal disc protrusion and combination with progression of osteophytic ridging and facet degeneration results in progression of now severe left neural foraminal stenosis. Correlate with left L2 radicular symptoms. L3-4: Progression of broad-based disc bulge. Mild spinal canal narrowing. Progression of now moderate to severe bilateral neural foraminal stenosis. L4-5: Interval increase in the size of the right paracentral osteophyte which effaces the right lateral recess and displaces the traversing right L5 nerve root. Correlate with right L5 radicular symptoms. Mild spinal canal narrowing. Moderate facet degeneration. Moderate bilateral neural foraminal narrowing. L5-S1: No neural foraminal or spinal canal narrowing. No substantial change. Procedure Note Salvador Brantley MD - 11/15/2024 INDICATION: Low back pain on right, history of multiple discectomies.Medication not helping. TECHNIQUE: Routine non-contrast MRI of the lumbar spine. COMPARISON: 03/19/2004. FINDINGS: Five lumbar-type vertebral bodies. The conus medullaristerminates at the level of the L1 vertebral body. Normal cord signal.Stable scattered hemangiomas. Interval development of mild chroniccompression of the superior endplates of T11 and L1. Progression ofendplate degeneration with disc space narrowing at L2-3, L4-5, and L5-S1.Normal alignment. 2 cm right renal cyst. Axial: T12-L1: Mild disc bulge. Mild effacement of ventral thecal sac. Nosubstantial neural foraminal narrowing. L1-2: Broad-based disc bulge. Progression of now mild spinal canalnarrowing. Progression of now mild bilateral neural foraminal narrowing. L2-3: Posterior osteophytic ridging with broad-based disc bulge. Slightprogression of spinal canal stenosis which is mild on today's study. Mildbilateral facet degeneration. New left foraminal disc protrusion andcombination with progression of osteophytic ridging and facet degenerationresults in progression of now severe left neural foraminal stenosis.Correlate with left L2 radicular symptoms. L3-4: Progression of broad-based disc bulge. Mild spinal canal narrowing.Progression of now moderate to severe bilateral neural foraminal stenosis. L4-5: Interval increase in the size of the right paracentral osteophytewhich effaces the right lateral recess and displaces the traversing rightL5 nerve root. Correlate with right L5 radicular symptoms. Mild spinalcanal narrowing. Moderate facet degeneration. Moderate bilateral neuralforaminal narrowing. L5-S1: No neural foraminal or spinal canal narrowing. No substantialchange. IMPRESSION 1. Comparison to examination of 03/19/2004. 2. Progression of right paracentral osteophyte at L4-5 which displaces thetraversing right L5 nerve root. Correlate with right L5 radicularsymptoms. 3. New severe left neural foraminal stenosis at L2-3. Correlate with leftL2 radicular symptoms. 4. Progression of additional degenerative changes as detailed above. 5. Interval development of chronic compression fractures at T11 and L1with mild loss of vertebral body height. Comment: Many lumbar spine MRI findings are so common that while we mayhave reported their presence, they must be interpreted with caution and inthe context of the clinical situation. The frequency of these findings inadults WITHOUT low back pain increases with age and are as follows: diskdegeneration (37-96%), disk height loss (24-84%), disk bulge (30-84%),disk protrusion (29-43%), annular fissure (19- 29%), and facet degeneration(4-83%). Frequency percentages adapted from Rajinder W, Rivera PH, Elkin Davis, tylorl. AJNR AM J Neuroradiol 2015:36:811-16. Devyn Blanc MD RAD MRI Final Result * (ABNORMAL) Lipid Panel and Direct LDL(If [...] - 06/13/2012 5:24 PM CDT Performed at [facility], [address] [place] [address] us Bienvenido Zarate MD LAB_1 Final Resul t HP CONVERSION * Endoscopy, colon, diagnostic (05/12/2003 3:14 PM CDT) Anatomical Region Laterality Modality Other us User Conversion ET GI PROCEDURE ORDERABLES Final Result from Last 3 Months or Most Recently Relevant to Health Maintenance Insurance [employer] Care Teams Photovoltaic Testing Technician Relationship Specialty Start Date End Date Devyn Blanc MD [address] [place] [address] PCP - General Family Practice 07/11/24
--- OUTSIDE RECORDS SUMMARY | 2025-01-22 12:32 | XMS_ITS | Clinical Summary ---
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 Gender Identity Not on file Sexual Orientation Not on file Plan of Treatment Health Maintenance Due Date Last Done Comments ADVANCE CARE PLANNING 1945 ANNUAL REVIEW OF HM ORDERS 1945 DIABETES SCREENING 1945 HEPATITIS C SCREENING 1964 LIPID 1986 ZOSTER IMMUNIZATION (1 of 2) 1996 FALL RISK ASSESSMENT 12/25/2011 MEDICARE ANNUAL WELLNESS VISIT 12/25/2011 Pneumococcal Vaccine: 50+ Years (2 of 2 - PCV) 06/15/2013 06/15/2012 DTAP/TDAP/TD IMMUNIZATION (2 - Td or Tdap) 12/02/2020 12/02/2010, 06/04/2003 RSV VACCINE (1 - 1-dose 75+ series) 2021 COVID-19 Vaccine ( - season) 2024 PHQ-2 (once per calendar year) 2024 INFLUENZA VACCINE (Season Ended) 2025 06/15/2012, 08/13/2011, 08/21/2010, Additional history exists HPV IMMUNIZATION Aged Out No longer e ligible based on patient's age to complete this topic MENINGITIS IMMUNIZATION Aged Out No l onger eligible based on patient's age to complete this topic [facility]AGE [employer]ET[employer] MEDICARE ADVANTAGE
--- OUTSIDE RECORDS SUMMARY | 2025-01-22 12:32 | XMS_ITS | Encounter Summary ---
Author Organization [facility] Address [address] [address] Care Team Providers Care Nail Technician Teacher Name Role Phone Devyn Blanc MD Primary Care Provider Reason for Visit * Procedure/Equipment (Routine) - Incomplete Specialty Diagnoses / Procedures Referred By Contsandro t Referred To Contact Diagnoses Cough, unspecified type Procedures XR Chest 2 Views Penny Malik PA-C [address] [place] [address] Phone: tel: fax: Referral ID Status Reason Start Date Expiration Date V isits Requested Visits Authorized [id number] Incomplete 01/20/2025 04/21/2026 1 1 Encounter Details Date Type Department Care Team (Latest Contact Info) Description 01/20/2025 9:35 AM CDT Ancillary Procedure [facility] [address] Rad[address] [address] [place] [address] Penny Malik PA-C [address] [place] [address] Cough, unspecified type Social History Tobacco Use [...] Info) Description 05/10/2025 7:40 AM CDT Appointment [facility] [address] [place] [address] Maurilio Seo MD [address] [facility] [address] [place] [phone] documented as of this encounter Procedures Procedure Name Priority Date/Time Associated Diagnosis Comments XR CHEST 2 VIEWS STAT 01/20/2025 9:36 AM CDT Cough, unspecified type documented in [...] improved on follow-up, CT would be recommended.. Penny Malik PA-C RAD GD Final Res ult documented in this encounter Visit Diagnoses Diagnosis Cough, unspecified type documented in this encounter Additional Health Concerns Infection Onset Date Last Indicated Resolved Time R/O COVID19 01/20/2025 01/20/2025 01/21/2025 1:02 AM CDT documented as of this encounter Care Teams Nail Technician Teacher Relationship Specialty Start Date End Date Devyn Blanc MD [address] [place] [address] PCP - General Family Practice 07/11/24 documented as of this encounter
--- OUTSIDE RECORDS SUMMARY | 2025-01-22 12:32 | XMS_ITS | Clinical Summary ---
Author Organization [facility] Address [address] [place] [id number] Care Team Providers Care Guard Range Name Role Phone Bienvenido Zarate MD Primary Care Provider Allergies No known active allergies Medications simvastatin (ZOCOR) 20 mg tablet Take 20 mg by mouth at bedtime. Active carbidopa-levod opa, 25-100 mg, (SINEMET 25-100) 25-100 mg tablet TAKE TWO TABLETS BY MOUTH THREE TIMES A DAY Active DULoxetine (CYMBALTA) 60 mg Delayed-release capsule Take 1 Tablet by mouth once daily. Active finasteride (PROSCAR) 5 mg tablet Take 1 Tablet by mouth once daily. Active Nuplazid 34 mg cap Take 1 Capsule by mouth once daily. 06/12/2024 Active pramipexole (MIRAPEX) 1.5 mg tablet Take 1 Tablet by mouth three times daily. Active QUEtiapine (SEROQUEL) 25 mg tablet Take 1 Tablet by mouth at bedtime. Active rivastigmine 4.6 mg/24 hours (EXELON) 4.6 mg/24 hour patch APPLY ONE PATCH TO THE SKIN ONE TIME DAILY Active Rasagiline (AZILECT) 1 mg tablet Take 1 mg by mouth. Active losartan-hydroc hlorothiazide, 50-12.5 mg, (HYZAAR) 50-12.5 mg tablet Take 1 Tablet by mouth once daily. Active HYDROcodone-brody taminophen (10-325 mg/tablet) 02/16/2024 Active nystatin (MYCOSTATIN) 100,000 unit/mL suspensionIndic ations:Oral thrush Swish and spit 10 mL by mouth four times daily. 473 mL 06/19/2024 Active Active Problems Problem Noted Date Diagnosed Date Tear of medial cartilage or meniscus of knee, cu rrent 12/08/2010 Overview (12/08/2010): Left knee Osteoarthrosis, unspecified whether generalized or localized, lower leg 12/08/2010 Overview (12/08/2010): Left knee Other specified disorders of rotator cuff syndrome of shoulder and allied disorders 07/10/2008 Social History Tobacco Use Types Packs/Day Years Used Date Smoking Tobacco: Never Smokeless Tobacco: Never Tobacco Cessation:Counseling Given: Not Answered Alcohol Use Standard Drinks/Week Comments Not Currently 0 (1 standard drink = 0.6 oz pur e alcohol) Sex and Gender Information Value Date Recorded Sex Assigned at Not on file Legal Sex Male 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 Gender Identity Not on file Sexual Orientation Not on file Obstetrics History Last Filed Vital Signs Vital Sign Reading Time Taken Comments Blood Pressure 110/72 06/19/2024 3:11 PM CDT Pulse 76 06/19/2024 3:11 PM CDT Temperature 36.7 C (98 F) 06/19/2024 3:11 PM CDT Respiratory Rate 16 06/19/2024 3:11 PM CDT Oxygen Saturation 98% 06/19/2024 3:11 PM CDT Inhaled Oxygen Concentration - - Weight 96.1 kg (211 lb 13.8 oz) 12/09/2010 6:21 AM CDT Height 182.9 cm (6') 12/05/2010 6:47 PM CDT Body Mass Index 28.73 12/05/2010 6:47 PM CDT Plan of Treatment Health Maintenance Due Date Last Done Comments Tdap 1957 Depression screening for age 12+ 1958 BMI (ht and wt on same day) for age 18+ 1964 Hepatitis C screening for age 18-79 1964 Tetanus booster 1966 Pneumococcal series for age 50+ (1 of 1 - PCV) 997 Zoster (shingles) series for age 50+ (1 of 2) 12/24/18 97 Medicare Wellness for age 65+ 12/25/2011 RSV vaccine for adults or pr egnancy (1 - 1-dose 75+ series) 2021 COVID-19 vaccine series ( season) Influenza Vaccine (Season Ended) 2025 Medical Devices Implanted Type Area Metal Treater Device Identifier Shelf Expiration Date Model / Serial / Lot Anchr Magnum2 Knotless W Technology Architect Handle - [id number] Implanted:Qty: 1 on 07/10/2008 at [facility] Left: Shoulder [employer] 08/06/2010 [id number] / / [id number] Sut Opus Magnum - [id number] Implanted:Qty: 2 on 07/10/2008 at [facility] [employer] [id number] / / Insurance MEDICARE PART B HB ONLY AETNA MR Advance Directives * Full Code (Latest Code Status on File) Date Activated Date Inactivated Comments 12/09/2010 6:19 AM 12/09/2010 1:13 PM * Full Code Date Activated Date Inactivated Comments 07/10/2008 10:31 AM 07/10/2008 7:22 PM Care Teams Guard Range Relationship Specialty Start Date End Date Bienvenido Zarate MD PCP - General Family Practice 11/28/10
--- OUTSIDE RECORDS SUMMARY | 2025-01-22 12:32 | XMS_ITS | Encounter Summary ---
Author Organization [facility] Address [address] [place] [address] Care Team Providers Care Drosser Name Role Phone Devyn Blanc MD Primary Care Provider Reason for Referral * Therapies (Routine) - New Request Specialty Diagnoses / Procedures Referred By Rashad tucker Referred To Contact Diagnoses Parkinson's disease, unspecified whether dyskinesia present, unspecified whether manifestations fluctuate (HRC) Maurilio Seo MD [address] [facility] [address] [place] [address] Phone: tel: fax: Referral ID Status Reason Start Date Expiration Date V isits Requested Visits Authorized [id number] New Request 01/01/2025 01/01/2026 1 1 Scheduling Instructions This order is your clinician's recommendation for a service and is not an insurance referral which authorizes payment. The recommended service and/or location may not be covered by your insurance plan. Please call the number on your insurance card to find out your specific benefits and coverage for the recommended services and/or location. If you need help scheduling the recommended services, please ask your clinician's staff to assist you. Question Answer Appointment Urgency? Non-Urgent Requested Services Evaluate and treat Reason for Visit Parkinson's Comments * Therapies (Routine) - New Request Specialty Diagnoses / Procedures Referred By Contac t Referred To Contact Diagnoses Parkinson's disease, unspecified whether dyskinesia present, unspecified whether manifestations fluctuate (HRC) Maurilio Seo MD [id number] [place] [address] Phone: tel: fax: Referral ID Status Reason Start Date Expiration Date V isits Requested Visits Authorized [id number] New Request 01/01/2025 01/01/2026 1 1 Scheduling Instructions This order is your clinician's recommendation for a service and is not an insurance referral which authorizes payment. The recommended service and/or location may not be covered by your insurance plan. Please call the number on your insurance card to find out your specific benefits and coverage for the recommended services and/or location. If you need help scheduling the recommended services, please ask your clinician's staff to assist you. Question Answer Appointment Urgency? Non-Urgent Requested Services Evaluate and treat Reason for Visit Parkinson's May use saline for irrigation or cleansing Yes dexamethasone use Yes May check glucose per protocol (see policy link below) or if patient has symptoms? Yes Comments Reason for Visit * Reason Comments Follow-up Legs giving out Encounter Details Date Type Department Care Team (Late st Contact Info) Description 01/01/2025 11:00 AM CDT Office Visit [facility] [address] [place] [phone] Maurilio Seo MD [id number] [place] [address] Parkinson's disease, unspecified whether dyskinesia present, unspecified whether manifestations fluctuate (HRC) (Primary Dx) Social History Tobacco Use Types Packs/Day Years [...] Sign Reading Time Taken Comments Blood Pressure 119/78 01/01/2025 11:15 AM CDT Pulse 72 01/01/2025 11:15 AM CDT Temperature - - Respiratory Rate - - Oxygen Saturation - - Inhaled Oxygen Concentration - - Weight 105.2 kg (232 lb) 01/01/2025 11:08 AM CDT shoes on Height - - Body Mass Index 32.92 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 Two easy ways to stay connected with what is going on at [facility]: If you have not already done so, we encourage you to sign up (for free) to be on our e-mailing list, so that you will receive information about upcoming classes, events, and activities hosted by [facility]! To sign up, simply send an email to [email or web address] indicating that you would like to be included. 2. Follow us on Facebook to learn more about current news and upcoming events. Find us at [facility]'s [place] [facility] [place]! Learn more about our ongoing [facility] studies here! [email or web address] I will print off physical and speech therapy orders for the Parkinson's exercise program, feel freeto update me in the next couple of weeks if this has helped with the episodes of leg weakness. We could consider an MRI of the thoracic spine and an EMG of the legs for further evaluation although I do not see distinct abnormalities on your exam today. Try checking a blood pressure after a spell to make sure blood pressure is not unusually low. Continue same medications for now. Maurilio Seo MD documented in this encounter Progress Notes * Maurilio Seo MD - 01/01/2025 11:00 AM CDT Chief complaint: Follow-up History of present illness: 79-year-old man here for neurologic follow-up, I saw him in consultation last June for a several year history of Parkinson's disease which looked reasonably well treated on the combination of carbidopa levodopa and pramipexole. He was coming off of an ankle fracture on his right leg after falling out of a golf cart. He subsequently had ankle replacement surgery which well and he has been making steady recovery from. He has completed therapy for this. Unfortunately as the last few months have gone on, he has developed episodes were both legs get weak and collapse when he is walking. This is not associated with any particular pain. Both legs are affected equally. He does have some back pain but this got better after a recent lumbar injection. He does not get lightheadedness or dizziness with these episodes at all. He does not lose awareness or consciousness. He tried increasing his carbidopa levodopa from one pill 3 times per day to two pills3 times per day and had no significant improvement. He feels cognition has been very stable, he remains on the combination of rivastigmine, memantine, as well as Nuplazid for hallucinations which had developed in the setting of bacteremia after his ankle fracture. Recent MRI of the lumbar spine showed evidence of right paracentral osteophyte at L4-L5 displacing the traversing right L5 nerve root. There was new severe left neural foraminal stenosis at L2-L3. There was other scattered degenerative changes but no significant central stenosis. He denies significant numbness of the lower extremities other than around his right ankle fracture. Physical exam: Vital signs: Blood pressure 143/87 seated and 118/78 standing. Pulse 76 seated and 72 standing. Weight 232 lb. Neurologic exam was remarkable for mild bradykinesia right greater than left in the upper and lowerextremities. There was no tremor at rest or with outstretched hands. There was no dyskinesia. He had relatively good strength throughout the upper and lower extremities with the exception of a littlebit of distal right lower extremity weakness around his ankle fracture. He had normal deep tendon re flexes in the upper extremities. Mildly reduced reflex at the left ankle. He had absent reflexes atthe right ankle in both knees owing to previous surgeries. He walked with the aid of a walker and had somewhat shortened stride length. No festination, freezing, or significant balance difficulties. Impression: 79-year-old man with several year history of Parkinson's disease which appears to be well-controlled on his current dose and schedule of carbidopa levodopa in regard to the primary motor aspects of his disease. The cause for his leg weakness episodes are unclear. They do not seem to be a ssociated with a more consistent form of weakness in the legs. They do not seem directly related toback or radicular pain. He does have an orthostatic blood pressure drop but not to any significant hypotension today and he really does not describe symptoms of orthostasis consistently. For now he is going to continue focusing on his therapy and is going to be starting some more intense physical therapy over the next couple of weeks. He will update me as to how this is going. If no improvement, we could consider broadening the neurologic workup to include MRI imaging of his thoracic spine or perhaps an EMG of the lower extremities but I would not say his exam today is in keepingwith obvious signs of neuropathy, myopathy, or myelopathy. He appears to be on an appropriate dose and schedule of carbidopa levodopa which he will continue. He will set up a routine follow-up visit in the next few months. A total of 34 minutes were spent on the visit, between the visit itself, chart review, and documentation. Maurilio Seo MD documented in this encounter Plan of Treatment Upcoming Encounters Date Type Department Care Team (Late st Contact Info) Description 05/10/2025 7:40 AM CDT Appointment [facility] [address] [place] [address] Maurilio Seo MD [id number] [place] [address] Scheduled Referrals Name Type Priority Associated Diagnoses Orde r Schedule Physical Therapy Referral Routine Parkinson's disease, unspecified whether dyskinesia present, unspecified whether manifestations fluctuate (HRC) Ordered: 01/01/2025 Speech Therapy Referral Routine Parkinson's disease, unspecified whether dyskinesia present, unspecified whether manifestations fluctuate (HRC) Ordered: 01/01/2025 documented as of this encounter Visit Diagnoses Diagnosis Parkinson's disease, unspecified whether dyskinesia present, unspecified whether manifestations fluctuate (HRC)- Primary documented in this encounter Care Teams Drosser Relationship Specialty Start Date End Date Devyn Blanc MD [address] [place] [address] PCP - General Family Practice 07/11/24 documented as of this encounter
--- OUTSIDE RECORDS SUMMARY | 2025-01-22 12:33 | XMS_ITS | Clinical Summary ---
Author Organization [facility] Address [address] [place] [address] Care Team Providers Care Pastry Decorator Name Role Phone Elsewhere, Pcp Primary Care Provider Unavailabl e Source Comments Patient records contain information from all sites at [facility]. For routine questions regarding patient records, call [phone] during business hours, M-F 8:00 AM - 5:00 PM Central Time. Record requests for emergency care only can be directed to [phone] at any time.[facility] Allergies No known active allergies [...] Tobacco: Never Tobacco Cessation:Counseling Given: Not Answered [facility] [employer] Answer Date Recorded In the past 12 months has [facility] [employer], [employer], or water [employer] threatened to shut off services in your [...] your living situation today? I have a [facility] place to live 10/20/2023 Sex and Gender Information Value Date Recorded Sex Assigned at Male 10/20/2023 9:29 AM FORM BUILDER Legal Sex Male 5:50 AM FORM BUILDER Gender Identity Male 10/20/2023 9:29 AM FORM BUILDER Sexual Orientation Straight 10/20/2023 9: 29 AM FORM BUILDER Last Filed Vital Signs Vital Sign Reading [...] Hagen M.D. LAB BLOOD ADD-ON Final Result [facility] [address] [place] [address], [place] [address] from Last 3 Months or Most Recently Relevant to Health Maintenance Insurance AETNA Advance Directives For more information, please contact: [phone] * Full Code (Latest Code Status on File) Date Activated Date Inactivated Comments 10/01/2023 10:34 PM 10/05/2023 1:47 PM Question Answer Comments Full Code: Discussed Care Teams Pastry Decorator Relationship Specialty Start Date End Date Elsewhere, Pcp PCP - General Internal Medicine 10/01/23
--- OUTSIDE RECORDS SUMMARY | 2025-01-22 12:33 | XMS_ITS | Clinical Summary ---
Author Organization [facility] Address [address] [address] Phone Care Team Providers Care Framing Mill Supervisor Name Role Phone Elsewhere, Pcp Primary Care [...] Administer with food. 5 Active HYDROcodone-ac etaminophen (Walling) 5-325 MG oral tabletIndicati ons:History of total [...] mouth one time a day. 5 Active Active Problems Problem Noted Date Diagnosed Date History of total ankle replacement, right 2024 Surgical History Surgery Date Site/Laterality Comments REMOVAL GALLBLADDER ELBOW BURSA SURGERY I&D HERNIA REPAIR LAMINECTOMY,LUMBAR REPAIR ROTATOR CUFF,ACUTE Left SPINE SURGERY TONSILLECTOMY UMBILICAL HERNIA REPAIR URETER SURGERY age 4 TOTAL ANKLE ARTHROPLASTY 09/22/2024 Ankle/Right Procedure: Right total ankle arthroplasty WITH TENDOACHILLES LENGTHENING; Surgeon: Santiago Rosado MD; Location: [facility] OR Medical devices from this surgery are in the Medical Devices section. Social History Tobacco Use Types Packs/Day Years Used Date Smoking Tobacco: Never Smokeless Tobacco: Never Tobacco Cessation:Counseling Given: Not Answered Alcohol Use Standard Drinks/Week Comments Yes 7 (1 standard drink = 0.6 oz pur e alcohol) [facility] Utilities Answer Date Recorded In the past [...] any time in the past 12 m [facility] [place], were you homeless or living in a snf (including now)? No 09/22/2024 IP Custom IPV Answer Date Recorded Do you feel UNSAFE in any of your personal relationships with your family members or any other acquaintances? No 2024 Sex and Gender Information Value Date Recorded Sex Assigned at Male 09/19/2024 11:21 AM BOTTLING LINE OPERATOR Legal Sex Male 2:54 PM BOTTLING LINE OPERATOR Gender Identity Male 09/19/2024 11:21 AM BOTTLING LINE OPERATOR Sexual Orientation Not on file Obstetrics History Last Filed Vital Signs Vital Sign Reading Time Taken Comments Blood Pressure 135/83 09/23/2024 8:09 AM BOTTLING LINE OPERATOR Pulse 81 09/23/2024 8:09 AM BOTTLING LINE OPERATOR Temperature 36.8 C (98.2 F) 09/23/2024 5:10 AM BOTTLING LINE OPERATOR Respiratory Rate 16 09/23/2024 5:10 AM BOTTLING LINE OPERATOR Oxygen Saturation 92% 09/23/2024 8:09 AM BOTTLING LINE OPERATOR Inhaled Oxygen Concentration - - Weight 100.7 kg (222 lb) 09/11/2024 12:01 PM BOTTLING LINE OPERATOR Height 180.3 cm (5' 11) 09/11/2024 12:01 PM BOTTLING LINE OPERATOR Body Mass Index 30.96 09/11/2024 12:01 PM BOTTLING LINE OPERATOR Plan of Treatment Health Maintenance Due Date Last Done Comments PERTUSSIS (Standing Order) 1965 TETANUS (Standing Order) 1965 Pneumococcal Vaccine: 50+ yr s (Standing Order) (1 of 1 - PCV) 1996 Shingrix (Zoster recombinant ) vaccine (Standing Order) (1 of 2) 1996 RSV Vaccination (60+ yrs) (Abrysvo/Arexvy) (1 - 1-dose 75+ series) 2021 HPV Vaccine (Standing Order) Aged Out No longer eligible based on patient's age to complete this topic Hepatitis B Vaccine (Standin g Order) Aged Out No longer eligible b ased on patient's age to complete this topic Medical Devices Implanted Type Area Glass Robot Operator Device Identifier Shelf Expiration Date Model / Serial / Lot Tray Tibial Corine Talaris Xl Size 2 - [id number] Implanted:Qty: 1 on 09/22/2024 by Santiago Rosado MD at [facility] Right: Ankle [employer]W [id number] 03/06/2028 [id number] / N/A / [id number] Implant Tibial Corine Talaris Sz 2 Rt - [id number] Implanted:Qty: 1 on 09/22/2024 by Santiago Rosado MD at [facility] Right: Ankle [employer]PHEW [id number] 06/06/2029 [id number] / N/A / [id number] Component Talar Corine Talaris Sz 2 Rt - [id number] Implanted:Qty: 1 on 09/22/2024 by Santiago Rosado MD at [facility] Right: Ankle [employer]PHEW 04/06/2026 [id number] / NA / [id number] Insurance AETNA MEDICARE ADVANTAGE Advance Directives For more information, please contact: [phone] Documents on File Type Date Recorded Patient Manager Bench Expl anation Advance Directive - RV 09/22/2024 12:29 PM Advance Directive * Full Code (Latest Code Status on File) Date Activated Date Inactivated Comments 09/22/2024 11:27 AM 09/23/2024 3:35 PM * Full Code Date Activated Date Inactivated Comments 09/22/2024 11:07 AM 09/22/2024 11:27 AM * Full Code Date Activated Date Inactivated Comments 09/22/2024 5:08 AM 09/22/2024 11:07 AM Care Teams Framing Mill Supervisor Relationship Specialty Start Date End Date Elsewhere, Pcp PCP - General 09/18/24
[2025-01-22 13:04] VITALS: BP 127/84; PULSE 84; RESP 20; TEMP 36.4; O2SAT 94; BMI 32.2
--- NOTE | 2025-01-22 13:20 | ED.GENADULT ---
HPI - General Adult General Time Seen by Provider: 13:21 Date Seen: 01/22/25 Chief complaint: Cough Stated complaint: pneumonia not improving Time Seen by Provider: 01/22/25 13:20 Source: patient, RN notes reviewed and old records reviewed Mode of arrival: ambulatory Limitations: no limitations History of Present Illness HPI narrative: Neal is a very pleasant 79-year-old male with history of Parkinson's disease recent treatment for pneumonia who comes to the emergency room with continued shortness of breath cough and now hemoptysis. Blurry notes the onset of symptoms of coughing with a yellow-powers a shoe phlegm production on WednesdayJanuary 17. Had low-grade temp at that time which continues through today. On WednesdayJanuary 20 he was seen at urgent care in [facility] at which time he had blood [place] [address], chest x-ray with questionable presumed pneumonia per Neal's and he tested negative for COVID at that time. He was placed on amoxicillin and doxycycline. He cannot take Zithromax because of a new Parkinson's medication called Nuplazid. He notes that he is not feeling better, continues to be short of breath even at rest and now has blood tinged phlegm. He has a mild headache and a scratchy throat although his sore throat is improved. He denies chest pain. He does not have a history of DVT or coagulopathy and is not currently on a blood thinner. Neal has no previous history of tobacco use, I has no history of COPD or emphysema, denies history of NV or other heart problems. According to paperwork from urgent care white count was 18.1 hemoglobin 14.5 and platelets [id number]. Unfortunately do not have the official radiological report for the chest x-ray Related Data Home Medications ?Medication ?Instructions ?Recorded ?Confirmed carbidopa 25 mg-levodopa 100 mg 2 tab PO 3XD 07/19/24 01/22/25 tablet duloxetine 60 mg capsule,delayed 60 mg PO DAILY 07/19/24 01/22/25 release finasteride 5 mg tablet 5 mg PO DAILY 07/19/24 01/22/25 losartan 50 mg-hydrochlorothiazide 1 tab PO DAILY 07/19/24 01/22/25 12.5 mg tablet memantine 10 mg tablet 10 mg PO BID 07/19/24 01/22/25 pimavanserin 34 mg capsule 34 mg PO DAILY 07/19/24 01/22/25 (Nuplazid) pramipexole 1.5 mg tablet 1.5 mg PO 3XD 07/19/24 01/22/25 rivastigmine 4.6 mg/24 hour 1 patch topical DAILY 07/19/24 01/22/25 transdermal patch simvastatin 20 mg tablet 20 mg PO QPM 07/19/24 01/22/25 pimavanserin 34 mg capsule 34 mg PO DAILY 11/03/24 11/03/24 (Nuplazid) azithromycin 250 mg tablet 250 mg PO DIRECTED 01/22/25 01/22/25 doxycycline hyclate 100 mg tablet 100 mg PO BID 01/22/25 01/22/25 Previous Rx's ?Medication ?Instructions ?Recorded cyclobenzaprine 10 mg tablet 10 mg PO TID #15 tabs 11/03/24 hydrocodone 5 mg-acetaminophen 325 1 tab PO Q4-6H PRN pain #15 tabs 11/03/24 mg tablet ketorolac 10 mg tablet 10 mg PO Q8H 5 days #15 tabs 11/03/24 methylprednisolone 4 mg tablets in See Rx Instructions PO .COMPLEX 11/03/24 a dose pack (Medrol (Tre)) #21 ea albuterol sulfate 2.5 mg/3 mL 2.5 mg (3 mL) inhalation Q4-6H PRN 01/22/25 (0.083 %) solution for nebulization #75 mL amoxicillin 875 mg-potassium 1 tab PO BID #10 tabs 01/22/25 clavulanate 125 mg tablet nebulizer and compressor #1 ea 01/22/25 prednisone 20 mg tablet 20 mg PO BID #8 tabs 01/22/25 Allergies Allergy/AdvReac Type Severity Reaction Status Date / Time No Known Drug Allergies Allergy Verified 01/22/25 15:29 Review of Systems Status of ROS: Reports: 10 or more systems reviewed and unremarkable except as noted in History and below Const: Reports: fever, chills and fatigue Eyes: Denies: change in vision ENMT: Reports: throat pain and nasal congestion Cardio: Reports: swelling of feet/ankles (Chronic right ankle swelling secondary to surgery) and shortness of breath with exertion; Denies: chest pain or palpitations Resp: Reports: shortness of breath, cough, change in phlegm color and coughing up blood; Denies: wheezing GI: Denies: abdominal pain, nausea, vomiting or diarrhea Neuro: Reports: headache Endo: Reports: fatigue Allergy/Immuno: Denies: wheezing [facility] Medical History Hypertension ?I10 - Essential (primary) hypertension (ICD-10) Parkinson disease ?G20.A1 - Parkinson's disease without dyskinesia, without mention of fluctuations (ICD-10) Surgical History History of bilateral knee replacement ?Z96.653 - Presence of artificial knee joint, bilateral (ICD-10) History of cholecystectomy ?Z90.49 - Acquired absence of other specified parts of digestive tract (ICD-10) History of tonsillectomy and adenoidectomy ?Z90.89 - Acquired absence of other organs (ICD-10) H/O hernia repair ?Z98.890 - Other specified postprocedural states (ICD-10) ?Z87.19 - Personal history of other diseases of the digestive system (ICD-10) History of incision and drainage (02/2024) ?Z98.890 - Other specified postprocedural states (ICD-10) Status post ORIF of fracture of ankle (09/15/23) ?Z98.890 - Other specified postprocedural states (ICD-10) ?Z87.81 - Personal history of (healed) traumatic fracture (ICD-10) Social History Smoking Status: Never smoker Do you use any of these nicotine containing products: None Second hand tobacco smoke exposure: No How often do you have a drink containing alcohol: 4 or more times a week How many standard drinks containing alcohol do you have on a typical day: 1 or 2 AUDIT-C Alcohol total score: 4 Non-prescribed substance use: denies use Exam Narrative: Exam Narrative: Alert and oriented. Very well-spoken gentleman in no acute distress. present loving and supportive. Eyes are clear oral cavity with moist mucous membranes. Neck is supple without lymphadenopathy. Heart with regular rate and rhythm. Lungs are with decreased breath sounds especially in the left lower lung base. I do not auscultate any crackles at this time. Abdomen soft nontender. Right lower extremity is with some discoloration at the ankle and 2+ swelling. No calf tenderness bilaterally. Const: Vital Signs, click to edit/add: Vital Signs - 24 hr 01/22/25 13:04 01/22/25 15:32 01/22/25 16:14 Temperature 97.5 F L Pulse Rate 79 80 Pulse Rate [Pulse Oximeter] 84 Respiratory Rate 20 20 18 Blood Pressure 132/83 128/89 Blood Pressure [Ri ght Upper Arm] 127/84 Pulse Oximetry 94 94 93 Oxygen Delivery Me thod Room Air Room Air Room Air Documenting provider has reviewed patient's vital signs: yes Course Course ED Course: Differential diagnosis includes but is not limited to PE, tumor, pneumonia, viral illness. Will place an IV and check labs to include CBC, comprehensive panel, CRP, troponin and triple swab for viruses. CT of the chest PE protocol. Reevaluation(s) Reevaluation #1: Patient noted to have reassuring CT of the chest. No evidence of PE or tumor. Does show pneumonia. And infiltrates. Will do a trial of albuterol nebulizer here. Will also give steroids 10 mg IV. Vital Signs Vital signs: Initial Vital Signs Temperature 97.5 F L 01/22/25 13:04 Temperature Source Temporal Artery Scan 01/22/25 13:04 Pulse Rate 84 01/22/25 13:04 Respiratory Rate 20 01/22/25 13:04 Blood Pressure 127/84 01/22/25 13:04 Blood Pressure Mean 98 01/22/25 13:04 Pulse Oximetry 94 01/22/25 13:04 Oxygen Delivery Method Room Air 01/22/25 13:04 Vital Signs Temperature 97.5 F L 01/22/25 13:04 Pulse Rate 84 01/22/25 13:04 Respiratory Rate 20 01/22/25 13:04 Blood Pressure 127/84 01/22/25 13:04 Pulse Oximetry 94 01/22/25 13:04 Oxygen Delivery Method Room Air 01/22/25 13:04 Temperature 97.5 F L 01/22/25 13:04 Pulse Rate 80 01/22/25 16:14 Respiratory Rate 18 01/22/25 16:14 Blood Pressure 128/89 01/22/25 16:14 Pulse Oximetry 93 01/22/25 16:14 Oxygen Delivery Method Room Air 01/22/25 16:14 Medications Administered Medications: Discontinued Medications Generic Name Dose Route Start Last Admin Trade Name Katherine PRN Reason Stop Dose Admin Albuterol 2.5 mg 01/22/25 15:51 01/22/25 16:00 Albuterol Sulfate 2.5 Mg/3 Ml Vial.Neb NEB 01/22/25 15:52 2.5 mg ONCE ONE Administration Dexamethasone 10 mg 01/22/25 15:51 01/22/25 16:01 Dexamethasone 10 Mg/Ml Pf IVP 01/22/25 15:52 10 mg ONCE ONE Administration Medical Decision Making MDM Narrative Medical decision making narrative: 1. Pneumonia-CT confirmed infiltrate past. No evidence of PE. Patient improved after nebulizer. Also received 1st dose of steroids 10 mg dexamethasone in the ED. will continue current dosing of doxycycline. However will change amoxicillin to Augmentin 875 p.o. b.i.d. for 5 more days. Prescription for nebulizer/compression or an albuterol sent to pharmacy. 2. Disposition-home at this time. Note EKG without any acute changes and troponin is negative. I felt that 1 troponin sufficient given patient's ongoing symptoms for the past few days. Return to the emergency room for worsening symptoms especially increasing fever difficulty breathing and as needed. I was contacted by nursing staff who notes that patient was on Augmentin and not amoxicillin as previously noted. Would have him continue this medication at this time. Medical Records Medical records reviewed: Yes I reviewed the patient's medical records Lab Data Lab results reviewed: Yes I reviewed the patient's lab results Labs: Lab Results 01/22/25 01/22/25 Range/Units 14:00 15:50 WBC 8.23 (4.50-11.00) K/uL RBC 4.79 (4.30-5.90) m/uL Hgb 13.8 (13.5-17.5) gm/dL Hct 42.4 (37.0-53.0) % MCV 89 (80-100) fL MCH 29 (26-34) pg MCHC 33 (32-36) gm/dL RDW Coeff of Deanna 13.2 (11.5-15.5) % Plt Count 247 (140-440) K/uL Neut % (Auto) 72.1 H (42.0-72.0) % Lymph % (Auto) 16.2 L (20-44) % Hall % (Auto) 7.5 (0.0-11.0) % Eos % (Auto) 3.2 (0.0-7.0) % Baso % (Auto) 0.5 (0.0-3.0) % Neut # (Auto) 5.90 (1.7-7.0) K/uL Lymph # (Auto) 1.30 (0.90-2.90) K/uL Hall # (Auto) 0.60 (0.00-0.90) K/UL Eos # (Auto) 0.26 (0.00-0.50) K/uL Baso # (Auto) 0.04 (0.00-0.30) K/uL Abs Immat Gran (auto) 0.04 (0.00-0.30) K/uL Imm/Tot Granulo (auto) 0.5 % Sodium 140 (135-149) mmol/L Potassium 4.0 (3.6-5.1) mmol/L Chloride 102 (96-114) mmol/L Carbon Dioxide 28 (20-32) mmol/L Anion Gap 10 (7-15) mEq/L BUN 13 (7-30) mg/dL Creatinine 0.7 (0.5-1.5) mg/dL Estimated Creat Clear 64.84 Estimated GFR 94 ml/min Glucose 99 (60-115) mg/dL Calcium 9.7 (8.4-10.6) mg/dL Total Bilirubin 0.6 (0.1-1.5) mg/dL AST 24 (12-35) U/L ALT 10 (4-50) U/L Alkaline Phosphatase 80 (40-150) U/L C-Reactive Protein 7.3 H (0.5-1.0) mg/dL Total Protein 7.4 (6.0-8.3) g/dL Albumin 4.3 (3.3-5.0) g/dL SARS-CoV-2 (PCR) Negative SARS-CoV-2 (Negative) Influenza Type A (PCR) Negative PCR FLU A (Negative) Influenza Type B (PCR) Negative PCR FLU B (Negative) RSV (PCR) Negative PCR RSV (Negative) POC Troponin I 0.00 L (0.01-0.04) ng/ml Imaging Data CT scan - chest: Attestation: I have reviewed the pertinent imaging results. Radiologist's impression: The thoracic inlet and thyroid gland are unremarkable. The thoracic aorta is nonaneurysmal. There is no central filling defect to suggest pulmonary embolism. There are reactive mediastinal and hilar lymph nodes. There is marked central bronchial thickening with mucoid impaction of the lower lobe bronchi. There are diffusely increased interstitial markings throughout the bilateral hemithoraces with developing airspace opacities in the khpf-mlvvvjp-avwj-right lower lobes likely representing developing multifocal infiltrates. There is no pneumothorax or pleural effusion. There is no evidence of pulmonary mass or suspicious pulmonary nodule. The partially visualized upper abdominal viscera are within normal limits. The thoracic vertebral body heights demonstrate endplate Schmorl`s defects and age-indeterminate deformities of the superior L1 level. Impression: 1. Aztr-jn-vppvtdib central bronchial thickening with mucoid impaction of the lower lobe bronchi with diffusely increased interstitial markings and developing airspace opacities within the lower lobes likely representing developing multifocal infiltrates and/or superimposed bronchitis changes. No evidence of pulmonary embolus. ECG Data Attestation: I personally reviewed and interpreted this ECG as follows: Interpretation: EKG by my read shows sinus rhythm at a rate of 77. Poor R-wave progression is noted. I do not note any acute ST or T-wave changes. Discharge Plan Discharge Clinical Impression: Pneumonia Patient Disposition: Home, Self-Care Condition: Improved Additional Instructions: 1. Amoxicillin. We will move you to a similar medicine called Augmentin for broader coverage. Continue your current dosing of doxycycline. 2. We gave you of your 1st dose of a steroid through the IV today. Will have you continue with prednisone starting tomorrow for an additional 4 days. 3. Nebulizer with albuterol as needed. 4. Seek medical attention for worsening symptoms especially shortness of breath, chest pain, worsening symptoms. Prescriptions: New amoxicillin-pot clavulanate 875-125 mg tablet 1 tab PO BID Qty: 10 0RF albuterol sulfate 2.5 mg /3 mL (0.083 %) solution for nebulization 2.5 mg inhalation Q4-6H PRNQty: 75 0RF (DME) nebulizer and compressor Device See Rx Instructions .Route Qty: 1 0RF Rx Instructions: As directed prednisone 20 mg tablet 20 mg PO BID Qty: 8 0RF No Action rivastigmine 4.6 mg/24 hour patch 24 hour 1 patch topical DAILY losartan-hydrochlorothiazide 50-12.5 mg tablet 1 tab PO DAILY Nuplazid 34 mg capsule 34 mg PO DAILY finasteride 5 mg tablet 5 mg PO DAILY carbidopa-levodopa 25-100 mg tablet 2 tab PO 3XD duloxetine 60 mg capsule,delayed release(DR/EC) 60 mg PO DAILY memantine 10 mg tablet 10 mg PO BID pramipexole 1.5 mg tablet 1.5 mg PO 3XD simvastatin 20 mg tablet 20 mg PO QPM Nuplazid 34 mg capsule 34 mg PO DAILY cyclobenzaprine 10 mg tablet 10 mg PO TID Qty: 15 0RF hydrocodone-acetaminophen 5-325 mg tablet 1 tab PO Q4-6H PRN (Reason: pain) Qty: 15 0RF ketorolac 10 mg tablet 10 mg PO Q8H 5 Days Qty: 15 0RF methylprednisolone [Medrol (Tre)] 4 mg tablets,dose pack See Rx Instructions .ROUTE .COMPLEX Qty: 21 0RF Rx Instructions: orally per package directions azithromycin 250 mg tablet 250 mg PO DIRECTED doxycycline hyclate 100 mg tablet 100 mg PO BID Follow Up/Referrals: Provider,Not a Local [Primary Care Provider] - Stand Alone Forms: [facility] Info Inst[facility]
--- NOTE | 2025-01-22 13:47 | CRLHL7_ITS ---
For Patients: As a result of the Century Cures Act, medical imaging exams and procedure reports are released immediately into your electronic medical record. You may view this report before your referring provider. If you have questions, please contact your health care provider. Indication: Pneumonia, shortness of breath Technique: Volumetric multidetector CT images of the chest were obtained after the administration of IV contrast. 95 cc Isovue 370 low osmolar intravenous contrast Comparison: None available. Findings: The thoracic inlet and thyroid gland are unremarkable. The thoracic aorta is nonaneurysmal. There is no central filling defect to suggest pulmonary embolism. There are reactive mediastinal and hilar lymph nodes. There is marked central bronchial thickening with mucoid impaction of the lower lobe bronchi. There are diffusely increased interstitial markings throughout the bilateral hemithoraces with developing airspace opacities in the vrbu-rlqdagt-yvfu-right lower lobes likely representing developing multifocal infiltrates. There is no pneumothorax or pleural effusion. There is no evidence of pulmonary mass or suspicious pulmonary nodule. The partially visualized upper abdominal viscera are within normal limits. The thoracic vertebral body heights demonstrate endplate Schmorl`s defects and age-indeterminate deformities of the superior L1 level. Impression: 1. Zfrp-wo-deltdslp central bronchial thickening with mucoid impaction of the lower lobe bronchi with diffusely increased interstitial markings and developing airspace opacities within the lower lobes likely representing developing multifocal infiltrates and/or superimposed bronchitis changes. No evidence of pulmonary embolus. Please note that all CT scans at this facility use dose modulation, iterative reconstruction, and/or weight-based dosing when appropriate to reduce radiation dose to as low as reasonably achievable. Dictated by Conner Morales MD @ 01/22/2025 3:43:44 PM (Electronically Signed)
--- OUTSIDE RECORDS SUMMARY | 2025-01-22 13:56 | XMS_ITS | Clinical Summary ---
Author Organization [facility] Address [address] [address] Phone Care Team Providers Care Rewards Consultant Name Role Phone Elsewhere, Pcp Primary Care [...] Administer with food. 5 Active HYDROcodone-ac etaminophen ([place]) 5-325 MG oral tabletIndicati ons:History of total [...] TENDOACHILLES LENGTHENING; Surgeon: Santiago Rosado MD; Location: [facility] Medical devices from this surgery are in the Medical Devices section. Social History Tobacco Use Types Packs/Day Years Used Date Smoking Tobacco: Never Smokeless Tobacco: Never Tobacco Cessation:Counseling Given: Not Answered Alcohol Use Standard Drinks/Week Comments Yes 7 (1 standard drink = 0.6 oz pur e alcohol) [facility] Utilities Answer Date Recorded In the [...] any time in the past 12 m [facility], were you homeless or living in a correction (including now)? No 09/22/2024 IP Custom IPV Answer Date Recorded Do you feel UNSAFE in any of your personal relationships with your family members or any other acquaintances? No 2024 Sex and Gender Information Value Date Recorded Sex Assigned at Male 09/19/2024 11:21 AM MECHANICAL INSPECTOR Legal Sex Male 2:54 PM MECHANICAL INSPECTOR Gender Identity Male 09/19/2024 11:21 AM MECHANICAL INSPECTOR Sexual Orientation Not on file Obstetrics History Last Filed Vital Signs Vital Sign Reading Time Taken Comments Blood Pressure 135/83 09/23/2024 8:09 AM MECHANICAL INSPECTOR Pulse 81 09/23/2024 8:09 AM MECHANICAL INSPECTOR Temperature 36.8 C (98.2 F) 09/23/2024 5:10 AM MECHANICAL INSPECTOR Respiratory Rate 16 09/23/2024 5:10 AM MECHANICAL INSPECTOR Oxygen Saturation 92% 09/23/2024 8:09 AM MECHANICAL INSPECTOR Inhaled Oxygen Concentration - - Weight 100.7 kg (222 lb) 09/11/2024 12:01 PM MECHANICAL INSPECTOR Height 180.3 cm (5' 11) 09/11/2024 12:01 PM MECHANICAL INSPECTOR Body Mass Index 30.96 09/11/2024 12:01 PM MECHANICAL INSPECTOR Plan of Treatment Health Maintenance Due Date [...] this topic Medical Devices Implanted Type Area Fruit Or Nut Grower Device Identifier Shelf Expiration Date Model / Serial / Lot Tray Tibial Corine Talaris Xl Size 2 - [id number] Implanted:Qty: 1 on 09/22/2024 by Santiago Rosado MD at [facility] Right: Ankle [employer] [id number] 03/06/2028 [id number] / N/A / [id number] Implant Tibial Corine Talaris Sz 2 Rt - [id number] Implanted:Qty: 1 on 09/22/2024 by Santiago Rosado MD at [facility] Right: Ankle [employer] NEPHEW [id number] 06/06/2029 [id number] / N/A / [id number] Component Talar Corine Talaris Sz 2 Rt - [id number] Implanted:Qty: 1 on 09/22/2024 by Santiago Rosado MD at [facility] Right: Ankle IV[employer] NEPHEW 04/06/2026 [id number] / NA / [id number] Insurance [employer] MED[employer]ARE ADVANTAGE Advance Directives For more information, please contact: [phone] Documents on File Type Date Recorded Patient Editor At Large Expl anation Advance Directive - RV 09/22/2024 12:29 PM Advance Directive * Full Code (Latest Code Status on File) Date Activated Date Inactivated Comments 09/22/2024 11:27 AM 09/23/2024 3:35 PM * Full Code Date Activated Date Inactivated Comments 09/22/2024 11:07 AM 09/22/2024 11:27 AM * Full Code Date Activated Date Inactivated Comments 09/22/2024 5:08 AM 09/22/2024 11:07 AM Care Teams Rewards Consultant Relationship Specialty Start Date End Date Elsewhere, Pcp PCP - General 09/18/24
--- OUTSIDE RECORDS SUMMARY | 2025-01-22 13:56 | XMS_ITS | Clinical Summary ---
Author Organization [facility] Address [address] [place] [address] Care Team Providers Care Pharmacist Helper Name Role Phone Devyn Blanc MD Primary [...] for each transition of care or referral. [facility] Allergies No known active allergies Medications psyllium [...] 3 08/22/20 24 025 Active nystatin (MYCOSTATIN) 213862 UNIT/ML suspension Take 10 mL by mouth. [...] Description 01/20/2025 9:40 AM CDT Lab Visit [facility] [address] [place] [phone] Cough, unspecified type 01/20/2025 9:35 AM CDT Ancillary Procedure [facility] [address] [facility] [address] [place] [phone] Penny Malik PA-C Cough, unspecified type 01/20/2025 9:00 AM CDT Office Visit [place] [facility] [address] [place] [phone] Penny Malik PA-C Pneumonia of right lung due to infectious organism, unspecified part of lung (Primary Dx); Cough, unspecified type 01/01/2025 11:00 AM CDT Office Visit [facility] [address] [place] [address] Maurilio Seo MD Parkinson's disease, unspecified whether dyskinesia present, unspecified whether manifestations fluctuate (HRC) (Primary Dx) 12/20/2024 Telephone [facility] [address] [place] [address] Evelin Mo RN Symptoms (Weakness) 11/30/2024 8:10 AM CDT E-Visit [facility] [address] [place] [address] Maurilio Seo MD Chief Comp: QUESTIONS, GENERAL 11/17/2024 11:30 AM CDT E-Visit [facility] [address] [place] [address] Devyn Blanc MD Chief Comp: RESULTS, TEST 11/15/2024 [facility] [address] [place] [address] Devyn Blanc MD 11/14/2024 3:30 PM CDT Ancillary Procedure [facility] [address] Radiology [place] [address] [place] [phone] Devyn Blanc MD Acute right-sided low back pain without sciatica 11/07/2024 11:30 AM QUICK MIXER OPERATOR Office Visit [facility] [address] [place] [address] Devyn Blanc MD Encounter for Medicare annual wellness exam (Primary Dx); Acute right-sided low back pain without sciatica from Last 3 Months Immunizations Immunization Administration Dates Next Due Flu Vac Preserv Free (3+yrs) 06/15/2012, 08/13/2011,08/21/2010,2007 Influenza IIV4 (Quadrivalent ) Fluzone, 65+ Yrs 10/02/2023 PCV20 (Jaqlnao78) 09/05/2024 PPSV23 (Pneumovax) 06/15/2012 TDAP (ADACEL) 12/02/2010 [...] 178.8 cm (5' 10.39) 11/07/2024 11:26 AM QUICK MIXER OPERATOR Body Mass Index 32.92 11/07/2024 11:26 AM QUICK MIXER OPERATOR Plan of Treatment Upcoming Encounters Date Type Department Care Team (Late st Contact Info) Description 05/10/2025 7:40 AM CDT Appointment [facility] [place] [address] Maurilio Seo MD [address] [facility] [address] [place] [phone] Health Maintenance Due Date Last Done Comments [...] Separator Tube (green) (01/20/2025 9:29 AM CDT) [facility] Extra Light Green Tube Drawn Specimen will be held for 5 days 01/20/2025 11:00 AM [facility] Blood Venipuncture / Unknown 01/20/2025 9:29 AM CDT 01/20/2025 9:38 AM CDT us Penny Malik PA-C LAB_1 Final Res ult [facility] [address] [place] [address] * (ABNORMAL) Complete Blood Count-W/Diff (01/20/2025 9:29 AM CDT) [facility] WBC 18.1(H) 3.5 - 10.5 x10(9)/L 01/20/2025 9:41 AM [facility] RBC 5.04 4.32 - 5.72 x10(12)/L 01/20/2025 9:41 AM [facility] Hemoglobin 14.5 13.5 - 17.5 g/dL 01/20/2025 9:41 AM [facility] HCT 44.4 38.8 - 50.0 % 01/20/2025 9:41 AM [facility] MCV 88.1 80.0 - 100.0 fL 01/20/2025 9:41 AM [facility] MCH 28.8 27.6 - 33.3 pg 01/20/2025 9:41 AM [facility] MCHC 32.7 31.5 - 35.2 g/dL 01/20/2025 9:41 AM [facility] RDW 13.6 11.9 - 15.5 % 01/20/2025 9:41 AM [facility] Platelets 227 150 - 450 x10(9)/L 01/20/2025 9:41 AM [facility] Automated NRBC 0 <=0 /100 WBC 01/20/2025 9:41 AM [facility] Neutrophil Absolute 15.1(H) 1.7 - 7.0 10(9)/L 01/20/2025 9:41 AM [facility] Lymphocyte Absolute 1.2 1.0 - 4.8 10(9)/L 01/20/2025 9:41 AM [facility] Monocyte Absolute 1.6(H) 0.2 - 0.9 10(9)/L 01/20/2025 9:41 AM [facility] Eosinophil Absolute 0.1 0.0 - 0.5 10(9)/L 01/20/2025 9:41 AM [facility] Basophil Absolute 0.1 0.0 - 0.3 10(9)/L 01/20/2025 9:41 AM [facility] Immature Granulocyte % 0.6(H) 0.0 - 0.5 % 01/20/2025 9:41 AM [facility] Blood Venipuncture / Unknown 01/20/2025 9:29 AM CDT 01/20/2025 9:38 AM CDT us Penny Malik PA-C LAB_1 Final Res ult [facility] [address] [place] [address], [facility] * 2019 Novel Coronavirus (COVID-19) - Collect in Clinic Today (01/20/2025 9:17 AM CDT) [facility] Signature COVID-19 Interpretation Not Detected Not Detected 1:02 AM CDT [facility] Source Nasopharyngeal swab 1:02 AM CDT [facility] Swab (Source Required) Non-blood Collection / Unknown 01/20/2025 9:17 AM CDT 01/20/2025 10:13 AM CDT Narrative [facility] - 01/21/2025 1:02 AM CDT Test performed by Box Sealing Machine Catcher Mediated Amplification. TMA has been shown to be equivalent to commercial real-time PCR tests. This test has been authorized by the FDA under Emergency Use Authorization (EUA) for use by authorized laboratories. Penny Malik PA-C LAB_1 Final Res ult [facility] [address] * MR Lumbar Spine WO IV [...] adapted from Rajinder W, Rivera PH, Elkin Dvais, tylorl. AJNR AM J Neuroradiol 2015:36:811-16. Devyn [...] - 06/13/2012 5:24 PM CDT Performed at [facility], [address] [place] [address] us Bienvenido Zarate MD LAB_1 Final Resul t HP CONVERSION * Endoscopy, colon, diagnostic (05/12/2003 3:14 PM CDT) Anatomical Region Laterality Modality Other us User Conversion ET GI PROCEDURE ORDERABLES Final Result from Last 3 Months or Most Recently Relevant to Health Maintenance Insurance AETNA Care Teams Pharmacist Helper Relationship Specialty Start Date End Date Devyn Blanc MD [address] [place] [address] PCP - General Family Practice 07/11/24
--- OUTSIDE RECORDS SUMMARY | 2025-01-22 13:56 | XMS_ITS | Clinical Summary ---
Author Organization [facility] Address [address] [place] [address] Care Team Providers Care Extrusion Die Repair Manager Name Role Phone Elsewhere, Pcp Primary Care Provider Unavailabl e Source Comments Patient records contain information from all sites at [facility]. For routine questions regarding patient records, call [phone] during business hours, M-F 8:00 AM - 5:00 PM Central Time. Record requests for emergency care only can be directed to [phone] at any time.[facility] Allergies No known active allergies Medications carbidopa-levodo [...] Tobacco: Never Tobacco Cessation:Counseling Given: Not Answered [facility] Equiphonities Answer Date Recorded In the past 12 months has [facility] [employer], [employer], or water [employer] threatened to shut off services in your [...] your living situation today? [facility] live 10/20/2023 Sex and Gender Information Value Date Recorded Sex Assigned at Male 10/20/2023 9:29 AM CASINO SHIFT MANAGER Legal Sex Male 5:50 AM CASINO SHIFT MANAGER Gender Identity Male 10/20/2023 9:29 AM CASINO SHIFT MANAGER Sexual Orientation Straight 10/20/2023 9: 29 AM CASINO SHIFT MANAGER Last Filed Vital Signs Vital Sign Reading [...] Hagen M.D. LAB BLOOD ADD-ON Final Result [facility] [address] [place] [address], [facility] [place] [address] from Last 3 Months or Most Recently Relevant to Health Maintenance Insurance AETNA Advance Directives For more information, please contact: [phone] * Full Code (Latest Code Status on File) Date Activated Date Inactivated Comments 10/01/2023 10:34 PM 10/05/2023 1:47 PM Question Answer Comments Full Code: Discussed Care Teams Extrusion Die Repair Manager Relationship Specialty Start Date End Date Elsewhere, Pcp PCP - General Internal Medicine 10/01/23
--- OUTSIDE RECORDS SUMMARY | 2025-01-22 13:56 | XMS_ITS | Encounter Summary ---
Author Organization [facility] Address [address] [address] Care Team Providers Care Training Engineer Name Role Phone Devyn Blanc MD Primary Care Provider Reason for Visit * Reason Comments Symptoms Weakness Encounter Details Date Type Department Care Team (Late st Contact Info) Description 12/20/2024 Telephone [facility] [address] [place] [address] Evelin Mo, RN Symptoms (Weakness) [...] Info) Description 05/10/2025 7:40 AM CDT Appointment [facility] [address] [place] [address] Maurilio Seo MD [address] [facility] [address] [place] [phone] documented as of this encounter Visit Diagnoses Not on filedocumented in this encounter Care Teams Training Engineer Relationship Specialty Start Date End Date Devyn Blanc MD [address] [place], [place] [address] PCP - General Family Practice 07/11/24 documented as of this encounter
--- OUTSIDE RECORDS SUMMARY | 2025-01-22 13:56 | XMS_ITS | Encounter Summary ---
Author Organization [email or web address] Address [address] [place] [address] Care Team Providers Care Doctor Of Osteopathy Name Role Phone Devyn Blanc MD Primary Care Provider Reason for Referral * Procedure/Equipment (Routine) - Incomplete Specialty Diagnoses / Procedures Referred By Rashad t Referred To Contact Diagnoses Cough, unspecified type Procedures XR Chest 2 Views Jann Malik PA-C [address] [place] [address] Phone: tel: fax: Referral ID Status Reason Start Date Expiration Date V isits Requested Visits Authorized [id number] Incomplete 01/20/2025 04/21/2026 1 1 Reason for Visit * Reason Comments Cough Fever Encounter Details Date Type Department Care Team (Late st Contact Info) Description 01/20/2025 9:00 AM CDT Office Visit [facility] [address] [place] [address] Jann Malik PA-C [address] [place], [place] [phone] Pneumonia of right lung due to infectious [...] be sent through Care Everywhere. * Pneumonia (Pashto) documented in this encounter Progress Notes * [...] Info) Description 05/10/2025 7:40 AM CDT Appointment [facility] [address] [place] [address] Maurilio Seo MD [address] [facility] [address] [place] [address] documented as of this encounter [...] Separator Tube (green) (01/20/2025 9:29 AM CDT) [facility] Extra Light Green Tube Drawn Specimen will be held for 5 days 01/20/2025 11:00 AM CDT [facility] Blood Venipuncture / Unknown 01/20/2025 9:29 AM CDT 01/20/2025 9:38 AM CDT Jann Malik PA-C LAB_1 Final Res ult [facility] [address] [place] [address] * 2019 Novel Coronavirus (COVID-19) - Collect in Clinic Today (01/20/2025 9:17 AM CDT) [facility] COVID-19 Interpretation Not Detected Not Detected 1:02 AM CDT [facility] Source Nasopharyngeal swab 1:02 AM CDT [facility] Swab (Source Required) Non-blood Collection / Unknown 01/20/2025 9:17 AM CDT 01/20/2025 10:13 AM CDT [facility] - 01/21/2025 1:02 AM CDT Test performed by Glass Sagger Mediated Amplification. TMA has been shown to be equivalent to commercial real-time PCR tests. This test has been authorized by the FDA under Emergency Use Authorization (EUA) for use by authorized laboratories. us Jann Malik PA-C LAB_1 Final Res ult [facility] [address] documented in this encounter Visit Diagnoses Diagnosis Pneumonia of right lung due to infectious organism, unspecified part of lung- Primary Cough, unspecified type Cough, unspecified type documented in this encounter Additional Health Concerns Infection Onset Date Last Indicated Resolved Time R/O COVID19 01/20/2025 01/20/2025 01/21/2025 1:02 AM CDT documented as of this encounter Care Teams Doctor Of Osteopathy Relationship Specialty Start Date End Date Devyn Blanc MD [address] [place] [address] PCP - General Family Practice 07/11/24 documented as of this encounter
--- OUTSIDE RECORDS SUMMARY | 2025-01-22 13:56 | XMS_ITS | Encounter Summary ---
Author Organization [facility] Address [address] [address] Care Team Providers Care Claim Trainee Name Role Phone Devyn Blanc MD Primary Care Provider Encounter Details Date Type Department Care Team (Late st Contact Info) Description 01/20/2025 9:40 AM CDT Lab Visit [facility] [address] [place] [address] Cough, unspecified type Social History [...] Info) Description 05/10/2025 7:40 AM CDT Appointment [facility] [address] [place], [place] [address] Maurilio Seo MD [address] [facility] [address] [place] [phone] documented as of this encounter Procedures Procedure [...] 3.5 - 10.5 x10(9)/L 01/20/2025 9:41 AM [facility] RBC 5.04 4.32 - 5.72 x10(12)/L 01/20/2025 9:41 AM [facility] Hemoglobin 14.5 13.5 - 17.5 g/dL 01/20/2025 9:41 AM [facility] HCT 44.4 38.8 - 50.0 % 01/20/2025 9:41 AM [facility] MCV 88.1 80.0 - 100.0 fL 01/20/2025 9:41 AM [facility] MCH 28.8 27.6 - 33.3 pg 01/20/2025 9:41 AM [facility] MCHC 32.7 31.5 - 35.2 g/dL 01/20/2025 9:41 AM [facility] RDW 13.6 11.9 - 15.5 % 01/20/2025 9:41 AM [facility] Platelets 227 150 - 450 x10(9)/L 01/20/2025 9:41 AM [facility] Automated NRBC 0 <=0 /100 WBC 01/20/2025 9:41 AM [facility] Neutrophil Absolute 15.1(H) 1.7 - 7.0 10(9)/L 01/20/2025 9:41 AM [facility] Lymphocyte Absolute 1.2 1.0 - 4.8 10(9)/L 01/20/2025 9:41 AM [facility] Monocyte Absolute 1.6(H) 0.2 - 0.9 10(9)/L 01/20/2025 9:41 AM [facility] Eosinophil Absolute 0.1 0.0 - 0.5 10(9)/L 01/20/2025 9:41 AM [facility] Basophil Absolute 0.1 0.0 - 0.3 10(9)/L 01/20/2025 9:41 AM [facility] Immature Granulocyte % 0.6(H) 0.0 - 0.5 % 01/20/2025 9:41 AM [facility] Blood Venipuncture / Unknown 01/20/2025 9:29 AM CDT 01/20/2025 9:38 AM CDT Penny Malik PA-C LAB_1 Final Res ult Performing Organization Address [facility] de Phone Number [facility] [address] * Extra Plasma Separator Tube (green) (01/20/2025 9:29 AM CDT) Extra Light Green Tube Drawn Specimen will be held for 5 days 01/20/2025 11:00 AM [facility] Blood Venipuncture / Unknown 01/20/2025 9:29 AM CDT 01/20/2025 9:38 AM CDT Penny Malik PA-C LAB_1 Final Res ult Performing Organization Address [facility] de Phone Number [facility] [address] documented in this encounter Visit Diagnoses Diagnosis Cough, unspecified type documented in this encounter Additional Health Concerns Infection Onset Date Last Indicated Resolved Time R/O COVID19 01/20/2025 01/20/2025 01/21/2025 1:02 AM CDT documented as of this encounter Care Teams Claim Trainee Relationship Specialty Start Date End Date Devyn Blanc MD [address] [place] [address] PCP - General Family Practice 07/11/24 documented as of this encounter
--- OUTSIDE RECORDS SUMMARY | 2025-01-22 13:56 | XMS_ITS | Clinical Summary ---
Author Organization [facility] Address [address] [place] [address] Care Team Providers Care Director College Name Role Phone Bienvenido Zarate MD Primary [...] on file Legal Sex Male 7:01 AM HYDROLOGIST Gender Identity Not on file Sexual Orientation [...] Ended) 2025 Medical Devices Implanted Type Area General Maintenance Technician Device Identifier Shelf Expiration Date Model / Serial / Lot Anchr Magnum2 Knotless W Desulfurizer Machine Handle - [id number] Implanted:Qty: 1 on 07/10/2008 at [facility] Left: Shoulder [employer] 08/06/2010 [id number] / / [id number] Sut Opus Magnum - [id number] Implanted:Qty: 2 on 07/10/2008 at [facility] [employer] [id number] / / Insurance MEDICARE PART B HB ONLY AETNA MR Advance Directives * Full Code (Latest Code Status on File) Date Activated Date Inactivated Comments 12/09/2010 6:19 AM 12/09/2010 1:13 PM * Full Code Date Activated Date Inactivated Comments 07/10/2008 10:31 AM 07/10/2008 7:22 PM Care Teams Director College Relationship Specialty Start Date End Date Bienvenido Zartae MD PCP - General Family Practice 11/28/10
--- OUTSIDE RECORDS SUMMARY | 2025-01-22 13:56 | XMS_ITS | Encounter Summary ---
Author Organization [employer] Address [address] [place] [address] Care Team Providers Care Visitor Services Associate Name Role Phone Devyn Blanc MD Primary Care Provider Reason for Referral * Therapies (Routine) - New Request Specialty Diagnoses / Procedures Referred By Rashad tucker Referred To Contact Diagnoses Parkinson's disease, unspecified whether dyskinesia present, unspecified whether manifestations fluctuate (HRC) Maurilio Seo MD [address] [facility] [address] [place] [address] Phone: tel: fax: Referral ID Status Reason Start Date Expiration Date V isits Requested Visits Authorized [id number] New Request 01/01/2025 01/01/2026 1 1 Scheduling [...] whether manifestations fluctuate (HRC) Maurilio Seo MD [phone] [place] [address] Phone: tel: fax: Referral ID Status Reason Start Date Expiration Date V isits Requested Visits Authorized [id number] New Request 01/01/2025 01/01/2026 1 1 Scheduling [...] Description 01/01/2025 11:00 AM CDT Office Visit [facility] [address] [place] [address] Maurilio Seo MD [phone] [place] [address] Parkinson's disease, unspecified whether dyskinesia [...] Body Mass Index 32.92 11/07/2024 11:26 AM TEMPERATURE REGULATOR documented in this encounter Patient Instructions * Patient Instructions* Maurilio Seo MD - 01/01/2025 11:00 AM CDT Please contact us using [employer] or by calling the [facility] nurse line at [phone]. Two easy ways to stay connected with what is going on at [facility]: If you have not already done so, we encourage you to sign up (for free) to be on our e-mailing list, so that you will receive information about upcoming classes, events, and activities hosted by [facility]! To sign up, simply send an email to [email or web address] indicating that you would like to be included. 2. Follow us on Facebook to learn more about current news and upcoming events. Find us at [facility] [employer] [place]! Learn more about our ongoing [facility] studies here! [email or web address] I will print off physical and speech [...] Info) Description 05/10/2025 7:40 AM CDT Appointment [facility] [address] [place] [address] Maurilio Seo MD [phone] [place] [address] Scheduled Referrals Name Type Priority Associated Diagnoses [...] Primary documented in this encounter Care Teams Visitor Services Associate Relationship Specialty Start Date End Date Devyn Blanc MD [address] [place] [address] PCP - General Family Practice 07/11/24 documented as of this encounter
--- OUTSIDE RECORDS SUMMARY | 2025-01-22 13:56 | XMS_ITS | Clinical Summary ---
Author Organization [facility] Address [address] [place] [address] Care Team Providers Care Fiberglass Quality Technician Name Role Phone Unavailable Primary Care Provider Unavailabl e Social History Tobacco Use Types Packs/Day Years Used Date Smoking Tobacco: Never Assessed Sex and Gender Information Value Date Recorded Sex Assigned at Not on file Legal Sex Male 3:27 AM REPAIR WEAVER Gender Identity Not on file Sexual Orientation [...] patient's age to complete this topic [facility] AETNA MEDICARE ADVANTAGE
--- OUTSIDE RECORDS SUMMARY | 2025-01-22 13:56 | XMS_ITS | Encounter Summary ---
Author Organization [employer] Address [address] [place] [address] Care Team Providers Care Gusset Edger Name Role Phone Devyn Blanc MD Primary Care Provider Reason for Visit * Procedure/Equipment (Routine) - Incomplete Specialty Diagnoses / Procedures Referred By Contsandro t Referred To Contact Diagnoses Cough, unspecified type Procedures XR Chest 2 Views Penny Malik PA-C [address] [place] [address] Phone: tel: fax: Referral ID Status Reason Start Date Expiration Date V isits Requested Visits Authorized [id number] Incomplete 01/20/2025 04/21/2026 1 1 Encounter Details Date Type Department Care Team (Latest Contact Info) Description 01/20/2025 9:35 AM CDT Ancillary Procedure [facility] [address] Radiology [address] [place] [address] Penny Malik PA-C [address] [place] [address] Cough, unspecified type Social History [...] Info) Description 05/10/2025 7:40 AM CDT Appointment [facility] [address] [place] [address] Maurilio Seo MD [address] [facility] [address] [place] [phone] documented as of this encounter Procedures Procedure [...] documented as of this encounter Care Teams Gusset Edger Relationship Specialty Start Date End Date Devyn Blanc MD [address] [place] [address] PCP - General Family Practice 07/11/24 documented as of this encounter
[2025-01-22 14:53] LABS: Chloride* 102 mmol/L (96-114)
[2025-01-22 14:54] LABS: Albumin* 4.3 g/dL (3.3-5.0); Sodium* 140 mmol/L (135-149)
[2025-01-22 14:56] LABS: Blood Urea Nitrogen* 13 mg/dL (7-30); Creatinine* 0.7 mg/dL (0.5-1.5); Est. Creatinine Clearance* 64.84; Estimated Glomerular Filt Rate 94 ml/min
[2025-01-22 14:57] LABS: Alanine Aminotransferase* 10 U/L (4-50); Alkaline Phosphatase* 80 U/L (40-150); Anion Gap 10 mEq/L (7-15); Aspartate Amino Transferase* 24 U/L (12-35); Bilirubin Total* 0.6 mg/dL (0.1-1.5); Calcium* 9.7 mg/dL (8.4-10.6); Carbon Dioxide* 28 mmol/L (20-32); Glucose* 99 mg/dL (60-115); Total Protein* 7.4 g/dL (6.0-8.3)
[2025-01-22 15:00] LABS: C Reactive Protein* 7.3 mg/dL (0.5-1.0)
[2025-01-22 15:13] LABS: Basophils Absolute Auto 0.04 K/uL (0.00-0.30); Basophils Percent Auto 0.5 % (0.0-3.0); Eosinophils Absolute Auto 0.26 K/uL (0.00-0.50); Eosinophils Percent Auto 3.2 % (0.0-7.0); Hematocrit 42.4 % (37.0-53.0); Hemoglobin* 13.8 gm/dL (13.5-17.5); Immature Granulocytes Abs Auto 0.04 K/uL (0.00-0.30); Immature Granulocytes Pct Auto 0.5 %; Lymphocytes Percent Auto 16.2 % (20-44); Mean Corpuscular HGB Conc 33 gm/dL (32-36); Mean Corpuscular Hemoglobin 29 pg (26-34); Mean Corpuscular Volume 89 fL (80-100); Monocytes Percent Auto 7.5 % (0.0-11.0); Neutrophils Percent Auto 72.1 % (42.0-72.0); Platelet Count* 247 K/uL (140-440); RDW Coefficient of Variation % 13.2 % (11.5-15.5); Red Blood Count 4.79 m/uL (4.30-5.90); White Blood Count* 8.23 K/uL (4.50-11.00)
[2025-01-22 15:24] LABS: Slide Review Reflex No
[2025-01-22 15:32] VITALS: BP 132/83; PULSE 79; RESP 20; O2SAT 94
[2025-01-22] MEDS: ALBUTEROL SULFATE 2.5 MG/3 ML VIAL.NEB NEB (16:00)
[2025-01-22] MEDS: DEXAMETHASONE 10 MG/ML PF IVP (16:01)
[2025-01-22 16:14] VITALS: BP 128/89; PULSE 80; RESP 18; O2SAT 93
[2025-01-22 17:20] LABS: PCR FLU A Negative PCR FLU A (Negative); PCR FLU B Negative PCR FLU B (Negative); PCR RSV Negative PCR RSV (Negative); SARS PCR* Negative SARS-CoV-2 (Negative)
== END 2025-01-22 16:34 | disposition home or self-care (01) ==
PROVIDERS: Emergency Provider Family Medicine
DX: J18.9 Pneumonia, unspecified organism (principal); G20.A1 Parkinson's disease without dyskinesia, without mention of fluctuations; R51.9 Headache, unspecified; R06.02 Shortness of breath; Z87.891 Personal history of nicotine dependence
CPT/HCPCS: 36415; 71275; 80053; 84484; 85025; 86140; 87631; 93005; 94640; 96374; 99284; 99285; J1100; Q9967

== ENCOUNTER 2025-03-14 07:30 | Outpatient (RCR) | payer MEDICARE, SELFPAY | END 2025-03-14 11:29 | disposition home or self-care (01) | PROVIDERS: Visit Provider Neurological Surgery | DX: M54.50 Low back pain, unspecified (principal); R53.1 Weakness; Z51.89 Encounter for other specified aftercare | CPT/HCPCS: 97032; 97110; 97140; 97161 ==

== ENCOUNTER 2025-04-27 07:30 | Outpatient (RCR) | payer MEDICARE, SELFPAY | END 2025-08-25 23:59 | disposition home or self-care (01) | PROVIDERS: Visit Provider Student in an Organized Health Care Education/Training Program | DX: G20.A1 Parkinson's disease without dyskinesia, without mention of fluctuations (principal); Z51.89 Encounter for other specified aftercare | CPT/HCPCS: 97110; 97112; 97116; 97140; 97162; 97164; 97530 ==

== ENCOUNTER 2025-05-28 15:12 | Outpatient (CLI) | payer MEDICARE, SELFPAY ==
[2025-05-28 15:51] LABS: Creatinine* 0.7 mg/dL (0.5-1.5); Estimated Glomerular Filt Rate 94 ml/min
--- NOTE | 2025-05-28 16:00 | CRLHL7_ITS ---
For Patients: As a result of the Century Cures Act, medical imaging exams and procedure reports are released immediately into your electronic medical record. You may view this report before your referring provider. If you have questions, please contact your health care provider. INDICATION: Diastasis. Stomach bulges when supine. TECHNIQUE: Volumetric helical scanning of the abdomen and pelvis was performed with 114 cc of Isovue 370 contrast material IV. Coronal and sagittal reconstructions were obtained. COMPARISON: None FINDINGS: Supraumbilical rectus diastasis is demonstrated rectus muscle gap measured at up to 8.5 cm on image 93 of series 2. No hernia is evident. There is no evidence of bowel obstruction or inflammation. Fatty change is demonstrated in the liver. A 1 cm cyst is noted in liver segment 5. The liver is normal in size and shape. Post op changes of cholecystectomy are demonstrated. Few the bile ducts are within normal limits. The spleen, adrenal glands and pancreas are negative. Kidneys are unremarkable except for an exophytic 1.5 cm superior right renal parenchymal cyst no lymphadenopathy is evident. No free fluid is demonstrated. Prostate is mildly enlarged. The lung bases are essentially clear, and heart size is normal. Calcified coronary arterial plaque is demonstrated. IMPRESSION: 1. Supraumbilical rectus diastasis. No hernia evident. 2. Fatty liver and 1 cm segment 5 cyst. 3. Exophytic 1.5 cm superior right renal cyst. 4. Mild prostate enlargement. 5. Post cholecystectomy. Please note that all CT scans at this facility use dose modulation, iterative reconstruction, and/or weight-based dosing when appropriate to reduce radiation dose to as low as reasonably achievable. Dictated by Darinel Coelho MD @ 05/30/2025 12:31:18 PM (Electronically Signed)
== END 2025-05-28 15:13 | disposition home or self-care (01) ==
LOC: CT 15:14
PROVIDERS: PCP Physician Assistant Medical; Visit Provider Surgery
DX: R10.9 Unspecified abdominal pain (principal); K76.0 Fatty (change of) liver, not elsewhere classified; N28.1 Cyst of kidney, acquired; N40.0 Benign prostatic hyperplasia without lower urinary tract symptoms; M62.08 Separation of muscle (nontraumatic), other site
CPT/HCPCS: 36415; 74177; 82565; Q9967